=== PATIENT | male | born 1960 | race Caucasian/White ===

== ENCOUNTER 2016-05-24 10:55 | Emergency (ER) | payer OTHER ==
[2016-05-24 11:04] VITALS: BP 137/79; TEMP 98
[2016-05-24 12:05] VITALS: PULSE 77; RESP 16
[2016-05-24] MEDS ORDERED: HYDROcodone/APAP 5-325MG 1 EACH TAB PO STA (12:07)
[2016-05-24] MEDS ORDERED: KETOROLAC 60 MG/2 ML VIAL IM STA (12:07)
--- NOTE | 2016-05-24 12:13 | ED ---
General Adult HPI - General Chief complaint: Extremity Problem,Nontraumatic Stated complaint: Foot pain Time Seen by Provider: 05/24/16 12:01 Source: patient, RN notes reviewed Mode of arrival: wheelchair Limitations: no limitations - History of Present Illness Initial comments: Patient 55-year-old male with prescription of past mental history of gout, who presents emergency room today with chief complaint of flareup of gout to the first MTP joint of the left toe. Patient admits to symptoms started last night. Increased this morning. States that gout past and this feels the same. He denies any other complaints or associated symptoms. Patient denies any recent fever, chills, shortness of breath, chest pain, back pain, abdominal pain , nausea or vomiting, numbness or tingling, dysuria or hematuria, constipation or diarrhea, headaches or visual changes, or any other complaints. - Related Data Previous Rx's Medication Instructions Recorded Indomethacin [Indocin] 50 mg PO TID #30 capsule 01/10/16 Hydrocodone/Acetaminophen [[place] 1 each PO Q6HR PRN #20 tab 05/24/16 5-325] Ibuprofen [Motrin] 600 mg PO Q6HR PRN #40 day 05/24/16 Allergies Allergy/AdvReac Type Severity Reaction Status Date / Time Sulfa (Sulfonamide Allergy Rash/Hives Verified 01/10/16 11:24 Antibiotics) Review of Systems ROS Statement: Those systems with pertinent positive or pertinent negative responses have been documented in the HPI. ROS Other: All systems not noted in ROS Statement are negative. Past Medical History Past Medical History: No Reported History Additional Past Medical History / Comment(s): gout hep c History of Any Multi-Drug Resistant Organisms: None Reported Past Surgical History: No Surgical Hx Reported Past Psychological History: No Psychological Hx Reported Smoking Status: Never smoker Past Alcohol Use History: None Reported Past Drug Use History: None Reported General Exam - General Exam Comments Initial Comments: General: The patient is awake and alert, in no distress, and does not appear acutely ill. Neck: The neck is supple, there is no tenderness or JVD. Cardiovascular: There is a regular rate and rhythm. No murmur, rub or gallop is appreciated. Respiratory: Lungs are clear to auscultation, respirations are non-labored, breath sounds are equal. No wheezes, stridor, rales, or rhonchi. Musculoskeletal: Patient does have redness swelling to the left MTP joint. Locally tender in this area. Sensations are intact pulses equal bilaterally 2+ . Shows full range of motion of all other areas. Tender and range of motion to first digit of the left foot. Neurological: A&O x 3. CN II-XII intact, There are no obvious motor or sensory deficits. Coordination appears grossly intact. Speech is normal. Skin: Skin is warm and dry and no rashes or lesions are noted. Psychiatric: Normal mood and affect. Limitations: no limitations Course Vital Signs 05/24/16 11:02 Temperature 98.0 F Pulse Rate 77 Respiratory 16 Rate Blood Pressure 137/79 O2 Sat by Pulse 98 Oximetry Medical Decision Making - Medical Decision Making Patient admits to history States Feels Safe. Patient Treated for Gout flare up. In the emergency room. Given dose of Toradol and [place] here. Will be discharged home with pain medications advised follow-up family doctor. Disposition Clinical Impression: Gout flare Disposition: HOME SELF-CARE Condition: Good Instructions: Gout (ED) Additional Instructions: Family doctor in the next 2-5 days if symptoms are improved. Please use medications as prescribed. Please return here to emergency room for any symptoms increase or worsen or for any other concerns. Prescriptions: Hydrocodone/Acetaminophen [[place] 5-325] 1 each PO Q6HR PRN #20 tab PRN Reason: Pain Ibuprofen [Motrin] 600 mg PO Q6HR PRN #40 day PRN Reason: Pain Referrals: None,Stated [Primary Care Provider] - 1-2 days Pushpa Perez MD [REFERRING] - 1-2 days Time of Disposition: 12:12
== END 2016-05-24 12:30 | disposition home or self-care (01) ==
LOC: EC 10:55
DX: M10.9 Gout, unspecified (principal); Z88.2 Allergy status to sulfonamides
CPT/HCPCS: 96372; 99283; J1885

== ENCOUNTER 2019-01-22 00:48 | Emergency (ER) | payer OTHER ==
[2019-01-22 00:55] VITALS: BP 144/92; PULSE 94; RESP 18; TEMP 98
== END 2019-01-22 01:21 ==
LOC: EC 00:48
DX: Z02.89 Encounter for other administrative examinations (principal)

== ENCOUNTER 2019-04-03 17:02 | Emergency (ER) | payer OTHER ==
[2019-04-03 17:18] VITALS: BP 149/96; RESP 18
--- NOTE | 2019-04-03 17:32 | ED ---
Overdose HPI - General Chief Complaint: Overdose Stated Complaint: Overdose Time Seen by Provider: 04/03/19 17:12 Source: patient, EMS, RN notes reviewed, old records reviewed Mode of arrival: EMS Limitations: no limitations - History of Present Illness Initial Comments: 58-year-old male presents emergency department today for evaluation for chief complaint of axonal overdose. Patient was found on the side of the road while biking to work. Patient reportedly took a friend's pain medication for his gout in his left foot. He reports he is not used to taking pain medication normally does not take this. He was found unresponsive on the high side of the road and a bystander started CPR. EMS was called and gave him Narcan and Patient revived shortly afterwards. Patient reports that he is regretful and this was not a suicide attempt. He states that he wishes that he would not take the pain medicine and had no intentions on overdosing. He reports that he is on a thether for alcohol use monitoring. - Related Data Previous Rx's Medication Instructions Recorded Hydrocodone/Acetaminophen [[place] 1 each PO Q6HR PRN #20 tab 05/24/16 5-325] Ibuprofen [Motrin] 600 mg PO Q6HR PRN #40 day 05/24/16 Allergies Allergy/AdvReac Type Severity Reaction Status Date / Time Sulfa (Sulfonamide Allergy Rash/Hives Verified 01/22/19 00:54 Antibiotics) Review of Systems ROS Statement: Those systems with pertinent positive or pertinent negative responses have been documented in the HPI. ROS Other: All systems not noted in ROS Statement are negative. Past Medical History Past Medical History: No Reported History Additional Past Medical History / Comment(s): gout, hep c, ex ETOH History of Any Multi-Drug Resistant Organisms: None Reported Past Surgical History: No Surgical Hx Reported Past Psychological History: No Psychological Hx Reported Smoking Status: Never smoker Past Drug Use History: None Reported General Exam - General Exam Comments Initial Comments: 58-year-old male. Alert and oriented. No distress. Limitations: no limitations General appearance: alert, in no apparent distress Head exam: Present: atraumatic, normocephalic, normal inspection Eye exam: Present: normal appearance ENT exam: Present: normal exam, mucous membranes moist Neck exam: Present: normal inspection. Absent: tenderness, meningismus, lymphadenopathy Respiratory exam: Present: normal lung sounds bilaterally. Absent: respiratory distress, wheezes, rales, rhonchi, stridor Cardiovascular Exam: Present: regular rate, normal rhythm, normal heart sounds. Absent: systolic murmur, diastolic murmur, rubs, gallop, clicks GI/Abdominal exam: Present: soft, normal bowel sounds. Absent: distended, tenderness, guarding, rebound, rigid Extremities exam: Present: normal inspection, full ROM, normal capillary refill. Absent: tenderness, pedal edema, joint swelling, calf tenderness Back exam: Present: normal inspection Neurological exam: Present: alert, oriented X3, CN II-XII intact Psychiatric exam: Present: normal affect Skin exam: Present: warm, dry, intact, normal color. Absent: rash Course Vital Signs 04/03/19 04/03/19 17:05 18:15 Pulse Rate 102 H 82 Respiratory 18 Rate Blood Pressure 149/96 O2 Sat by Pulse 96 97 Oximetry Medical Decision Making - Medical Decision Making Patient is a 58-year-old male presents today for accidental overdose. He was revived by Narcan after being unresponsive, sidewalk while biking to work. Patient reports he he took a friend's pain pills for his left foot gout. Is having is alert and oriented. No distress. I discussed elective monitor the Patient for some time to make sure he doesn't have any rebound hypoxia an apneic episode. She denies any suicidal thoughts. Patient case was discussed with Dr. Bliss. Patient will be discharged to go back home. He is not cleared to go back to work at this time tonight. - Lab Data Lab Results 04/03/19 Range/Units 17:32 Urine Opiates Screen Detected H (NotDetected) Ur Oxycodone Screen Not Detected (NotDetected) Urine Methadone Screen Not Detected (NotDetected) Ur Propoxyphene Screen Not Detected (NotDetected) Ur Barbiturates Screen Not Detected (NotDetected) U Tricyclic Antidepress Not Detected (NotDetected) Ur Phencyclidine Scrn Not Detected (NotDetected) Ur Amphetamines Screen Not Detected (NotDetected) U Methamphetamines Scrn Not Detected (NotDetected) U Benzodiazepines Scrn Not Detected (NotDetected) Urine Cocaine Screen Not Detected (NotDetected) U Marijuana (THC) Screen Detected H (NotDetected) Disposition Clinical Impression: Accidental overdose Disposition: HOME SELF-CARE Condition: Good Instructions (If sedation given, give patient instructions): Adult Overdose (ED) Additional Instructions: Go directly home. Please follow up with family doctor if symptoms have not improved over the next two days. Please return to the emergency room if your symptoms increase or worsen or for any other concerns. Is patient prescribed a controlled substance at d/c from ED?: No Referrals: Pushpa Perez MD [Primary Care Provider] - 1-2 days Time of Disposition: 18:03
[2019-04-03 17:50] LABS: Amphetamine Screen,Urine Not Detected (NotDetected); Barbiturate Screen,Urine Not Detected (NotDetected); Benzodiazepines Screen,Urine Not Detected (NotDetected); Cocaine Screen,Urine Not Detected (NotDetected); Methadone Screen, Urine Not Detected (NotDetected); Opiate Screen,Urine Detected (NotDetected); Oxycodone Screen, Urine Not Detected (NotDetected); Phencyclidine Screen,Urine Not Detected (NotDetected); Tricyclic Antidepressant,Urine Not Detected (NotDetected); Urn Cannabinoid Scrn Detected (NotDetected)
[2019-04-03 18:16] VITALS: PULSE 82
== END 2019-04-03 18:16 | disposition home or self-care (01) ==
LOC: EC 17:02
DX: T50.991A Poisoning by other drugs, medicaments and biological substances, accidental (unintentional), initial encounter (principal); M10.9 Gout, unspecified; Y92.89 Other specified places as the place of occurrence of the external cause; Z88.2 Allergy status to sulfonamides
CPT/HCPCS: 80306; 99285

== ENCOUNTER 2019-05-14 10:28 | Emergency (ER) | payer OTHER ==
[2019-05-14 10:36] VITALS: BP 131/93; PULSE 94; RESP 18; TEMP 98.1
[2019-05-14] MEDS ORDERED: MORPHINE SULFATE 4 MG/ML SYRINGE IM STA (11:09)
--- NOTE | 2019-05-14 11:29 | XR ---
EXAMINATION TYPE: XR lumbosacral spine min 4V DATE OF EXAM: 05/14/2019 COMPARISON: None HISTORY: Paresthesia TECHNIQUE: Five-view lumbar spine FINDINGS: There 5 lumbar-type vertebral bodies. The pedicles are intact. Spondylosis is present. No s pondylolytic defects are evident. Mild facet degenerative changes present on the right in the lower l umbar spine. There is posterior disc space narrowing L4-5 L5-S1. Remaining disc heights are preserved . Vertebral body heights are preserved. No suspicious acute changes evident. IMPRESSION: 1. Mild degenerative disc change posterior L4-5 L5-S1 disc spaces. 2. Mild facet degenerative changes lower lumbar spine
--- NOTE | 2019-05-14 11:29 | ED ---
Extremity Problem HPI - General Chief complaint: Extremity Problem,Nontraumatic Stated complaint: bilat foot numbness/swelling Time Seen by Provider: 05/14/19 11:02 Source: patient, RN notes reviewed Mode of arrival: wheelchair Limitations: no limitations - History of Present Illness Initial comments: 58-year-old male presents emergency Department with chief complaint of bilateral leg pain. Patient states that he bent over yesterday and started feeling some discomfort from his mid calf down bilaterally. Patient states felt this feet were swollen but not swollen at this time no discoloration. He states that every now become burning feeling. Patient states he does go to the PCP yearly states he is diagnosed with prediabetes. Patient states that dietary controls. Patient denies any current significant back pain, bowel bladder incontinence or retention denies any trauma to his feet. - Related Data Previous Rx's Medication Instructions Recorded Hydrocodone/Acetaminophen [[place] 1 each PO Q6HR PRN #20 tab 05/24/16 5-325] Ibuprofen [Motrin] 600 mg PO Q6HR PRN #40 day 05/24/16 Ibuprofen [Motrin] 600 mg PO Q8HR PRN #30 tab 05/14/19 metFORMIN HCL [Glucophage] 500 mg PO BID #30 tab 05/14/19 Allergies Allergy/AdvReac Type Severity Reaction Status Date / Time Sulfa (Sulfonamide Allergy Rash/Hives Verified 05/14/19 10:33 Antibiotics) Review of Systems ROS Statement: Those systems with pertinent positive or pertinent negative responses have been documented in the HPI. ROS Other: All systems not noted in ROS Statement are negative. Past Medical History Past Medical History: No Reported History Additional Past Medical History / Comment(s): gout, hep c (cured), ex ETOH History of Any Multi-Drug Resistant Organisms: None Reported Past Surgical History: No Surgical Hx Reported Past Psychological History: No Psychological Hx Reported Smoking Status: Never smoker Past Alcohol Use History: None Reported, Abuse Past Drug Use History: None Reported General Exam Limitations: no limitations General appearance: alert, in no apparent distress Head exam: Present: atraumatic, normocephalic, normal inspection Eye exam: Present: normal appearance, PERRL, EOMI. Absent: scleral icterus, conjunctival injection, periorbital swelling ENT exam: Present: normal exam, normal oropharynx, mucous membranes moist Neck exam: Present: normal inspection, full ROM. Absent: tenderness, meningismus, lymphadenopathy Respiratory exam: Present: normal lung sounds bilaterally. Absent: respiratory distress, wheezes, rales, rhonchi, stridor Cardiovascular Exam: Present: regular rate, normal rhythm, normal heart sounds. Absent: systolic murmur, diastolic murmur, rubs, gallop, clicks Extremities exam: Present: other (Bilateral lower extremity pulses equal bilaterally, equal sensation no discoloration equal warmth) Back exam: Present: full ROM. Absent: tenderness, paraspinal tenderness, vertebral tenderness Neurological exam: Present: alert, oriented X3, CN II-XII intact, reflexes normal. Absent: motor sensory deficit Course Vital Signs 05/14/19 10:33 Temperature 98.1 F Pulse Rate 94 Respiratory 18 Rate Blood Pressure 131/93 O2 Sat by Pulse 96 Oximetry Medical Decision Making - Medical Decision Making Patient had complaints of bilateral foot pain. Patient does have hyperglycemia new onset diabetes and which this may be related to neuropathy. Patient be discharged with metformin, patient was hydrated, given NovoLog. Patient advised follow-up with PCP in 24 hours and return for any worsening symptoms. - Lab Data Result diagrams: 05/14/19 12:15 05/14/19 12:15 Lab Results 05/14/19 05/14/19 05/14/19 Range/Units 11:50 12:15 12:15 WBC 9.9 (3.8-10.6) k/uL RBC 5.17 (4.30-5.90) m/uL Hgb 15.7 (13.0-17.5) gm/dL Hct 48.5 (39.0-53.0) % MCV 93.8 (80.0-100.0) fL MCH 30.4 (25.0-35.0) pg MCHC 32.4 (31.0-37.0) g/dL RDW 13.1 (11.5-15.5) % Plt Count 234 (150-450) k/uL Neutrophils % 68 % Lymphocytes % 17 % Monocytes % 7 % Eosinophils % 2 % Basophils % 3 % Neutrophils # 6.7 (1.3-7.7) k/uL Lymphocytes # 1.7 (1.0-4.8) k/uL Monocytes # 0.7 (0-1.0) k/uL Eosinophils # 0.2 (0-0.7) k/uL Basophils # 0.3 H (0-0.2) k/uL Sodium 133 L (137-145) mmol/L Potassium 5.3 H (3.5-5.1) mmol/L Chloride 94 L (98-107) mmol/L Carbon Dioxide 25 (22-30) mmol/L Anion Gap 14 mmol/L BUN 28 H (9-20) mg/dL Creatinine 0.87 (0.66-1.25) mg/dL Est GFR (CKD-EPI)AfAm >90 (>60 ml/min/1.73 sqM) Est GFR (CKD-EPI)NonAf >90 (>60 ml/min/1.73 sqM) Glucose 363 H (74-99) mg/dL POC Glucose (mg/dL) 329 H (75-99) mg/dL POC Glu [employer]t [employer] ID Cynthia Ochoa Calcium 9.9 (8.4-10.2) mg/dL Total Bilirubin 1.3 (0.2-1.3) mg/dL AST 126 H (17-59) U/L ALT 421 H (4-49) U/L Alkaline Phosphatase 274 H (38-126) U/L Total Protein 8.8 H (6.3-8.2) g/dL Albumin 4.6 (3.5-5.0) g/dL Disposition Clinical Impression: Neuropathy of both feet, Diabetes mellitus, new onset Disposition: HOME SELF-CARE Condition: Stable Instructions (If sedation given, give patient instructions): Peripheral Neuropathy (ED), Type 2 Diabetes in Adults: New Diagnosis (ED) Additional Instructions: Please return to the Emergency Department if symptoms worsen or any other concerns. Prescriptions: metFORMIN HCL [Glucophage] 500 mg PO BID #30 tab Ibuprofen [Motrin] 600 mg PO Q8HR PRN #30 tab PRN Reason: Pain Is patient prescribed a controlled substance at d/c from ED?: No Referrals: Pushpa Perez MD [Primary Care Provider] - 1-2 days Time of Disposition: 13:10
[2019-05-14 11:54] LABS: Glucose,Whole Blood 329 mg/dL (75-99)
[2019-05-14] MEDS ORDERED: INSULIN ASPART (NovoLOG) 100 UNIT/ML VIAL SQ ONE (12:33)
[2019-05-14] MEDS ORDERED: SODIUM CHLORIDE 0.9% 1,000 ML IV ONE (12:35)
[2019-05-14 12:43] LABS: Basophils # (A) 0.3 k/uL (0-0.2); Basophils % (A) 3 %; Eosinophils # (A) 0.2 k/uL (0-0.7); Eosinophils % (A) 2 %; HCT 48.5 % (39.0-53.0); HGB 15.7 gm/dL (13.0-17.5); Lymphocytes # (A) 1.7 k/uL (1.0-4.8); Lymphocytes % (A) 17 %; MCH 30.4 pg (25.0-35.0); MCHC 32.4 g/dL (31.0-37.0); MCV 93.8 fL (80.0-100.0); Mean Platelet Volume 7.5; Monocytes # (A) 0.7 k/uL (0-1.0); Monocytes % (A) 7 %; Neutrophils # (A) 6.7 k/uL (1.3-7.7); Neutrophils % (A) 68 %; Platelet Count 234 k/uL (150-450); RBC 5.17 m/uL (4.30-5.90); RDW 13.1 % (11.5-15.5); WBC 9.9 k/uL (3.8-10.6)
[2019-05-14 12:45] LABS: ALT 421 U/L (4-49); AST 126 U/L (17-59); African American GFR (CKD) >90 (>60 ml/min/1.73 sqM); Albumin 4.6 g/dL (3.5-5.0); Alkaline Phosphatase 274 U/L (38-126); Anion Gap 14 mmol/L; Blood Urea Nitrogen 28 mg/dL (9-20); Calcium 9.9 mg/dL (8.4-10.2); Carbon Dioxide 25 mmol/L (22-30); Chloride 94 mmol/L (98-107); Glucose 363 mg/dL (74-99); Non-African American GFR(CKD) >90 (>60 ml/min/1.73 sqM); Potassium 5.3 mmol/L (3.5-5.1); Sodium 133 mmol/L (137-145); Total Bilirubin 1.3 mg/dL (0.2-1.3); Total Protein 8.8 g/dL (6.3-8.2)
[2019-05-14] MEDS ORDERED: ACET/COD 300 MG/30 MG STARTER PACK 6 TAB BTL PO STA (13:11)
== END 2019-05-14 13:45 | disposition home or self-care (01) ==
LOC: EC 10:28
DX: E11.40 Type 2 diabetes mellitus with diabetic neuropathy, unspecified (principal); Z88.2 Allergy status to sulfonamides
CPT/HCPCS: 36415; 80053; 82009; 85025; 72110; 99284; 96360; 96372; J2270

== ENCOUNTER 2019-09-07 20:27 | Observation (INO) | payer OTHER ==
[2019-09-07 20:48] LABS: Basophils # (A) 0.1 k/uL (0-0.2); Basophils % (A) 1 %; Eosinophils # (A) 0.4 k/uL (0-0.7); Eosinophils % (A) 3 %; HCT 48.2 % (39.0-53.0); HGB 15.1 gm/dL (13.0-17.5); Hypochromasia Slight; Lymphocytes # (A) 4.2 k/uL (1.0-4.8); Lymphocytes % (A) 31 %; MCHC 31.3 g/dL (31.0-37.0); MCV 102.3 fL (80.0-100.0); Macrocytosis Slight; Mean Platelet Volume 7.3; Monocytes # (A) 0.8 k/uL (0-1.0); Monocytes % (A) 6 %; Neutrophils # (A) 7.4 k/uL (1.3-7.7); Neutrophils % (A) 55 %; Platelet Count 260 k/uL (150-450); RBC 4.71 m/uL (4.30-5.90); RDW 13.2 % (11.5-15.5); WBC 13.5 k/uL (3.8-10.6)
[2019-09-07 20:59] LABS: Albumin 5.2 g/dL (3.5-5.0); Calcium 9.3 mg/dL (8.4-10.2); Creatine Kinase 702 U/L (55-170); Potassium 3.7 mmol/L (3.5-5.1); Total Bilirubin 0.4 mg/dL (0.2-1.3); Total Protein 8.9 g/dL (6.3-8.2)
[2019-09-07 20:59] LABS: Appearance,Urine Clear (Clear); Bilirubin,Urine Negative (Negative); Blood,Urine Small (Negative); Color,Urine Yellow; Glucose,Urine (UA) 4+ (Negative); Hyaline Casts,Urine 10 /lpf (0-2); Ketones,Urine 1+ (Negative); Leukocyte Esterase,Urine Negative (Negative); Mucus,Urine Rare /hpf; Nitrite,Urine Negative (Negative); Protein,Urine 1+ (Negative); RBC,Urine <1 /hpf (0-5); Specific Gravity,Urine 1.026 (1.001-1.035); Urobilinogen,Urine <2.0 mg/dL (<2.0); WBC,Urine <1 /hpf (0-5)
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
[2019-09-07 21:05] LABS: Amphetamine Screen,Urine Not Detected (NotDetected); Barbiturate Screen,Urine Not Detected (NotDetected); Benzodiazepines Screen,Urine Not Detected (NotDetected); Cocaine Screen,Urine Not Detected (NotDetected); Methadone Screen, Urine Not Detected (NotDetected); Opiate Screen,Urine Not Detected (NotDetected); Oxycodone Screen, Urine Not Detected (NotDetected); Phencyclidine Screen,Urine Not Detected (NotDetected); Tricyclic Antidepressant,Urine Not Detected (NotDetected); Urn Cannabinoid Scrn Not Detected (NotDetected)
[2019-09-07 21:09] LABS: Prothrombin Time 10.2 sec (9.0-12.0)
[2019-09-07 21:13] LABS: Creatine Kinase MB 6.3 ng/mL (0.0-2.4); Partial Thromboplastin Time 20.7 sec (22.0-30.0); Troponin I <0.012 ng/mL (0.000-0.034)
--- NOTE | 2019-09-07 21:19 | XR ---
EXAMINATION TYPE: XR pelvis AP view DATE OF EXAM: 09/07/2019 COMPARISON: NONE HISTORY: Pain TECHNIQUE: Single view FINDINGS: Pelvic ring is intact. Proximal femurs and hip joints are intact. Sacroiliac joints are nor mal. There is no evidence of a fracture. There is no sign of hip dysplasia. IMPRESSION: Negative pelvis exam. No fracture.
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
[2019-09-07 22:06] LABS: Acetaminophen <10.0 ug/mL
[2019-09-07] MEDS ORDERED: hydrALAZINE HCL 20 MG/ML 1 ML VIAL IVP STA (22:52)
[2019-09-07] MEDS ORDERED: SODIUM CHLORIDE 0.9% 1,000 ML IV ONE (22:58)
[2019-09-07] MEDS ORDERED: SODIUM CHLORIDE 0.9% 1,000 ML IV SCH (23:00)
[2019-09-07] MEDS ORDERED: LORazepam 2 MG/ML INJ IV STA (23:01)
[2019-09-07 23:25] LABS: Glucose,Whole Blood 272 mg/dL (75-99)
[2019-09-08 00:07] VITALS: BP 162/100; PULSE 103; RESP 17; TEMP 98.1
[2019-09-08] MEDS ORDERED: INSULIN ASPART (NovoLOG) 100 UNIT/ML VIAL SQ SCH (07:30)
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
== END 2019-09-08 01:58 | disposition left against medical advice (07) ==
LOC: EC 20:27 → 4SSUR 23:02
PROVIDERS: ADMIT Surgery; ATTEND Surgery
DX: S06.9X9A Unspecified intracranial injury with loss of consciousness of unspecified duration, initial encounter (principal); S00.81XA Abrasion of other part of head, initial encounter; R41.82 Altered mental status, unspecified; I10 Essential (primary) hypertension; E87.2 Acidosis; R73.9 Hyperglycemia, unspecified; F10.129 Alcohol abuse with intoxication, unspecified; M10.9 Gout, unspecified; Z53.29 Procedure and treatment not carried out because of patient's decision for other reasons; Z79.84 Long term (current) use of oral hypoglycemic drugs; Z79.1 Long term (current) use of non-steroidal anti-inflammatories (NSAID); Z79.891 Long term (current) use of opiate analgesic; Z88.2 Allergy status to sulfonamides; Z86.19 Personal history of other infectious and parasitic diseases; V18.4XXA Pedal cycle driver injured in noncollision transport accident in traffic accident, initial encounter; Z03.818 Encounter for observation for suspected exposure to other biological agents ruled out
CPT/HCPCS: 96361 ×2; 96374; 96375; 99291; 36415; 93005; 86900; 86901; 80053; 82150; 82550; 82553; 82009; 83605 ×2; 83690; 84484; 85025; 85610; 85730; 86850; 81001; 80306; 87635; 72170; 71045; 72125; 70450; G0378; G0480 ×2; J2060; J0360; 80320; 80329

== ENCOUNTER 2019-11-19 23:26 | Emergency (ER) | payer OTHER ==
[2019-11-19 23:33] VITALS: RESP 18
--- NOTE | 2019-11-19 23:38 | ED ---
Neuro HPI - General Chief Complaint: Neuro Symptoms/Deficit Stated Complaint: Neuro Deficit Time Seen by Provider: 11/19/19 23:38 Source: patient Mode of arrival: ambulatory Limitations: no limitations - History of Present Illness Is the patient presenting with stroke symptoms?: No -: hour(s) Initial Comments: Ji is a 59-year-old male who presents to the ER today for evaluation of right arm weakness. Patient reports he noticed today that he cannot extend his wrist or move his fingers on his right hand. He denies any falls or injuries. He denies any known trauma. He states that initially he thought he had supplements arm funny however it hasn't improved over a course of the day which prompted him to come to the ER for evaluation. Patient denies any associated headache, vision change, difficulty with speech or swallowing, weakness in the legs or difficulty walking. Patient reports normal strength and range of motion with the shoulder and elbow and complains only of weakness in the wrist and hand. Patient also reports that the wrist and hand feel numb. - Related Data Home Medications: Home Medications Medication Instructions Recorded Confirmed HYDROcodone/APAP 10-325MG [[place] 0.5 - 1 tab PO DAILY PRN 09/07/19 09/07/19 10-325] Insulin Glargine,Hum.rec.anlog See Protocol SQ DAILY 09/07/19 09/07/19 [Basaglar Kwikpen U-100] Naproxen 500 mg PO BID PRN 09/07/19 09/07/19 metFORMIN HCL [Glucophage] 850 mg PO AC-BID 09/07/19 09/07/19 Allergies/Adverse Reactions: Allergies Allergy/AdvReac Type Severity Reaction Status Date / Time Sulfa (Sulfonamide Allergy Rash/Hives Verified 11/19/19 23:33 Antibiotics) Review of Systems ROS Statement: Those systems with pertinent positive or pertinent negative responses have been documented in the HPI. ROS Other: All systems not noted in ROS Statement are negative. General Exam - General Exam Comments Initial Comments: Physical Exam GENERAL: Appears older than stated age HENT: Normocephalic Well-healing abrasion on the crown of the head secondary to fall EYES: PERRL, EOMI PULMONARY: Unlabored respirations. CARDIOVASCULAR: RRR Warm and well perfused extremities ABDOMEN: Non-distended SKIN: Well-healing abrasion on the anterior chest secondary to previous fall : Deferred NEUROLOGIC: Alert and oriented Normal speech Normal gait Inability to extend the wrist OR abduct the fingers of the right hand. Normal flexion and extension of the elbow, normal strength of the shoulder. Decreased sensation in the radial nerve distribution MUSCULOSKELETAL: No signs of trauma, weakness as noted above PSYCHIATRIC: No SI/HI Limitations: no limitations Stroke MDM - Lab Data Result diagrams: 11/20/19 00:41 11/20/19 00:41 Lab Results 11/20/19 11/20/19 11/20/19 Range/Units 00:41 00:41 00:41 WBC 6.2 (3.8-10.6) k/uL RBC 4.38 (4.30-5.90) m/uL Hgb 13.6 (13.0-17.5) gm/dL Hct 42.8 (39.0-53.0) % MCV 97.9 (80.0-100.0) fL MCH 31.1 (25.0-35.0) pg MCHC 31.8 (31.0-37.0) g/dL RDW 12.3 (11.5-15.5) % Plt Count 225 (150-450) k/uL Neutrophils % 62 % Lymphocytes % 26 % Monocytes % 5 % Eosinophils % 3 % Basophils % 1 % Neutrophils # 3.8 (1.3-7.7) k/uL Lymphocytes # 1.6 (1.0-4.8) k/uL Monocytes # 0.3 (0-1.0) k/uL Eosinophils # 0.2 (0-0.7) k/uL Basophils # 0.1 (0-0.2) k/uL PT 9.6 (9.0-12.0) sec INR 0.9 (<1.2) APTT 22.2 (22.0-30.0) sec Sodium 139 (137-145) mmol/L Potassium 4.3 (3.5-5.1) mmol/L Chloride 102 (98-107) mmol/L Carbon Dioxide 27 (22-30) mmol/L Anion Gap 10 mmol/L BUN 11 (9-20) mg/dL Creatinine 0.60 L (0.66-1.25) mg/dL Est GFR (CKD-EPI)AfAm >90 (>60 ml/min/1.73 sqM) Est GFR (CKD-EPI)NonAf >90 (>60 ml/min/1.73 sqM) Glucose 240 H (74-99) mg/dL Calcium 9.1 (8.4-10.2) mg/dL Total Bilirubin 0.5 (0.2-1.3) mg/dL AST 88 H (17-59) U/L ALT 46 (4-49) U/L Alkaline Phosphatase 66 (38-126) U/L Creatine Kinase 1073 H* (55-170) U/L Total Protein 7.4 (6.3-8.2) g/dL Albumin 4.4 (3.5-5.0) g/dL - NIH Stroke Scale 1a. Level of Consciousness: (0) alert 1b. LOC Questions: (0) answers correctly 1c. LOC Commands: (0) performs tasks correctly 2. Best Gaze: (0) normal 3. Visual: (0) no visual loss 4. Facial Palsy: (0) normal symmetrical movement 5a. Motor Arm Left: (0) no drift 5b. Motor Arm Right: (0) no drift 6a. Motor Leg Left: (0) no drift 6b. Motor Leg Right: (0) no drift 7. Limb Ataxia: (0) absent 8. Sensory: (0) normal 9. Best Language: (0) no aphasia 10. Dysarthria: (0) normal 11. Extinction/Inattention: (0) no abnormality NIH Score total: 0 - Thrombolytic Inclusion/Exclusion Thrombolytic Exclusion Criteria: Symptom Onset > 4.5 Hours - Medical Decision Making Patient was seen and evaluated history is obtained from the patient History and physical exam are concerning with a radial nerve palsy discussed with the patient that this is also cul-de-sac urinary palsy and often caused by compression in the axilla or compression of the arm. Patient does admit to having concern for this. Of note the patient does have a history of polysubstance abuse and was [place] un[place] this [place]. I do a very high suspicion that this is isolated mononeuropathy, however given the patient's relatively recent head trauma we will obtain labs and CT imaging Labs resulted with elevated creatinine kinase Ayah this is likely related to patient sleeping on the arm and an atypical position Head CT had no acute findings Results were discussed with patient who expresses relief and is comfortable with plan for discharge home. I did offer to place the patient's wrist in a splint for support however he declined stating that he would just follow with Dr. Burnett tomorrow. Past Medical History Past Medical History: No Reported History Additional Past Medical History / Comment(s): gout, hep c (cured), ex ETOH History of Any Multi-Drug Resistant Organisms: None Reported Past Surgical History: No Surgical Hx Reported Past Psychological History: No Psychological Hx Reported Smoking Status: Never smoker Past Alcohol Use History: Abuse, Daily Past Drug Use History: None Reported Course Vital Signs 11/19/19 23:27 Temperature 98.4 F Pulse Rate 104 H Respiratory 18 Rate Blood Pressure 149/90 O2 Sat by Pulse 89 L Oximetry Disposition Clinical Impression: Right radial nerve palsy Disposition: HOME SELF-CARE Condition: Stable Instructions (If sedation given, give patient instructions): Radial Nerve Palsy (ED) Is patient prescribed a controlled substance at d/c from ED?: No Referrals: Pushpa Perez MD [Primary Care Provider] - 1-2 days
[2019-11-20] MEDS ORDERED: SODIUM CHLORIDE 0.9% 1,000 ML IV STA (00:15)
[2019-11-20 00:50] LABS: Basophils # (A) 0.1 k/uL (0-0.2); Basophils % (A) 1 %; Eosinophils # (A) 0.2 k/uL (0-0.7); Eosinophils % (A) 3 %; HCT 42.8 % (39.0-53.0); HGB 13.6 gm/dL (13.0-17.5); Lymphocytes # (A) 1.6 k/uL (1.0-4.8); Lymphocytes % (A) 26 %; MCH 31.1 pg (25.0-35.0); MCHC 31.8 g/dL (31.0-37.0); MCV 97.9 fL (80.0-100.0); Mean Platelet Volume 7.3; Monocytes # (A) 0.3 k/uL (0-1.0); Monocytes % (A) 5 %; Neutrophils # (A) 3.8 k/uL (1.3-7.7); Neutrophils % (A) 62 %; Platelet Count 225 k/uL (150-450); RBC 4.38 m/uL (4.30-5.90); RDW 12.3 % (11.5-15.5); WBC 6.2 k/uL (3.8-10.6)
[2019-11-20 01:00] LABS: ALT 46 U/L (4-49); AST 88 U/L (17-59); African American GFR (CKD) >90 (>60 ml/min/1.73 sqM); Albumin 4.4 g/dL (3.5-5.0); Alkaline Phosphatase 66 U/L (38-126); Anion Gap 10 mmol/L; Blood Urea Nitrogen 11 mg/dL (9-20); Calcium 9.1 mg/dL (8.4-10.2); Carbon Dioxide 27 mmol/L (22-30); Chloride 102 mmol/L (98-107); Glucose 240 mg/dL (74-99); Non-African American GFR(CKD) >90 (>60 ml/min/1.73 sqM); Potassium 4.3 mmol/L (3.5-5.1); Sodium 139 mmol/L (137-145); Total Bilirubin 0.5 mg/dL (0.2-1.3); Total Protein 7.4 g/dL (6.3-8.2)
[2019-11-20 01:02] LABS: INR 0.9 (<1.2); Partial Thromboplastin Time 22.2 sec (22.0-30.0); Prothrombin Time 9.6 sec (9.0-12.0)
--- NOTE | 2019-11-20 01:13 | CT ---
EXAMINATION TYPE: CT brain wo con DATE OF EXAM: 11/20/2019 COMPARISON: September 07, 2019 HISTORY: injury to top of head, numbess in right hand, neuro deficits, stroke suspected CT DLP: 1172.4 mGycm Automated exposure control for dose reduction was used. Ventricles and sulci appear normal. There is no mass effect nor midline shift. There is no sign of in tracranial hemorrhage. The calvarium is intact. There is no evidence of cerebral edema. IMPRESSION: Head CT scan appears normal for age. No change.
[2019-11-20 01:15] LABS: Creatine Kinase 1073 U/L (55-170)
[2019-11-20 02:51] VITALS: BP 151/72; PULSE 70; TEMP 98.1
== END 2019-11-20 02:51 | disposition home or self-care (01) ==
LOC: EC 23:26
DX: G56.31 Lesion of radial nerve, right upper limb (principal); S00.01XA Abrasion of scalp, initial encounter; S20.319A Abrasion of unspecified front wall of thorax, initial encounter; Z79.4 Long term (current) use of insulin; Z88.2 Allergy status to sulfonamides; Z53.29 Procedure and treatment not carried out because of patient's decision for other reasons; W19.XXXA Unspecified fall, initial encounter
CPT/HCPCS: 36415; 70450; 80053; 82550; 85025; 85610; 85730; 96360; 96361; 99285

== ENCOUNTER 2021-01-15 16:09 | Emergency (ER) | payer OTHER ==
[2021-01-15 16:19] VITALS: RESP 18
[2021-01-15 16:25] LABS: Glucose,Whole Blood 57 mg/dL (75-99)
[2021-01-15 16:46] LABS: Glucose,Whole Blood 106 mg/dL (75-99)
[2021-01-15] MEDS ORDERED: HYDROmorphone 1 MG/ML 1 ML SYRINGE IM STA (17:43)
--- NOTE | 2021-01-15 17:56 | ED ---
Back Pain HPI - General Chief Complaint: Back Pain/Injury Stated Complaint: Hypoglycemia, back pain Time Seen by Provider: 01/15/21 17:14 Source: patient, EMS, RN notes reviewed Limitations: no limitations - History of Present Illness Initial Comments: This a 60-year-old male presents emergency from chief complaint low back pain. Patient states his walking states that he had a sudden onset of pain in his low back he states he felt like he pulled a muscle. Patient states that his ankle EMS at that time. Patient states his walking it's of the knee and he had not eaten all day after taking his diabetic medications. Patient went of low glucose of 57. Patient denies any chest pain denies any bowel bladder incontinence or retention of saddle anesthesias. Patient states this pain only has low back injuries had pain like this in the past. - Related Data Home Medications Medication Instructions Recorded Confirmed metFORMIN HCL [Glucophage] 850 mg PO AC-BID 09/07/19 01/15/21 Previous Rx's Medication Instructions Recorded Cyclobenzaprine [Flexeril] 10 mg PO TID PRN #15 tab 01/15/21 Ibuprofen [Motrin] 600 mg PO Q8HR PRN #30 tab 01/15/21 Allergies Allergy/AdvReac Type Severity Reaction Status Date / Time Sulfa (Sulfonamide Allergy Rash/Hives Verified 01/15/21 17:39 Antibiotics) Review of Systems ROS Statement: Those systems with pertinent positive or pertinent negative responses have been documented in the HPI. ROS Other: All systems not noted in ROS Statement are negative. Past Medical History Past Medical History: Diabetes Mellitus Additional Past Medical History / Comment(s): gout, hep c (cured), ex ETOH History of Any Multi-Drug Resistant Organisms: None Reported Past Surgical History: No Surgical Hx Reported Past Psychological History: No Psychological Hx Reported Smoking Status: Never smoker Past Alcohol Use History: Daily Past Drug Use History: None Reported General Exam Limitations: no limitations General appearance: alert, in no apparent distress Head exam: Present: atraumatic, normocephalic, normal inspection Eye exam: Present: normal appearance, PERRL, EOMI. Absent: scleral icterus, conjunctival injection, periorbital swelling ENT exam: Present: normal exam, normal oropharynx, mucous membranes moist Neck exam: Present: normal inspection, full ROM. Absent: tenderness, meningismus, lymphadenopathy Respiratory exam: Present: normal lung sounds bilaterally. Absent: respiratory distress, wheezes, rales, rhonchi, stridor Cardiovascular Exam: Present: regular rate, normal rhythm, normal heart sounds. Absent: systolic murmur, diastolic murmur, rubs, gallop, clicks GI/Abdominal exam: Present: soft, normal bowel sounds. Absent: distended, tenderness, guarding, rebound, rigid Extremities exam: Present: normal inspection, full ROM, normal capillary refill. Absent: tenderness, pedal edema, joint swelling, calf tenderness Back exam: Present: full ROM, tenderness, muscle spasm, paraspinal tenderness. Absent: vertebral tenderness Neurological exam: Present: reflexes normal. Absent: motor sensory deficit Skin exam: Present: warm, dry, intact, normal color. Absent: rash Course Vital Signs 01/15/21 01/15/21 16:11 18:28 Pulse Rate 107 H 107 H Respiratory 18 18 Rate Blood Pressure 119/92 126/88 O2 Sat by Pulse 100 98 Oximetry Medical Decision Making - Medical Decision Making 60-year-old presented for low back pain. Patient is a lumbar strain. He is neurologically intact with no red flag symptoms. X-rays unremarkable. Patient did have some mild hyperglycemia. Was able to eat and drink here with no problems. Patient discharged. - Lab Data Lab Results 01/15/21 01/15/21 Range/Units 16:13 16:44 POC Glucose (mg/dL) 57 L 106 H (75-99) mg/dL POC Glu Core Worker ID Beto Segal Alana Disposition Clinical Impression: Hypoglycemia, Lumbar strain Disposition: HOME SELF-CARE Condition: Stable Instructions (If sedation given, give patient instructions): Acute Low Back Pain (ED) Additional Instructions: Please return to the Emergency Department if symptoms worsen or any other concerns. Prescriptions: Cyclobenzaprine [Flexeril] 10 mg PO TID PRN #15 tab PRN Reason: Muscle Spasm Ibuprofen [Motrin] 600 mg PO Q8HR PRN #30 tab PRN Reason: Pain Is patient prescribed a controlled substance at d/c from ED?: No Referrals: Pushpa Perez MD [Primary Care Provider] - 1-2 days Time of Disposition: 18:56
--- NOTE | 2021-01-15 18:40 | XR ---
EXAMINATION TYPE: XR lumbar spine 2 or 3V DATE OF EXAM: 01/15/2021 CLINICAL HISTORY: Pain TECHNIQUE: Frontal and lateral images of the lumbar spine are obtained. COMPARISON: 05/14/2019 FINDINGS: There are 5 lumbar type vertebral bodies identified. Levocurvature of the lumbar spine. No acute fracture or dislocation. Vertebral body heights are normal. There is moderate diffuse multilev el degenerative spurring of the endplates. Multilevel facet arthropathy. No spondylolisthesis. The o verlying soft tissue appears unremarkable. IMPRESSION: No acute fracture or dislocation is seen in the lumbar spine.
[2021-01-15] MEDS ORDERED: DIAZEPAM 5 MG/ML 2 ML INJ IM ONE (18:54)
[2021-01-15] MEDS ORDERED: ACET/COD 300 MG/30 MG STARTER PACK 6 TAB BTL PO STA (18:54)
[2021-01-15 19:30] VITALS: BP 123/90; PULSE 112
== END 2021-01-15 19:27 | disposition home or self-care (01) ==
LOC: EC 16:09
DX: S39.012A Strain of muscle, fascia and tendon of lower back, initial encounter (principal); E11.649 Type 2 diabetes mellitus with hypoglycemia without coma; Z79.84 Long term (current) use of oral hypoglycemic drugs; Z88.2 Allergy status to sulfonamides; X58.XXXA Exposure to other specified factors, initial encounter
CPT/HCPCS: 99284; 96372 ×2; 36415; 72100; J3360; J1170

== ENCOUNTER 2021-01-17 05:24 | Emergency (ER) | payer OTHER ==
[2021-01-17 05:32] VITALS: BP 116/83; PULSE 65; RESP 20; TEMP 99
--- NOTE | 2021-01-17 05:51 | XR ---
EXAMINATION TYPE: XR Hip Complete RT DATE OF EXAM: 01/17/2021 COMPARISON: NONE HISTORY: Hip pain TECHNIQUE: 2 views FINDINGS: The right hemipelvis is intact. Proximal femur is intact. There is no fracture nor dislocat ion. Sacroiliac joint is intact. IMPRESSION: Negative right hip exam. No fracture.
[2021-01-17 05:55] LABS: Glucose,Whole Blood 137 mg/dL (75-99)
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
[2021-01-17] MEDS ORDERED: ACETAMINOPHEN TAB 500 MG TAB PO STA (06:11)
[2021-01-17] MEDS ORDERED: IBUPROFEN 600 MG TAB PO STA (06:11)
[2021-01-17] MEDS ORDERED: IBUPROFEN 600 MG STARTER PACK 4 TAB BTL PO STA (06:11)
== END 2021-01-17 06:29 | disposition home or self-care (01) ==
LOC: EC 05:24
DX: S70.01XA Contusion of right hip, initial encounter (principal); E11.9 Type 2 diabetes mellitus without complications; Z79.1 Long term (current) use of non-steroidal anti-inflammatories (NSAID); Z79.84 Long term (current) use of oral hypoglycemic drugs; Z79.899 Other long term (current) drug therapy; Z88.2 Allergy status to sulfonamides; W01.0XXA Fall on same level from slipping, tripping and stumbling without subsequent striking against object, initial encounter; Y92.009 Unspecified place in unspecified non-institutional (private) residence as the place of occurrence of the external cause
CPT/HCPCS: 36415; 73502; 99284

== ENCOUNTER 2021-01-18 22:42 | Inpatient (IN) | payer OTHER ==
[2021-01-18] MEDS ORDERED: SODIUM CHLORIDE 0.9% 1,000 ML IV STA ×2 (22:58)
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
[2021-01-18 23:02] LABS: Glucose,Whole Blood 170 mg/dL (75-99)
--- NOTE | 2021-01-18 23:15 | XR ---
EXAMINATION TYPE: XR pelvis AP view DATE OF EXAM: 01/18/2021 COMPARISON: NONE HISTORY: Fall. Pain. TECHNIQUE: Single view FINDINGS: Pelvic ring is intact. Proximal femurs and hip joints are intact. Sacroiliac joints appear normal. There is 2 cm exostosis on the right iliac crest. IMPRESSION: Negative exam. No fracture seen. Right hip not changed compared to yesterday.
[2021-01-18 23:21] LABS: Basophils % (A) 0 %; Eosinophils # (A) 0.1 k/uL (0-0.7); Eosinophils % (A) 1 %; HCT 37.2 % (39.0-53.0); Lymphocytes % (A) 28 %; MCH 35.1 pg (25.0-35.0); MCHC 34.8 g/dL (31.0-37.0); MCV 100.8 fL (80.0-100.0); Mean Platelet Volume 10.8; Monocytes # (A) 0.3 k/uL (0-1.0); Monocytes % (A) 9 %; Neutrophils % (A) 58 %; RBC 3.69 m/uL (4.30-5.90); RDW 12.6 % (11.5-15.5); WBC 3.4 k/uL (3.8-10.6)
[2021-01-18] MEDS ORDERED: ONDANSETRON 4 MG/2 ML VIAL IVP STA (23:34)
[2021-01-18] MEDS ORDERED: LORazepam 2 MG/ML INJ IV STA (23:34)
[2021-01-18] MEDS ORDERED: THIAMINE 100 MG/ML 2 ML VIAL IM STA (23:34)
[2021-01-18] MEDS ORDERED: LORazepam 2 MG/ML INJ IV PRN ×3 (23:34)
[2021-01-18] MEDS ORDERED: DIAZEPAM 5 MG/ML 2 ML INJ IVP STA (23:34)
--- NOTE | 2021-01-18 23:35 | XR ---
EXAMINATION TYPE: XR chest 1V DATE OF EXAM: 01/18/2021 COMPARISON: September 07, 2019 HISTORY: Fall. Pain. TECHNIQUE: Single view FINDINGS: Heart and mediastinum are within normal limits. Lungs are clear of infiltrate. There is old left side healed rib fractures. Costophrenic angles are clear. There is no sign of pneumothorax. IMPRESSION: No active cardiopulmonary disease. No change.
[2021-01-18 23:36] LABS: Platelet Count 45 k/uL (150-450)
[2021-01-18 23:38] LABS: ALT 127 U/L (4-49); AST 312 U/L (17-59); African American GFR (CKD) >90 (>60 ml/min/1.73 sqM); Albumin 4.2 g/dL (3.5-5.0); Alcohol <10 mg/dL; Alkaline Phosphatase 115 U/L (38-126); Anion Gap 11 mmol/L; Blood Urea Nitrogen 25 mg/dL (9-20); Calcium 9.5 mg/dL (8.4-10.2); Carbon Dioxide 25 mmol/L (22-30); Chloride 96 mmol/L (98-107); Glucose 159 mg/dL (74-99); Lipase 1268 U/L (23-300); Magnesium 1.5 mg/dL (1.6-2.3); Non-African American GFR(CKD) >90 (>60 ml/min/1.73 sqM); Phosphorus 2.9 mg/dL (2.5-4.5); Potassium 4.1 mmol/L (3.5-5.1); Sodium 132 mmol/L (137-145); Total Bilirubin 1.6 mg/dL (0.2-1.3); Total Protein 7.5 g/dL (6.3-8.2)
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
[2021-01-19] MEDS ORDERED: SODIUM CHLORIDE 0.9% 1,000 ML IV STA (00:02)
[2021-01-19] MEDS ORDERED: MORPHINE SULFATE 4 MG/ML SYRINGE IVP STA (00:05)
[2021-01-19] MEDS ORDERED: PANTOPRAZOLE 40 MG/10 ML VIAL IVP STA (00:05)
[2021-01-19] MEDS ORDERED: ONDANSETRON 4 MG/2 ML VIAL IVP PRN (00:15)
[2021-01-19] MEDS ORDERED: NALOXONE 0.4 MG/ML 1 ML VIAL IV PRN (00:27)
[2021-01-19] MEDS: MAGNESIUM SULFATE-D5W PMX 1 GM in DEXTROSE/WATER 1 100ML.BAG IVPB SCH ×5 (01:19→15:18)
[2021-01-19 05:53] LABS: Appearance,Urine Clear (Clear); Bilirubin,Urine Negative (Negative); Blood,Urine Negative (Negative); Color,Urine Yellow; Glucose,Urine (UA) 2+ (Negative); Ketones,Urine Trace (Negative); Leukocyte Esterase,Urine Negative (Negative); Nitrite,Urine Negative (Negative); PH, Urine 5.5 (5.0-8.0); Protein,Urine Trace (Negative); Specific Gravity,Urine 1.026 (1.001-1.035)
[2021-01-19] MEDS: MORPHINE SULFATE 4 MG/ML SYRINGE IVP PRN ×2 (08:48→12:29)
[2021-01-19] MEDS: ENOXAPARIN 40 MG/0.4 ML SYRINGE SQ SCH (08:48)
[2021-01-19] MEDS: THIAMINE 100 MG TAB PO SCH ×2 (08:48→22:53)
[2021-01-19] MEDS: MULTIVITAMINS, THERA 1 EACH TAB PO SCH (08:49)
[2021-01-19] MEDS ORDERED: PANTOPRAZOLE 40 MG/10 ML VIAL IVP SCH (09:00)
--- NOTE | 2021-01-19 14:23 | P.HPIM ---
History of Present Illness H&P Date: 01/19/21 This is a 60-year-old male who presented to the emergency department with weakness and loss of appetite and acute alcohol withdrawal. Patient also states that his blood sugars have been low and has had decreased appetite. Patient admits to drinking approximately 2-3 24 ounce cans of beer every other day with his most recent intake of beer being last Monday. Patient also admits to having more frequent falls and most recently fell having right-sided hip pain. Patient denies any loss of consciousness or hitting his head during the fall. On exam patient is showing signs of acute alcohol withdrawal and will place CIWA protocol and continue to monitor closely. Patient is requesting to go home and is alert and oriented although having moments of confusion and altered mental status. We'll add Accu-Cheks and continue to monitor blood sugars as well. He was also found to have acute pancreatitis most likely related to alcohol with a lipase of 1268 and will continue with IV hydration. Urinalysis was negative showing 2+ glucose and a trace of ketones. Serum alcohol was less than 10 and COVID-19 was negative. Magnesium was found to be low at 1.5 and will replace and repeat labs. Liver functions are elevated most likely secondary to chronic alcohol use. White blood count is 3.4 with a hemoglobin of 13, sodium is 132 with a potassium of 4.1 and current creatinine is 0.77. Patient had x-ray of the pelvis for recent fall which was negative with no fractures noted with a continued 2 cm exostosis of the right hip. Chest x-ray shows no active cardiopulmonary disease with no infiltrates noted. Given patient's altered mental status patient also had a CT of the brain and cervical spine which showed no fractures with continued degenerative disc narrow spacing from C3 to T1 with no subluxation and no evidence of traumatic c injury to the brain with mild enlargement of the ventricles with no mass effect or midline shift noted and no intracranial hemorrhage noted as well. Patient denies any chest pain, shortness of breath, or palpitations. Patient reports having decreased oral intake and decreased appetite and has blood sugars have been uncontrolled. Review of Systems Constitutional: Denies chills, Denies fever Ears, nose, mouth and throat: Denies headache, Denies sore throat Cardiovascular: Denies chest pain, Denies shortness of breath Respiratory: Denies cough Gastrointestinal: Reports loss of appetite Musculoskeletal: Reports frequent falls, Reports gait dysfunction, Reports myalgias Musculoskeletal: right: hip pain, left: knee pain Integumentary: Reports wounds (Multiple abrasions and scabbing noted of left knee due to previous falls with no surrounding redness or cellulitis noted) Neurological: Reports change in mentation, Reports head injury, Reports lack of coordination, Reports weakness Psychiatric: Reports change in appetite Endocrine: Reports low blood sugars Past Medical History Past Medical History: Diabetes Mellitus Additional Past Medical History / Comment(s): gout, hep c (cured), ex ETOH, CHI History of Any Multi-Drug Resistant Organisms: None Reported Past Surgical History: Orthopedic Surgery Additional Past Surgical History / Comment(s): celsa knee Past Psychological History: No Psychological Hx Reported Smoking Status: Never smoker Past Alcohol Use History: Daily Past Drug Use History: None Reported Medications and Allergies Home Medications Medication Instructions Recorded Confirmed Type metFORMIN HCL [Glucophage] 850 mg PO AC-BID 09/07/19 01/18/21 History Cyclobenzaprine [Flexeril] 10 mg PO TID PRN #15 tab 01/15/21 01/18/21 Rx Ibuprofen [Motrin] 600 mg PO Q8HR PRN #30 tab 01/15/21 01/18/21 Rx HYDROcodone/APAP 5-325MG [Wall 1 tab PO DAILY PRN 01/18/21 01/18/21 History 5-325] Allergies Allergy/AdvReac Type Severity Reaction Status Date / Time Sulfa (Sulfonamide Allergy Rash/Hives Verified 01/17/21 05:32 Antibiotics) Physical Exam Vitals: Vital Signs Temp Pulse Resp BP Pulse Ox 01/19/21 08:55 98.6 F 81 18 114/81 97 01/19/21 05:15 74 16 95/72 98 01/19/21 00:35 89 18 93/73 98 01/18/21 22:44 98.6 F 100 18 136/99 98 Intake and Output 01/18/21 01/19/21 01/19/21 22:59 06:59 14:59 Other: Weight 61.689 kg Gen: This is a 60-year-old male awake, alert and oriented 2-3 with periods of confusion, thin built, tremulous HEENT: Head is atraumatic, normocephalic. Pupils equal, round. Sclerae is anicteric. NECK: Supple. No JVD. No lymphadenopathy. No thyromegaly. LUNGS: Clear to auscultation. No wheezes or rhonchi. No intercostal retractions. HEART: Regular rate and rhythm. No murmur. ABDOMEN: Soft. Bowel sounds are present. No masses. No tenderness. EXTREMITIES: No pedal edema. No calf tenderness. Left knee scabbing noted with no surrounding redness or swelling from previous falls NEUROLOGICAL: Patient is awake, alert and oriented x2-3 periods of confusion. Tremulous and unsteady gait. Results CBC & Chem 7: 01/18/21 23:02 01/18/21 23:02 Labs: Abnormal Lab Results - Last 24 Hours (Table) 01/18/21 01/18/21 01/18/21 Range/Units 22:59 23:02 23:02 WBC 3.4 L (3.8-10.6) k/uL RBC 3.69 L (4.30-5.90) m/uL Hct 37.2 L (39.0-53.0) % MCV 100.8 H (80.0-100.0) fL MCH 35.1 H (25.0-35.0) pg Plt Count 45 L (150-450) k/uL Sodium 132 L (137-145) mmol/L Chloride 96 L (98-107) mmol/L BUN 25 H (9-20) mg/dL Glucose 159 H (74-99) mg/dL POC Glucose (mg/dL) 170 H (75-99) mg/dL Magnesium 1.5 L (1.6-2.3) mg/dL Total Bilirubin 1.6 H (0.2-1.3) mg/dL AST 312 H (17-59) U/L ALT 127 H (4-49) U/L Lipase 1268 H (23-300) U/L Urine Protein (Negative) Urine Glucose (UA) (Negative) Urine Ketones (Negative) 01/19/21 Range/Units 05:32 WBC (3.8-10.6) k/uL RBC (4.30-5.90) m/uL Hct (39.0-53.0) % MCV (80.0-100.0) fL MCH (25.0-35.0) pg Plt Count (150-450) k/uL Sodium (137-145) mmol/L Chloride (98-107) mmol/L BUN (9-20) mg/dL Glucose (74-99) mg/dL POC Glucose (mg/dL) (75-99) mg/dL Magnesium (1.6-2.3) mg/dL Total Bilirubin (0.2-1.3) mg/dL AST (17-59) U/L ALT (4-49) U/L Lipase (23-300) U/L Urine Protein Trace H (Negative) Urine Glucose (UA) 2+ H (Negative) Urine Ketones Trace H (Negative) Assessment and Plan Assessment: Acute alcohol withdrawal with acute delirium tremens Mild pancreatitis most likely alcoholic pancreatitis with mildly elevated amylase will continue with IV hydration and repeat a.m. labs Increased ALT/AST secondary to acute alcoholic hepatitis expected to improve with alcohol cessation Diabetes mellitus 2, uncontrolled with hypo-and hyperglycemia Hyponatremia possibly secondary to hypovolemic hyponatremia from poor oral intake and decreased appetite Hypomagnesemia secondary to alcohol abuse and poor oral intake Right hip pain with falls secondary to EtOH use Decreased oral intake History of gout History of hepatitis C which is cured History of closed head injury Alcohol abuse GI prophylaxis: Protonix DVT prophylaxis: Subcutaneous Lovenox Full code Plan: Recommend to continue with CIWA protocol and closely monitor for withdrawals. Patient's magnesium was 1.5 and will replace per protocol. Continue with IV hydration and diet as tolerated. Continue with DVT and GI prophylaxis. Patient is actively showing signs of alcohol withdrawal on exam and patient continues to request to leave although is unsafe at this time and will continue to monitor closely. Recommend Accu-Cheks before meals and at bedtime and will use sliding scale as needed. Will repeat a.m. labs. Will consult social work to arrange outpatient resources for alcohol rehab. Time with Patient: Greater than 30
[2021-01-19] MEDS ORDERED: HALOPERIDOL LACTATE 5 MG/ML 1 ML VIAL IVP STA (15:46)
[2021-01-19] MEDS: SODIUM CHLORIDE 0.9% 1,000 ML IV SCH (15:52)
[2021-01-20 06:26] LABS: ALT 82 U/L (4-49); AST 130 U/L (17-59); African American GFR (CKD) >90 (>60 ml/min/1.73 sqM); Alkaline Phosphatase 70 U/L (38-126); Anion Gap 6 mmol/L; Blood Urea Nitrogen 10 mg/dL (9-20); Calcium 8.4 mg/dL (8.4-10.2); Carbon Dioxide 28 mmol/L (22-30); Chloride 101 mmol/L (98-107); Globulin 2.9 g/dL; Glucose 124 mg/dL (74-99); Non-African American GFR(CKD) >90 (>60 ml/min/1.73 sqM); Phosphorus 3.3 mg/dL (2.5-4.5); Potassium 3.8 mmol/L (3.5-5.1); Sodium 135 mmol/L (137-145); Total Bilirubin 0.8 mg/dL (0.2-1.3); Total Protein 5.9 g/dL (6.3-8.2)
[2021-01-20] MEDS: THIAMINE 100 MG TAB PO SCH ×2 (08:03→17:00)
[2021-01-20] MEDS: PANTOPRAZOLE 40 MG TABLET PO SCH (08:03)
[2021-01-20] MEDS: SODIUM CHLORIDE 0.9% 1,000 ML IV SCH ×2 (08:05→16:24)
[2021-01-20] MEDS: ENOXAPARIN 40 MG/0.4 ML SYRINGE SQ SCH (10:12)
[2021-01-20] MEDS: MULTIVITAMINS, THERA 1 EACH TAB PO SCH (10:12)
[2021-01-20] MEDS: metFORMIN 850 MG TAB PO SCH ×2 (10:12→17:00)
[2021-01-20 11:51] LABS: Basophils # (A) 0.03 X 10*3/uL (0.00-0.10); Eosinophils # (A) 0.06 X 10*3/uL (0.04-0.35); HCT 34.8 % (39.6-50.0); HGB 11.6 g/dL (13.0-17.0); Lymphocytes # (A) 1.08 X 10*3/uL (0.90-5.00); Lymphocytes % (A) 35.6 %; MCH 33.2 pg (27.0-32.0); MCHC 33.3 g/dL (32.0-37.0); MCV 99.7 fL (80.0-97.0); Mean Platelet Volume 10.9 fL (9.5-12.2); Monocytes # (A) 0.38 X 10*3/uL (0.20-1.00); Monocytes % (A) 12.5 %; Neutrophils # (A) 1.47 X 10*3/uL (1.80-7.70); Neutrophils % (A) 48.6 %; Platelet Count 54 X 10*3/uL (140-440); RBC 3.49 X 10*6/uL (4.40-5.60); RDW 12.6 % (11.5-14.5); WBC 3.03 X 10*3/uL (4.50-10.00)
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
[2021-01-20 16:53] LABS: Glucose,Whole Blood 112 mg/dL (75-99)
[2021-01-20] MEDS: HYDROcodone/APAP 5-325MG 1 EACH TAB PO PRN (20:21)
[2021-01-20 20:41] LABS: Glucose,Whole Blood 164 mg/dL (75-99)
[2021-01-21] MEDS: SODIUM CHLORIDE 0.9% 1,000 ML IV SCH ×2 (05:17→08:41)
[2021-01-21 06:58] LABS: Glucose,Whole Blood 109 mg/dL (75-99)
[2021-01-21] MEDS: PANTOPRAZOLE 40 MG TABLET PO SCH (07:35)
[2021-01-21] MEDS: THIAMINE 100 MG TAB PO SCH ×2 (07:35→17:42)
[2021-01-21] MEDS: metFORMIN 850 MG TAB PO SCH ×2 (07:35→17:42)
[2021-01-21] MEDS: HYDROcodone/APAP 5-325MG 1 EACH TAB PO PRN (07:36)
[2021-01-21] MEDS: MULTIVITAMINS, THERA 1 EACH TAB PO SCH (08:30)
[2021-01-21 11:30] LABS: Glucose,Whole Blood 102 mg/dL (75-99)
[2021-01-21] MEDS ORDERED: ALPRAZolam 0.25 MG TAB PO PRN (13:36)
[2021-01-21] MEDS: IBUPROFEN 600 MG TAB PO PRN (14:41)
[2021-01-21] MEDS: LORATADINE 10 MG TAB PO SCH (15:07)
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
[2021-01-21 16:56] LABS: Glucose,Whole Blood 180 mg/dL (75-99)
[2021-01-21 20:08] LABS: Glucose,Whole Blood 193 mg/dL (75-99)
[2021-01-22 01:18] VITALS: TEMP 99
[2021-01-22 06:47] LABS: Glucose,Whole Blood 148 mg/dL (75-99)
[2021-01-22 07:32] VITALS: BP 125/89; PULSE 80; RESP 17
[2021-01-22] MEDS: HYDROcodone/APAP 5-325MG 1 EACH TAB PO PRN (08:46)
[2021-01-22] MEDS: PANTOPRAZOLE 40 MG TABLET PO SCH (08:46)
[2021-01-22] MEDS: metFORMIN 850 MG TAB PO SCH (08:47)
[2021-01-22] MEDS: LORATADINE 10 MG TAB PO SCH (08:47)
[2021-01-22] MEDS: MULTIVITAMINS, THERA 1 EACH TAB PO SCH (08:47)
[2021-01-22] MEDS: THIAMINE 100 MG TAB PO SCH (08:47)
[2021-01-22] MEDS: IBUPROFEN 600 MG TAB PO PRN (10:24)
[2021-01-22 11:27] LABS: Glucose,Whole Blood 150 mg/dL (75-99)
--- NOTE | 2021-01-22 12:44 | P.DS ---
Providers Date of admission: 01/19/21 00:27 Expected date of discharge: 01/22/21 Attending physician: Isac Pierre Primary care physician: Ana Barrow Hospital Course: Final diagnosis Acute alcohol withdrawal with acute delirium tremens Mild pancreatitis most likely alcoholic pancreatitis with mildly elevated amylase, improved Increased ALT/AST secondary to acute alcoholic hepatitis expected to improve with alcohol cessation Thrombocytopenia most likely secondary to alcohol use Diabetes mellitus 2, uncontrolled with hypo-and hyperglycemia Hyponatremia possibly secondary to hypovolemic hyponatremia, improved Hypomagnesemia secondary to alcohol abuse and poor oral intake, improved Weakness and falls Gait dysfunction Right hip pain with falls secondary to EtOH use Decreased oral intake History of gout History of hepatitis C which is cured History of closed head injury Alcohol abuse GI prophylaxis DVT prophylaxis Full code Discharge disposition Patient is being discharged in a stable condition with guarded prognosis to [facility] for continued PT/OT therapy. Patient will follow-up with Dr. Saunders upon discharge. Total time taken is greater than 35 minutes. Hospital course This is a 60-year-old male who presented to the emergency department with weakness and loss of appetite and acute alcohol withdrawal. Patient also states that his blood sugars have been low and has had decreased appetite. Patient adm its to drinking approximately 2-3 24 ounce cans of beer every other day with his most recent intake of beer being last Monday. Patient also admits to having more frequent falls and most recently fell having right-sided hip pain. Patient denies any loss of consciousness or hitting his head during the fall. On exam patient is showing signs of acute alcohol withdrawal and will place CIWA protocol and continue to monitor closely. Patient is requesting to go home and is alert and oriented although having moments of confusion and altered mental status. We'll add Accu-Cheks and continue to monitor blood sugars as well. He was also found to have acute pancreatitis most likely related to alcohol with a lipase of 1268 and will continue with IV hydration. Urinalysis was negative showing 2+ glucose and a trace of ketones. Serum alcohol was less than 10 and COVID-19 was negative. Magnesium was found to be low at 1.5 and will replace and repeat labs. Liver functions are elevated most likely secondary to chronic alcohol use. White blood count is 3.4 with a hemoglobin of 13, sodium is 132 with a potassium of 4.1 and current creatinine is 0.77. Patient had x-ray of the pelvis for recent fall which was negative with no fractures noted with a continued 2 cm exostosis of the right hip. Chest x-ray shows no active cardiopulmonary disease with no infiltrates noted. Given patient's altered mental status patient also had a CT of the brain and cervical spine which showed no fractures with continued degenerative disc narrow spacing from C3 to T1 with no subluxation and no evidence of traumatic c injury to the brain with mild enlargement of the ventricles with no mass effect or midline shift noted and no intracranial hemorrhage noted as well. Patient denies any chest pain, shortness of breath, or palpitations. Patient reports having decreased oral intake and decreased appetite and has blood sugars have been uncontrolled. 01/20/2021 Patient is seen and evaluated in follow-up currently being assisted to the bathroom with an extremely unsteady gait requiring assistance. Will have PT/OT evaluate the patient. Social work also consulted as patient and friend at the bedside state he is homeless. Patient stated yesterday that he lives with his cousin. Magnesium was replaced and repeat mag is 2.0. Sodium improved at 135 with a potassium of 3.8 and current creatinine is 0.66. Platelets decreased at 54 and will discontinue Lovenox and repeat labs and monitor closely. Continue with CIWA protocol and monitor closely for any signs of withdrawal. Patient has not required Ativan since yesterday. Patient takes metformin and will resume and continue with Accu-Cheks. 01/21/2021 Patient is seen in follow-up this morning continues to be weak and has been evaluated by physical therapy and working with them daily and continues to be weak recommending subacute rehab. Social work consulted and discussed with the patient along with social work about possible placement for some strength and mobility and referrals have been sent and awaiting for accepting facility. Patient continues to have some mild anxiety with no active withdrawals noted and will use CIWA as needed and have added low-dose Xanax as needed as well. Encouraged increased activity as tolerated and will await possible ECF placement. 01/22/2021 Patient is seen in follow-up currently sitting up in the chair and continues to require assistance with physical therapy. Patient is agreeable to ECF and has been accepted at [facility] on the [address] and will go there for continued PT/OT therapy for strengthening mobility. Recommend continue monitoring Accu-Cheks before meals and at bedtime and continue with consistent carb diet and patient is on metformin twice daily. Instructed the patient to refrain from alcohol and follow-up outpatient with [facility] along with primary care provider upon discharge. Currently no reports of chest pain, shortness of breath, or palpitations. Patient is afebrile. No reports of nausea or vomiting and patient is tolerating diet. Patient will be going to [facility] on the [place] today. On exam vital signs are stable. Cardio S1, S2 are muffled. Respiratory system shows diminished breath sounds at the bases with no wheezing or rhonchi noted. Abdomen is soft and nontender. Nervous system shows diffuse weakness. Please refer to medication reconciliation sheet for a list of medications. Patient Condition at Discharge: Fair Plan - Discharge Summary Discharge Rx Participant: Yes New Discharge Prescriptions: New Loratadine [Claritin] 10 mg PO DAILY tab Multivitamins, Thera [Multivitamin (formulary)] 1 each PO DAILY tab ALPRAZolam [Xanax] 0.25 mg PO BID PRN #4 tab PRN Reason: Anxiety Pantoprazole [Protonix] 40 mg PO AC-BRKFST tab Thiamine [Vitamin B-1] 100 mg PO BID-W/MEALS tab Continue metFORMIN HCL [Glucophage] 850 mg PO AC-BID Ibuprofen [Motrin] 600 mg PO Q8HR PRN #30 tab PRN Reason: Pain HYDROcodone/APAP 5-325MG [Trinity 5-325] 1 tab PO DAILY PRN #6 tab PRN Reason: Pain Cyclobenzaprine [Flexeril] 10 mg PO TID PRN #15 tab PRN Reason: Muscle Spasm Discharge Medication List metFORMIN HCL [Glucophage] 850 mg PO AC-BID 09/07/19 [History] Cyclobenzaprine [Flexeril] 10 mg PO TID PRN #15 tab 01/15/21 [Rx] Ibuprofen [Motrin] 600 mg PO Q8HR PRN #30 tab 01/15/21 [Rx] ALPRAZolam [Xanax] 0.25 mg PO BID PRN #4 tab 01/22/21 [Rx] HYDROcodone/APAP 5-325MG [Trinity 5-325] 1 tab PO DAILY PRN #6 tab 01/22/21 [Rx] Loratadine [Claritin] 10 mg PO DAILY tab 01/22/21 [Rx] Multivitamins, Thera [Multivitamin (formulary)] 1 each PO DAILY tab 01/22/21 [Rx] Pantoprazole [Protonix] 40 mg PO AC-BRKFST tab 01/22/21 [Rx] Thiamine [Vitamin B-1] 100 mg PO BID-W/MEALS tab 01/22/21 [Rx] Follow up Appointment(s)/Referral(s): Homer Saunders MD [STAFF PHYSICIAN] - 1-2 Days Pushpa Perez MD [Primary Care Provider] - 1 Week Activity/Diet/Wound Care/Special Instructions: Patient is going to [facility] for rehab Activity as tolerated Recommend continue with Accu-Cheks before meals and at bedtime Continue with consistent carb heart healthy diet Follow-up with primary care provider on discharge Continue to avoid alcohol use Discharge Disposition: TRANSFER TO SNF/ECF
== END 2021-01-22 17:02 | DRG 896 ==
LOC: EC 22:42 → 4SSUR 01-19 00:27
PROVIDERS: ADMIT Hospitalist; ATTEND Hospitalist
DX: F10.231 Alcohol dependence with withdrawal delirium (principal); K85.20 Alcohol induced acute pancreatitis without necrosis or infection; D69.59 Other secondary thrombocytopenia; E11.65 Type 2 diabetes mellitus with hyperglycemia; E83.42 Hypomagnesemia; E86.0 Dehydration; F41.9 Anxiety disorder, unspecified; S70.01XA Contusion of right hip, initial encounter; V18.4XXA Pedal cycle driver injured in noncollision transport accident in traffic accident, initial encounter; Y93.55 Activity, bike riding; Z20.822 Contact with and (suspected) exposure to COVID-19; Z59.0 Homelessness; Z79.84 Long term (current) use of oral hypoglycemic drugs; K70.10 Alcoholic hepatitis without ascites; R26.9 Unspecified abnormalities of gait and mobility
CPT/HCPCS: 36415; 70450; 71045; 72125; 72170; 80053; 80320; 81003; 83690; 83735; 84100; 85025; 87635; 93005; 96361; 96374; 96375; 99285

== ENCOUNTER 2021-03-02 18:10 | Inpatient (IN) | payer OTHER ==
[2021-03-02 18:44] LABS: Glucose,Whole Blood 284 mg/dL (75-99)
[2021-03-02] MEDS ORDERED: SODIUM CHLORIDE 0.9% 1,000 ML IV STA (18:52)
[2021-03-02] MEDS: ONDANSETRON 4 MG/2 ML VIAL IVP STA ×2 (19:02→19:31)
[2021-03-02 19:25] LABS: Basophils % (A) 0 %; Eosinophils % (A) 1 %; HCT 35.6 % (39.0-53.0); HGB 12.1 gm/dL (13.0-17.5); Lymphocytes # (A) 0.5 k/uL (1.0-4.8); Lymphocytes % (A) 8 %; MCH 33.9 pg (25.0-35.0); MCHC 33.9 g/dL (31.0-37.0); MCV 100.2 fL (80.0-100.0); Monocytes # (A) 0.2 k/uL (0-1.0); Monocytes % (A) 3 %; Neutrophils # (A) 5.6 k/uL (1.3-7.7); Neutrophils % (A) 88 %; RBC 3.56 m/uL (4.30-5.90); RDW 12.5 % (11.5-15.5); WBC 6.4 k/uL (3.8-10.6)
[2021-03-02 19:27] LABS: Platelet Count 11 k/uL (150-450)
[2021-03-02] MEDS ORDERED: ONDANSETRON 4 MG/2 ML VIAL IVP STA ×2 (19:27→20:31)
[2021-03-02 19:28] LABS: AST 174 U/L (17-59); African American GFR (CKD) >90 (>60 ml/min/1.73 sqM); Albumin 4.7 g/dL (3.5-5.0); Alcohol 41 mg/dL; Alkaline Phosphatase 107 U/L (38-126); Amylase 60 U/L (30-110); Anion Gap 21 mmol/L; Blood Urea Nitrogen 12 mg/dL (9-20); Calcium 9.8 mg/dL (8.4-10.2); Carbon Dioxide 17 mmol/L (22-30); Chloride 100 mmol/L (98-107); Glucose 266 mg/dL (74-99); Lipase 230 U/L (23-300); Non-African American GFR(CKD) >90 (>60 ml/min/1.73 sqM); Potassium 3.7 mmol/L (3.5-5.1); Sodium 138 mmol/L (137-145); Total Bilirubin 1.9 mg/dL (0.2-1.3); Total Protein 7.9 g/dL (6.3-8.2)
[2021-03-02 19:35] LABS: ALT 83 U/L (4-49)
--- NOTE | 2021-03-02 20:33 | ED ---
Nausea/Vomiting/Diarrhea HPI - General Chief complaint: Nausea/Vomiting/Diarrhea Stated complaint: near syncope Time Seen by Provider: 03/02/21 18:52 Source: patient Mode of arrival: wheelchair Limitations: no limitations - History of Present Illness Initial comments: Patient presents with weakness, nausea, vomiting. He has a history of alcohol abuse. He has crampiness all over. He has no chest pain. He has no back pain. He has no fevers or chills. He had a syncopal episode as well. Nothing makes his symptoms better or worse. He doesn't recall what he was doing when this happened. He is not sure if he sustained any injuries. He has no swelling in the arms or legs. He has no scrapes or lacerations. - Related Data Home Medications Medication Instructions Recorded Confirmed metFORMIN HCL [Glucophage] 850 mg PO AC-BID 09/07/19 01/18/21 Previous Rx's Medication Instructions Recorded Cyclobenzaprine [Flexeril] 10 mg PO TID PRN #15 tab 01/15/21 Ibuprofen [Motrin] 600 mg PO Q8HR PRN #30 tab 01/15/21 ALPRAZolam [Xanax] 0.25 mg PO BID PRN #4 tab 01/22/21 HYDROcodone/APAP 5-325MG [[place] 1 tab PO DAILY PRN #6 tab 01/22/21 5-325] Loratadine [Claritin] 10 mg PO DAILY tab 01/22/21 Magnesium Oxide 400 mg PO AC-BRKFST #30 tablet 01/22/21 Multivitamins, Thera [Multivitamin 1 each PO DAILY tab 01/22/21 (formulary)] Pantoprazole [Protonix] 40 mg PO AC-BRKFST tab 01/22/21 Thiamine [Vitamin B-1] 100 mg PO BID-W/MEALS tab 01/22/21 Allergies Allergy/AdvReac Type Severity Reaction Status Date / Time Sulfa (Sulfonamide Allergy Rash/Hives Verified 03/02/21 18:21 Antibiotics) Review of Systems ROS Statement: Those systems with pertinent positive or pertinent negative responses have been documented in the HPI. ROS Other: All systems not noted in ROS Statement are negative. Past Medical History Past Medical History: Diabetes Mellitus Additional Past Medical History / Comment(s): gout, hep c (cured), ex ETOH, CHI History of Any Multi-Drug Resistant Organisms: None Reported Past Surgical History: Orthopedic Surgery Additional Past Surgical History / Comment(s): celsa knee Past Psychological History: No Psychological Hx Reported Smoking Status: Never smoker Past Alcohol Use History: Daily Past Drug Use History: None Reported General Exam Limitations: no limitations General appearance: alert, in no apparent distress Head exam: Present: atraumatic, normocephalic, normal inspection Eye exam: Present: normal appearance, PERRL, EOMI. Absent: scleral icterus, conjunctival injection, periorbital swelling ENT exam: Present: normal exam, mucous membranes moist Neck exam: Present: normal inspection. Absent: tenderness, meningismus, lymphadenopathy Respiratory exam: Present: normal lung sounds bilaterally. Absent: respiratory distress, wheezes, rales, rhonchi, stridor Cardiovascular Exam: Present: regular rate, normal rhythm, normal heart sounds. Absent: systolic murmur, diastolic murmur, rubs, gallop, clicks GI/Abdominal exam: Present: soft, normal bowel sounds. Absent: distended, tenderness, guarding, rebound, rigid Extremities exam: Present: normal inspection, full ROM, normal capillary refill. Absent: tenderness, pedal edema, joint swelling, calf tenderness Back exam: Present: normal inspection Neurological exam: Present: alert, oriented X3, CN II-XII intact Psychiatric exam: Present: normal affect, normal mood Skin exam: Present: warm, dry, intact, normal color. Absent: rash Course Vital Signs 03/02/21 03/02/21 18:18 19:35 Temperature 97.9 F Pulse Rate 108 H 92 Respiratory 19 18 Rate Blood Pressure 118/73 94/62 O2 Sat by Pulse 98 100 Oximetry Medical Decision Making - Medical Decision Making Patient presents with syncope, intractable nausea and vomiting. He was given fluids and multiple doses of nausea medication. He is not feeling any better. He will be admitted to the hospital. - Lab Data Result diagrams: 03/02/21 18:57 03/02/21 18:57 Lab Results 03/02/21 03/02/21 03/02/21 Range/Units 18:41 18:57 18:57 WBC 6.4 (3.8-10.6) k/uL RBC 3.56 L (4.30-5.90) m/uL Hgb 12.1 L (13.0-17.5) gm/dL Hct 35.6 L (39.0-53.0) % MCV 100.2 H (80.0-100.0) fL MCH 33.9 (25.0-35.0) pg MCHC 33.9 (31.0-37.0) g/dL RDW 12.5 (11.5-15.5) % Plt Count 11 L* D (150-450) k/uL MPV 10.0 Neutrophils % 88 % Lymphocytes % 8 % Monocytes % 3 % Eosinophils % 1 % Basophils % 0 % Neutrophils # 5.6 (1.3-7.7) k/uL Lymphocytes # 0.5 L (1.0-4.8) k/uL Monocytes # 0.2 (0-1.0) k/uL Eosinophils # 0.0 (0-0.7) k/uL Basophils # 0.0 (0-0.2) k/uL Manual Slide Review Performed Sodium 138 (137-145) mmol/L Potassium 3.7 (3.5-5.1) mmol/L Chloride 100 (98-107) mmol/L Carbon Dioxide 17 L (22-30) mmol/L Anion Gap 21 mmol/L BUN 12 (9-20) mg/dL Creatinine 0.69 (0.66-1.25) mg/dL Est GFR (CKD-EPI)AfAm >90 (>60 ml/min/1.73 sqM) Est GFR (CKD-EPI)NonAf >90 (>60 ml/min/1.73 sqM) Glucose 266 H (74-99) mg/dL POC Glucose (mg/dL) 284 H (75-99) mg/dL POC Glu Scrum Coach ID Ruby Urena Calcium 9.8 (8.4-10.2) mg/dL Total Bilirubin 1.9 H (0.2-1.3) mg/dL AST 174 H (17-59) U/L ALT 83 H (4-49) U/L Alkaline Phosphatase 107 (38-126) U/L Total Protein 7.9 (6.3-8.2) g/dL Albumin 4.7 (3.5-5.0) g/dL Amylase 60 (30-110) U/L Lipase 230 (23-300) U/L Serum Alcohol 41 mg/dL 03/02/21 20:33 Twelve-lead EKG shows ventricular 103 bpm, normal IA interval and QRS complexes, no ST elevation or depression, interpreted by me as sinus tachycardia. Disposition Clinical Impression: Nausea and vomiting Disposition: ADMITTED IP TO THIS HOSP Condition: Fair Referrals: Pushpa Perez MD [Primary Care Provider] - 1-2 days
[2021-03-02] MEDS ORDERED: NALOXONE 0.4 MG/ML 1 ML VIAL IV PRN (20:35)
--- NOTE | 2021-03-02 21:20 | CT ---
EXAMINATION TYPE: CT brain narinderine wo con DATE OF EXAM: 03/02/2021 COMPARISON: 01/18/2021 HISTORY: syncope, nausea, vomiting CT DLP: 1290.1 mGycm Automated exposure control for dose reduction was used. Images obtained of the brain and cervical spine without contrast. Ventricles have normal size. There is no mass effect nor midline shift. There is no sign of intracran ial hemorrhage. Calvarium is intact. There is normal aeration of the mastoid sinuses. The cervical vertebra show mild straightening. There is degenerative disc space narrowing from C3 to T1. There is spurring of the endplates. There is no compression fracture. Facet joints are intact. Pr evertebral soft tissues are intact. IMPRESSION: Negative CT scan of the brain. Multilevel cervical spondylotic changes. No fracture.
[2021-03-02 21:27] LABS: Glucose,Whole Blood 168 mg/dL (75-99)
[2021-03-02 21:41] LABS: Appearance,Urine Clear (Clear); Bilirubin,Urine Negative (Negative); Blood,Urine Negative (Negative); Color,Urine Yellow; Glucose,Urine (UA) 4+ (Negative); Ketones,Urine Trace (Negative); Leukocyte Esterase,Urine Negative (Negative); Nitrite,Urine Negative (Negative); PH, Urine 5.5 (5.0-8.0); Protein,Urine Negative (Negative)
[2021-03-03 00:06] LABS: Basophils % (A) 0 %; Eosinophils % (A) 1 %; HCT 38.8 % (39.0-53.0); HGB 12.6 gm/dL (13.0-17.5); Lymphocytes # (A) 0.3 k/uL (1.0-4.8); Lymphocytes % (A) 5 %; MCH 33.3 pg (25.0-35.0); MCHC 32.4 g/dL (31.0-37.0); MCV 102.7 fL (80.0-100.0); Mean Platelet Volume 9.4; Monocytes # (A) 0.3 k/uL (0-1.0); Monocytes % (A) 6 %; Neutrophils # (A) 5.3 k/uL (1.3-7.7); Neutrophils % (A) 88 %; RBC 3.78 m/uL (4.30-5.90); RDW 12.1 % (11.5-15.5); WBC 6.1 k/uL (3.8-10.6)
[2021-03-03 00:10] LABS: Platelet Count 9 k/uL (150-450)
[2021-03-03] MEDS ORDERED: PANTOPRAZOLE 40 MG TABLET PO SCH (07:30)
[2021-03-03] MEDS: metFORMIN 850 MG TAB PO SCH ×2 (08:15→15:50)
[2021-03-03] MEDS: ALPRAZolam 0.25 MG TAB PO PRN (08:15)
[2021-03-03] MEDS: LORATADINE 10 MG TAB PO SCH (08:15)
[2021-03-03] MEDS: MULTIVITAMINS, THERA 1 EACH TAB PO SCH (08:16)
[2021-03-03] MEDS: THIAMINE 100 MG TAB PO SCH ×2 (08:16→15:51)
[2021-03-03] MEDS: MAGNESIUM OXIDE 400 MG TAB PO SCH (08:16)
[2021-03-03 09:50] LABS: Basophils % (A) 0 %; Eosinophils % (A) 0 %; HCT 38.1 % (39.0-53.0); HGB 12.5 gm/dL (13.0-17.5); Lymphocytes # (A) 0.8 k/uL (1.0-4.8); Lymphocytes % (A) 13 %; MCHC 32.9 g/dL (31.0-37.0); MCV 100.4 fL (80.0-100.0); Mean Platelet Volume 9.8; Monocytes # (A) 0.3 k/uL (0-1.0); Monocytes % (A) 5 %; Neutrophils # (A) 4.6 k/uL (1.3-7.7); Neutrophils % (A) 80 %; RDW 12.1 % (11.5-15.5); WBC 5.8 k/uL (3.8-10.6)
[2021-03-03 10:01] LABS: African American GFR (CKD) >90 (>60 ml/min/1.73 sqM); Albumin 3.5 g/dL (3.5-5.0); Alkaline Phosphatase 87 U/L (38-126); Anion Gap 7 mmol/L; Blood Urea Nitrogen 16 mg/dL (9-20); Calcium 9.4 mg/dL (8.4-10.2); Carbon Dioxide 25 mmol/L (22-30); Chloride 102 mmol/L (98-107); Glucose 252 mg/dL (74-99); Non-African American GFR(CKD) >90 (>60 ml/min/1.73 sqM); Platelet Count 12 k/uL (150-450); Potassium 4.7 mmol/L (3.5-5.1); Sodium 134 mmol/L (137-145); Total Bilirubin 2.8 mg/dL (0.2-1.3); Total Protein 6.3 g/dL (6.3-8.2)
[2021-03-03 10:23] LABS: ALT 874 U/L (4-49)
[2021-03-03 10:25] LABS: AST 1717 U/L (17-59)
[2021-03-03] MEDS ORDERED: HYDROmorphone 1 MG/ML 1 ML SYRINGE ONE (10:27)
[2021-03-03 11:30] LABS: Glucose,Whole Blood 282 mg/dL (75-99)
[2021-03-03 12:05] LABS: INR 1.8 (<1.2); Prothrombin Time 18.3 sec (9.0-12.0)
[2021-03-03] MEDS ORDERED: IOPAMIDOL CONTRAST (ORAL USE) VIAL PO PRN (12:05)
--- NOTE | 2021-03-03 14:20 | P.HPIM ---
History of Present Illness H&P Date: 03/03/21 This is a pleasant 60-year-old male who presents to the hospital for complaints of nausea and vomiting following an episode of eating at work he did experience some dizziness and had to sit down. Patient also said that he was diaphoretic. Denies any fever or chills at home. He denies any diarrhea. He denies any blood in the stool. Denies any chest pain cough or shortness of breath. Patient is also experiencing some left lower quadrant abdominal cramping pain and tenderness as well as some tenderness on palpation to the left upper quadrant. Patient is a history of diabetes type 2, acid reflux, gout, arthritis, hep C, and chronic alcohol abuse. He does state that he was a heavy drinker in the past however as of recently made only drinks a beer 1 or 2 times per week. He had a had cervical spine CT completed in the which showed a multilevel spondylitic changes. Patient states that he was never formally treated for his hepatitis C was told when he went to donate plasma there was some residuals in his blood. We will check a hep C viral load. Labs on admission included white blood cell count 6.1, hemoglobin 12.6 and platelet count of 9, repeat was 12. In addition patient's PT/INR was elevated. INR today is 1.8. Sodium level is 134, bilirubin 2.8, AST initially was 174 is now 1717. ALT was 83 and now is a 874. Troponin was negative, COVID PCR was nondetectable. Urinalysis showed glucose and trace ketones. There is no signs of any petechia, patient denies any blood in the urine and blood in the stool. Vital signs include a temp of 98, heart rate 70 sinus rhythm, blood pressure 120/70 and 99% room air. REVIEW OF SYSTEMS: CONSTITUTIONAL: No fever, no malaise, no fatigue. HEENT: No recent visual problems or hearing problems. Denied any sore throat. CARDIOVASCULAR: No chest pain, orthopnea, PND, no palpitations, no syncope. PULMONARY: No shortness of breath, no cough, no hemoptysis. GASTROINTESTINAL: No diarrhea, no nausea, reports 1 episode of nausea and vomiting, left lower quadrant abdominal pain NEUROLOGICAL: No headaches, no weakness, no numbness. HEMATOLOGICAL: Denies any bleeding or petechiae. GENITOURINARY: Denies any burning micturition, frequency, or urgency. MUSCULOSKELETAL/RHEUMATOLOGICAL: Denies any joint pain, swelling. Reports arthritic pain to his left foot ENDOCRINE: Denies any polyuria or polydipsia. The rest of the 14-point review of systems is negative. PHYSICAL EXAMINATION: GENERAL: The patient is alert and oriented x3, not in any acute distress. Well developed, well nourished. HEENT: Pupils are round and equally reacting to light. EOMI. No scleral icterus. No conjunctival pallor. Normocephalic, atraumatic. No pharyngeal erythema. No thyromegaly. CARDIOVASCULAR: S1 and S2 present. No murmurs, rubs, or gallops. PULMONARY: Chest is clear to auscultation, no wheezing or crackles. ABDOMEN: Soft, nondistended, normoactive bowel sounds. There is tenderness in the left lower quadrant as well as left upper quadrant patient did demonstrate some guarding to the left upper quadrant draining light manual palpation. MUSCULOSKELETAL: There is arthritic changes to his left great toe EXTREMITIES: No cyanosis, clubbing, or pedal edema. NEUROLOGICAL: Gross neurological examination did not reveal any focal deficits. SKIN: No rashes. Assessment and plan Thrombocytopenia of unknown etiology, follow-up of abdominal pelvis CT, workup in progress, consult hematology Elevated liver enzymes most likely related to alcoholic liver disease, monitor trend, ultrasound liver ordered Presyncope most likely related to episode of nausea vomiting with possible vasovagal response, check orthos Chronic alcohol abuse Pseudohyponatremia mostly related to hyperglycemia, monitor Diabetes mellitus type 2 with hyperglycemia, add novolog History of gout History of hepatitis C, check hepatitis panel and hep c viral load history of GERD, GI prophylaxis we will add IV Protonix DVT prophylaxis deferred due to low platelet count Past Medical History Past Medical History: Diabetes Mellitus Additional Past Medical History / Comment(s): gout, hep c (cured), ex ETOH, CHI History of Any Multi-Drug Resistant Organisms: None Reported Past Surgical History: Orthopedic Surgery Additional Past Surgical History / Comment(s): celsa knee Past Anesthesia/Blood Transfusion Reactions: No Reported Reaction Past Psychological History: No Psychological Hx Reported Smoking Status: Never smoker Past Alcohol Use History: Daily Additional Past Alcohol Use History / Comment(s): Pt states that he only drinks "a couple beers every day" Past Drug Use History: None Reported Medications and Allergies Home Medications Medication Instructions Recorded Confirmed Type metFORMIN HCL [Glucophage] 850 mg PO AC-BID 09/07/19 03/02/21 History Cyclobenzaprine [Flexeril] 10 mg PO TID PRN #15 tab 01/15/21 03/02/21 Rx Ibuprofen [Motrin] 600 mg PO Q8HR PRN #30 tab 01/15/21 03/02/21 Rx HYDROcodone/APAP 5-325MG [[place] 1 tab PO DAILY PRN #6 tab 01/22/21 03/02/21 Rx 5-325] Diclofenac Sodium Gel [Voltaren 1 applic TOPICAL BID PRN 03/02/21 03/02/21 History Gel] Methyl Salicylate/Menth/Camph 1 patch TOPICAL DAILY PRN 03/02/21 03/02/21 History [Salonpas 3.1%-6.0%-10.0% Patch] Omeprazole 20 mg PO DAILY 03/02/21 03/02/21 History Allergies Allergy/AdvReac Type Severity Reaction Status Date / Time Sulfa (Sulfonamide Allergy Rash/Hives Verified 03/02/21 18:21 Antibiotics) Physical Exam Vitals: Vital Signs Temp Pulse Pulse Resp BP BP Pulse Ox 03/03/21 07:00 98 F 78 18 123/78 99 03/03/21 06:08 98.5 F 89 16 119/68 100 03/03/21 05:00 72 16 99 03/03/21 04:00 82 14 111/91 99 03/03/21 03:00 84 13 110/72 98 03/03/21 02:00 80 28 H 122/87 99 03/03/21 01:00 76 21 109/84 100 03/03/21 00:00 94 14 136/59 100 03/02/21 23:00 100 13 110/80 99 03/02/21 22:00 101 H 14 117/76 99 03/02/21 21:39 116 H 18 117/65 100 03/02/21 21:01 136/91 03/02/21 20:00 76 10 L 94/62 100 03/02/21 19:35 92 18 94/62 100 03/02/21 19:00 98 21 118/83 100 03/02/21 18:55 98 19 99 03/02/21 18:18 97.9 F 108 H 19 118/73 98 Intake and Output 03/02/21 03/03/21 03/03/21 22:59 06:59 14:59 Other: Weight 65.771 kg 65.771 kg Results CBC & Chem 7: 03/03/21 09:36 03/03/21 09:36 Labs: Abnormal Lab Results - Last 24 Hours (Table) 03/02/21 03/02/21 03/02/21 Range/Units 18:41 18:57 18:57 RBC 3.56 L (4.30-5.90) m/uL Hgb 12.1 L (13.0-17.5) gm/dL Hct 35.6 L (39.0-53.0) % MCV 100.2 H (80.0-100.0) fL Plt Count 11 L* D (150-450) k/uL Lymphocytes # 0.5 L (1.0-4.8) k/uL Sodium (137-145) mmol/L Carbon Dioxide (22-30) mmol/L Creatinine (0.66-1.25) mg/dL Glucose (74-99) mg/dL POC Glucose (mg/dL) 284 H (75-99) mg/dL Total Bilirubin (0.2-1.3) mg/dL AST (17-59) U/L ALT (4-49) U/L Urine Glucose (UA) 4+ H (Negative) Urine Ketones Trace H (Negative) 03/02/21 03/02/21 03/02/21 Range/Units 18:57 21:26 23:44 RBC 3.78 L (4.30-5.90) m/uL Hgb 12.6 L (13.0-17.5) gm/dL Hct 38.8 L (39.0-53.0) % MCV 102.7 H (80.0-100.0) fL Plt Count 9 L* (150-450) k/uL Lymphocytes # 0.3 L (1.0-4.8) k/uL Sodium (137-145) mmol/L Carbon Dioxide 17 L (22-30) mmol/L Creatinine (0.66-1.25) mg/dL Glucose 266 H (74-99) mg/dL POC Glucose (mg/dL) 168 H (75-99) mg/dL Total Bilirubin 1.9 H (0.2-1.3) mg/dL AST 174 H (17-59) U/L ALT 83 H (4-49) U/L Urine Glucose (UA) (Negative) Urine Ketones (Negative) 03/03/21 03/03/21 Range/Units 09:36 09:36 RBC 3.80 L (4.30-5.90) m/uL Hgb 12.5 L (13.0-17.5) gm/dL Hct 38.1 L (39.0-53.0) % MCV 100.4 H (80.0-100.0) fL Plt Count 12 L* (150-450) k/uL Lymphocytes # 0.8 L (1.0-4.8) k/uL Sodium 134 L (137-145) mmol/L Carbon Dioxide (22-30) mmol/L Creatinine 0.60 L (0.66-1.25) mg/dL Glucose 252 H (74-99) mg/dL POC Glucose (mg/dL) (75-99) mg/dL Total Bilirubin 2.8 H (0.2-1.3) mg/dL AST 1717 H (17-59) U/L ALT 874 H (4-49) U/L Urine Glucose (UA) (Negative) Urine Ketones (Negative) Assessment and Plan Time with Patient: Greater than 30
[2021-03-03] MEDS ORDERED: PHYTONADIONE 5 MG in SODIUM CHLORIDE 0.9% 50 ML IVPB STA (14:39)
--- NOTE | 2021-03-03 14:41 | US ---
EXAMINATION TYPE: US liver DATE OF EXAM: 03/03/2021 COMPARISON: NONE CLINICAL HISTORY: elevated enzymes. elevated liver enzymes. nausea EXAM MEASUREMENTS: Liver Length: 17.8 cm Gallbladder Wall: 0.6 cm CBD: 0.6 cm Right Kidney: 12.0 x 4.8 x 4.7 cm Pancreas: heterogeneous Liver: enlarged, attenuating, small amount of free fluid adjacent to liver Gallbladder: thickened, edematous wall Evidence for sonographic Casas's sign: no CBD: upper limits of normal Right Kidney: no evidence of hydronephrosis IMPRESSION: 1. Hepatomegaly with underlying hepatic steatosis. 2. Gallbladder wall is thickened and edematous with pericholecystic fluid noted. Correlate for acalcu jyoti cholecystitis.
--- NOTE | 2021-03-03 15:34 | CT ---
EXAMINATION TYPE: CT abdomen w con DATE OF EXAM: 03/03/2021 COMPARISON: None HISTORY: LUQ pain CT DLP: 739.2 mGycm CONTRAST: CT scan of the abdomen is performed with Oral Contrast and with IV Contrast, patient injected with 10 0 mL of Isovue 300. FINDINGS: LUNG BASES-: No visible nodule. No infiltrate. Small right pleural effusion noted. LIVER/GB: No calcified gallstones. Hepatomegaly with underlying hepatic steatosis. No space occupy ing hepatic lesion. Biliary tree is of normal caliber. There is fluid along the liver edge as well as about the gallbladder fossa PANCREAS: Small amount of fluid noted adjacent to the pancreatic head. Pancreatic head is of mildly d ecreased attenuation. Changes of pancreatitis would be difficult to exclude. Correlate with amylase a nd lipase. SPLEEN: No splenic enlargement. No lesion seen. ADRENALS: No nodule. No thickening. KIDNEYS/BLADDER: No hydronephrosis. No nephrolithiasis. No distinct renal mass. Urinary bladder g rossly unremarkable. BOWEL: Normal appendix. Normal bowel caliber. No inflammation. GENITAL ORGANS: No gross abnormality. LYMPH NODES: No greater than 1cm abdominal or pelvic lymph nodes are appreciated. AORTA: No significant abnormality. OSSEOUS STRUCTURES: No significant abnormality is seen. OTHER: No significant additional abnormality is seen. IMPRESSION: 1. Small amount of fluid noted adjacent to the pancreatic head. Pancreatic head is of mildly decrease d attenuation. Changes of pancreatitis would be difficult to exclude. Correlate with amylase and lipa se. 2. Hepatomegaly with underlying hepatic steatosis. 3. Ascites mild in degree. Small right basilar pleural effusion.
[2021-03-03] MEDS: INSULIN ASPART (NovoLOG) 100 UNIT/ML VIAL SQ SCH ×2 (15:49→20:15)
[2021-03-03 15:50] LABS: Glucose,Whole Blood 105 mg/dL (75-99)
[2021-03-03] MEDS: traMADol 50 MG TAB PO PRN (15:51)
[2021-03-03] MEDS ORDERED: SODIUM CHLORIDE 0.9% 1,000 ML IV ONE (15:52)
[2021-03-03 17:03] LABS: Amylase 69 U/L (30-110); Lipase 316 U/L (23-300)
[2021-03-03] MEDS: SODIUM CHLORIDE 0.9% 1,000 ML IV SCH (18:23)
[2021-03-03 19:58] LABS: Glucose,Whole Blood 230 mg/dL (75-99)
--- NOTE | 2021-03-03 22:01 | P.CONS ---
History of Present Illness - Reason for Consult Consult date: 03/03/21 thrombocytopenia Requesting physician: Shirley Patiño - Chief Complaint N,V,D, near syncopy - History of Present Illness Mr. Carrera is a 60 yo male we have been asked to see for severe thrombocytopenia, pt follows with a PCP for his meds but denies recent lab draws or knowledge of low platelets. Pt states that prior to admission he was at home and had 2 episodes of severe sweats, shaking associated with N,V, and abd pain. He denies any precipitating factors, he did not check his temp. He feels better since admit. He has a histroy of Hep C, denies any other form of liver disease. No bleeding, unusual bruising, rash or petechiae. He has had some instances of b leeding hemorrhoids but nothing recent or ever severe, denies recent illness. He state a colonoscopy years ago. He sometimes drinks-had alcohol level of 41 in admit. Review of Systems 10 point ROS is neg except as stated in HPI Past Medical History Past Medical History: Diabetes Mellitus Additional Past Medical History / Comment(s): gout, hep c (cured), ex ETOH, CHI History of Any Multi-Drug Resistant Organisms: None Reported Past Surgical History: Orthopedic Surgery Additional Past Surgical History / Comment(s): celsa knee Past Anesthesia/Blood Transfusion Reactions: No Reported Reaction Past Psychological History: No Psychological Hx Reported Smoking Status: Never smoker Past Alcohol Use History: Daily Additional Past Alcohol Use History / Comment(s): Pt states that he only drinks "a couple beers every day" Past Drug Use History: None Reported Medications and Allergies Home Medications Medication Instructions Recorded Confirmed Type metFORMIN HCL [Glucophage] 850 mg PO AC-BID 09/07/19 03/02/21 History Cyclobenzaprine [Flexeril] 10 mg PO TID PRN #15 tab 01/15/21 03/02/21 Rx Ibuprofen [Motrin] 600 mg PO Q8HR PRN #30 tab 01/15/21 03/02/21 Rx HYDROcodone/APAP 5-325MG [Pacific 1 tab PO DAILY PRN #6 tab 01/22/21 03/02/21 Rx 5-325] Diclofenac Sodium Gel [Voltaren 1 applic TOPICAL BID PRN 03/02/21 03/02/21 History Gel] Methyl Salicylate/Menth/Camph 1 patch TOPICAL DAILY PRN 03/02/21 03/02/21 Hi story [Salonpas 3.1%-6.0%-10.0% Patch] Omeprazole 20 mg PO DAILY 03/02/21 03/02/21 History Allergies Allergy/AdvReac Type Severity Reaction Status Date / Time Sulfa (Sulfonamide Allergy Rash/Hives Verified 03/02/21 18:21 Antibiotics) Physical Exam Vitals: Vital Signs Temp Pulse Pulse Resp BP BP Pulse Ox 03/03/21 15:11 98.1 F 81 20 128/79 98 03/03/21 07:00 98 F 78 18 123/78 99 03/03/21 06:08 98.5 F 89 16 119/68 100 03/03/21 05:00 72 16 99 03/03/21 04:00 82 14 111/91 99 03/03/21 03:00 84 13 110/72 98 03/03/21 02:00 80 28 H 122/87 99 03/03/21 01:00 76 21 109/84 100 03/03/21 00:00 94 14 136/59 100 03/02/21 23:00 100 13 110/80 99 03/02/21 22:00 101 H 14 117/76 99 03/02/21 21:39 116 H 18 117/65 100 03/02/21 21:01 136/91 03/02/21 20:00 76 10 L 94/62 100 03/02/21 19:35 92 18 94/62 100 03/02/21 19:00 98 21 118/83 100 03/02/21 18:55 98 19 99 03/02/21 18:18 97.9 F 108 H 19 118/73 98 Intake and Output 03/03/21 03/03/21 03/03/21 06:59 14:59 22:59 Other: # Voids 3 Weight 65.771 kg - Constitutional General appearance: average body habitus, cooperative, no acute distress - EENT Eyes: EOMI, poor dentition, scleral icterus ENT: hearing grossly normal - Neck left clavicle is elevated Neck: no lymphadenopathy - Respiratory Respiratory: bilateral: CTA - Cardiovascular Rhythm: regular Heart sounds: normal: S1, S2 Abnormal Heart Sounds: no systolic murmur, no diastolic murmur, no rub, no S3 Gallop, no S4 Gallop, no click, no other - Gastrointestinal General gastrointestinal: no absent bowel sounds, no decreased bowel sounds, no distended, hepatomegaly (2 FB below costal margin on inspiration), no hyperactive bowel sounds, normal bowel sounds, no organomegaly, no rigid, no scaphoid, soft, splenomegaly (felt on inspiration), tenderness, no umbilical hernia, no ventral hernia - Neurologic Neurologic: CNII-XII intact - Musculoskeletal Musculoskeletal: strength equal bilaterally - Psychiatric Psychiatric: A&O x's 3, appropriate affect, intact judgment & insight Results CBC & Chem 7: 03/03/21 09:36 03/03/21 09:36 Labs: Abnormal Lab Results - Last 24 Hours (Table) 03/02/21 03/02/21 03/02/21 Range/Units 18:41 18:57 18:57 RBC 3.56 L (4.30-5.90) m/uL Hgb 12.1 L (13.0-17.5) gm/dL Hct 35.6 L (39.0-53.0) % MCV 100.2 H (80.0-100.0) fL Plt Count 11 L* D (150-450) k/uL Lymphocytes # 0.5 L (1.0-4.8) k/uL PT (9.0-12.0) sec INR (<1.2) Sodium (137-145) mmol/L Carbon Dioxide (22-30) mmol/L Creatinine (0.66-1.25) mg/dL Glucose (74-99) mg/dL POC Glucose (mg/dL) 284 H (75-99) mg/dL Plasma Lactic Acid Bernabe (0.7-2.0) mmol/L Total Bilirubin (0.2-1.3) mg/dL AST (17-59) U/L ALT (4-49) U/L Lipase (23-300) U/L Urine Glucose (UA) 4+ H (Negative) Urine Ketones Trace H (Negative) 03/02/21 03/02/21 03/02/21 Range/Units 18:57 21:26 23:44 RBC 3.78 L (4.30-5.90) m/uL Hgb 12.6 L (13.0-17.5) gm/dL Hct 38.8 L (39.0-53.0) % MCV 102.7 H (80.0-100.0) fL Plt Count 9 L* (150-450) k/uL Lymphocytes # 0.3 L (1.0-4.8) k/uL PT (9.0-12.0) sec INR (<1.2) Sodium (137-145) mmol/L Carbon Dioxide 17 L (22-30) mmol/L Creatinine (0.66-1.25) mg/dL Glucose 266 H (74-99) mg/dL POC Glucose (mg/dL) 168 H (75-99) mg/dL Plasma Lactic Acid Bernabe (0.7-2.0) mmol/L Total Bilirubin 1.9 H (0.2-1.3) mg/dL AST 174 H (17-59) U/L ALT 83 H (4-49) U/L Lipase (23-300) U/L Urine Glucose (UA) (Negative) Urine Ketones (Negative) 03/03/21 03/03/21 03/03/21 Range/Units 09:36 09:36 11:29 RBC 3.80 L (4.30-5.90) m/uL Hgb 12.5 L (13.0-17.5) gm/dL Hct 38.1 L (39.0-53.0) % MCV 100.4 H (80.0-100.0) fL Plt Count 12 L* (150-450) k/uL Lymphocytes # 0.8 L (1.0-4.8) k/uL PT (9.0-12.0) sec INR (<1.2) Sodium 134 L (137-145) mmol/L Carbon Dioxide (22-30) mmol/L Creatinine 0.60 L (0.66-1.25) mg/dL Glucose 252 H (74-99) mg/dL POC Glucose (mg/dL) 282 H (75-99) mg/dL Plasma Lactic Acid Bernabe (0.7-2.0) mmol/L Total Bilirubin 2.8 H (0.2-1.3) mg/dL AST 1717 H (17-59) U/L ALT 874 H (4-49) U/L Lipase (23-300) U/L Urine Glucose (UA) (Negative) Urine Ketones (Negative) 03/03/21 03/03/21 03/03/21 Range/Units 11:36 14:42 15:49 RBC (4.30-5.90) m/uL Hgb (13.0-17.5) gm/dL Hct (39.0-53.0) % MCV (80.0-100.0) fL Plt Count (150-450) k/uL Lymphocytes # (1.0-4.8) k/uL PT 18.3 H (9.0-12.0) sec INR 1.8 H (<1.2) Sodium (137-145) mmol/L Carbon Dioxide (22-30) mmol/L Creatinine (0.66-1.25) mg/dL Glucose (74-99) mg/dL POC Glucose (mg/dL) 105 H (75-99) mg/dL Plasma Lactic Acid Bernabe 2.7 H* (0.7-2.0) mmol/L Total Bilirubin (0.2-1.3) mg/dL AST (17-59) U/L ALT (4-49) U/L Lipase (23-300) U/L Urine Glucose (UA) (Negative) Urine Ketones (Negative) 03/03/21 Range/Units 16:40 RBC (4.30-5.90) m/uL Hgb (13.0-17.5) gm/dL Hct (39.0-53.0) % MCV (80.0-100.0) fL Plt Count (150-450) k/uL Lymphocytes # (1.0-4.8) k/uL PT (9.0-12.0) sec INR (<1.2) Sodium (137-145) mmol/L Carbon Dioxide (22-30) mmol/L Creatinine (0.66-1.25) mg/dL Glucose (74-99) mg/dL POC Glucose (mg/dL) (75-99) mg/dL Plasma Lactic Acid Bernabe (0.7-2.0) mmol/L Total Bilirubin (0.2-1.3) mg/dL AST (17-59) U/L ALT (4-49) U/L Lipase 316 H (23-300) U/L Urine Glucose (UA) (Negative) Urine Ketones (Negative) Assessment and Plan (1) Thrombocytopenia Narrative/Plan: On chart review pt noted to have 2 labs in the last 2 months where plt were low but, not as low as they are currently. Lab work up ordered. No asa, NSAIDs, antiplatelet meds or anticoagulants. Transfuse for plt <10,000 or if symptomatic. Currently Hgb is stable, no overt signs of bleeding. Suspicions for splenic sequestration and possibly decreased thrombopoesis from liver damage. May be some marrow damage from ETOH but, you would suspect other counts to be affected as well. Pt remarks about sweats and rigors concerns for infection that could be presenting as an ITP. Pancultures pending. Will follow up. Current Visit: Yes Status: Acute Priority: High Code(s): D69.6 - THROMBOCYTOPENIA, UNSPECIFIED SNOMED Code(s): 743760742 (2) Coagulopathy Narrative/Plan: With low platelets, INR 1.8, 5mg of parenteral vit K ordered Current Visit: Yes Status: Acute Priority: High Code(s): D68.9 - COAGULATION DEFECT, UNSPECIFIED SNOMED Code(s): 68855660 (3) Liver dysfunction Narrative/Plan: Hep C, ETOH abuse. Current Visit: Yes Status: Acute Priority: High Code(s): K76.89 - OTHER SPECIFIED DISEASES OF LIVER SNOMED Code(s): 42799871
[2021-03-04 01:12] LABS: Hepatitis A Antibody IgM Nonreactive (Nonreactive); Hepatitis B Core IgM Nonreactive (Nonreactive); Hepatitis B Surface Antigen Nonreactive (Nonreactive); Hepatitis C IgG Antibody Reactive (Nonreactive)
[2021-03-04] MEDS: SODIUM CHLORIDE 0.9% 1,000 ML IV SCH ×3 (03:12→23:06)
[2021-03-04] MEDS: traMADol 50 MG TAB PO PRN ×2 (05:05→11:09)
[2021-03-04 07:26] LABS: % Iron Saturation 32.85 (15.00-50.00); Iron 109 ug/dL (65-175); Rheumatoid Factor, Qnt 15 IU/mL (0-15); Total Iron Binding Capacity 332 ug/dL (228-460)
[2021-03-04 07:31] LABS: Glucose,Whole Blood 137 mg/dL (75-99)
[2021-03-04 08:22] LABS: HCT 38.2 % (39.0-53.0); HGB 12.5 gm/dL (13.0-17.5); MCH 32.3 pg (25.0-35.0); MCHC 32.7 g/dL (31.0-37.0); MCV 98.9 fL (80.0-100.0); Mean Platelet Volume 10.6; RBC 3.87 m/uL (4.30-5.90); RDW 12.4 % (11.5-15.5); WBC 7.3 k/uL (3.8-10.6)
[2021-03-04 08:25] LABS: Vitamin B12 >2000.0 pg/mL (200.0-944.0)
[2021-03-04 08:31] LABS: Appearance,Urine Clear (Clear); Bilirubin,Urine 1+ (Negative); Blood,Urine Negative (Negative); Color,Urine Dark Yellow; Glucose,Urine (UA) Negative (Negative); Ketones,Urine Negative (Negative); Leukocyte Esterase,Urine Negative (Negative); Nitrite,Urine Negative (Negative); Protein,Urine Trace (Negative); Specific Gravity,Urine 1.021 (1.001-1.035)
[2021-03-04 08:31] LABS: INR 2.4 (<1.2); Partial Thromboplastin Time 27.3 sec (22.0-30.0); Prothrombin Time 22.8 sec (9.0-12.0)
[2021-03-04 08:33] LABS: Platelet Count 13 k/uL (150-450)
[2021-03-04 08:42] LABS: African American GFR (CKD) >90 (>60 ml/min/1.73 sqM); Albumin 3.3 g/dL (3.5-5.0); Alkaline Phosphatase 128 U/L (38-126); Anion Gap 7 mmol/L; Blood Urea Nitrogen 12 mg/dL (9-20); Calcium 8.8 mg/dL (8.4-10.2); Carbon Dioxide 23 mmol/L (22-30); Chloride 104 mmol/L (98-107); Glucose 147 mg/dL (74-99); Magnesium 1.4 mg/dL (1.6-2.3); Non-African American GFR(CKD) >90 (>60 ml/min/1.73 sqM); Potassium 4.2 mmol/L (3.5-5.1); Sodium 134 mmol/L (137-145); Total Bilirubin 4.9 mg/dL (0.2-1.3); Total Protein 6.2 g/dL (6.3-8.2)
[2021-03-04] MEDS ORDERED: PHYTONADIONE ORAL 5 MG/5 ML ORAL.SYRG PO STA (08:42)
[2021-03-04] MEDS ORDERED: PHYTONADIONE 10 MG in SODIUM CHLORIDE 0.9% 50 ML IVPB STA (09:00)
[2021-03-04] MEDS: THIAMINE 100 MG TAB PO SCH ×2 (09:11→17:21)
[2021-03-04] MEDS: LORATADINE 10 MG TAB PO SCH (09:11)
[2021-03-04] MEDS: PANTOPRAZOLE 40 MG/10 ML VIAL IVP SCH (09:11)
[2021-03-04] MEDS: MAGNESIUM OXIDE 400 MG TAB PO SCH (09:11)
[2021-03-04] MEDS: MULTIVITAMINS, THERA 1 EACH TAB PO SCH (09:11)
[2021-03-04] MEDS: INSULIN ASPART (NovoLOG) 100 UNIT/ML VIAL SQ SCH ×4 (09:12→20:49)
[2021-03-04 11:14] LABS: Protein, Total 6.9 g/dL (6.2-8.2)
[2021-03-04 11:51] LABS: Glucose,Whole Blood 224 mg/dL (75-99)
[2021-03-04] MEDS: MAGNESIUM SULFATE-D5W PMX 1 GM in DEXTROSE/WATER 1 100ML.BAG IVPB SCH ×2 (12:25→13:28)
[2021-03-04] MEDS: MORPHINE SULFATE 2 MG/ML SYRINGE IVP PRN ×2 (13:28→19:30)
[2021-03-04 13:49] LABS: ALT 2819 U/L (4-49)
[2021-03-04 13:51] LABS: AST 4622 U/L (17-59)
--- NOTE | 2021-03-04 14:05 | P.PN ---
Subjective Progress Note Date: 03/04/21 Principal diagnosis: thrombocytopenia In f/u today pt denies any bleeding, no acute changes in his condition over night. His N,V is improved, abd pain is controlled Objective - Vital Signs Vital signs: Vital Signs Temp 98.4 F 03/04/21 08:50 Pulse 98 03/04/21 08:50 Resp 16 03/04/21 08:50 BP 126/85 03/04/21 08:50 Pulse Ox 98 03/04/21 08:50 Intake & Output 03/03/21 03/04/21 03/04/21 18:59 06:59 18:59 Other: # Voids 3 1 # Bowel Movements 1 - Constitutional General appearance: Present: average body habitus, cooperative, no acute distress - EENT Eyes: Present: anicteric sclerae, EOMI, poor dentition ENT: Present: hearing grossly normal - Respiratory Respiratory: bilateral: CTA - Cardiovascular Rhythm: regular Heart sounds: normal: S1, S2 Abnormal Heart Sounds: Absent: systolic murmur, diastolic murmur, rub, S3 Gallop, S4 Gallop, click, other - Peripheral edema leg Peripheral Edema: bilateral: None - Gastrointestinal General gastrointestinal: Present: normal bowel sounds, soft - Neurologic Neurologic: Present: CNII-XII intact - Musculoskeletal Musculoskeletal: Present: strength equal bilaterally - Psychiatric Psychiatric: Present: A&O x's 3, appropriate affect, intact judgment & insight - Labs CBC & Chem 7: 03/04/21 07:38 03/04/21 07:38 Labs: Abnormal Lab Results - Last 24 Hours (Table) 03/03/21 03/03/21 03/03/21 Range/Units 11:36 14:42 15:49 RBC (4.30-5.90) m/uL Hgb (13.0-17.5) gm/dL Hct (39.0-53.0) % Plt Count (150-450) k/uL PT (9.0-12.0) sec INR (<1.2) Sodium (137-145) mmol/L Creatinine (0.66-1.25) mg/dL Glucose (74-99) mg/dL POC Glucose (mg/dL) 105 H (75-99) mg/dL Plasma Lactic Acid Bernabe 2.7 H* (0.7-2.0) mmol/L Magnesium (1.6-2.3) mg/dL Ferritin (22.0-322.0) ng/mL Total Bilirubin (0.2-1.3) mg/dL AST (17-59) U/L ALT (4-49) U/L Alkaline Phosphatase (38-126) U/L Total Protein (6.3-8.2) g/dL Albumin (3.5-5.0) g/dL Lipase (23-300) U/L Vitamin B12 (200.0-944.0) pg/mL Urine Protein (Negative) Urine Bilirubin (Negative) Hep C IgG Ab Reactive A (Nonreactive) 03/03/21 03/03/21 03/03/21 Range/Units 16:40 16:40 17:59 RBC (4.30-5.90) m/uL Hgb (13.0-17.5) gm/dL Hct (39.0-53.0) % Plt Count (150-450) k/uL PT (9.0-12.0) sec INR (<1.2) Sodium (137-145) mmol/L Creatinine (0.66-1.25) mg/dL Glucose (74-99) mg/dL POC Glucose (mg/dL) (75-99) mg/dL Plasma Lactic Acid Bernabe 2.4 H* (0.7-2.0) mmol/L Magnesium (1.6-2.3) mg/dL Ferritin 9155.0 H (22.0-322.0) ng/mL Total Bilirubin (0.2-1.3) mg/dL AST (17-59) U/L ALT (4-49) U/L Alkaline Phosphatase (38-126) U/L Total Protein (6.3-8.2) g/dL Albumin (3.5-5.0) g/dL Lipase 316 H (23-300) U/L Vitamin B12 >2000.0 H (200.0-944.0) pg/mL Urine Protein (Negative) Urine Bilirubin (Negative) Hep C IgG Ab (Nonreactive) 03/03/21 03/03/21 03/04/21 Range/Units 19:57 20:35 05:00 RBC (4.30-5.90) m/uL Hgb (13.0-17.5) gm/dL Hct (39.0-53.0) % Plt Count (150-450) k/uL PT (9.0-12.0) sec INR (<1.2) Sodium (137-145) mmol/L Creatinine (0.66-1.25) mg/dL Glucose (74-99) mg/dL POC Glucose (mg/dL) 230 H (75-99) mg/dL Plasma Lactic Acid Bernabe 2.4 H* (0.7-2.0) mmol/L Magnesium (1.6-2.3) mg/dL Ferritin (22.0-322.0) ng/mL Total Bilirubin (0.2-1.3) mg/dL AST (17-59) U/L ALT (4-49) U/L Alkaline Phosphatase (38-126) U/L Total Protein (6.3-8.2) g/dL Albumin (3.5-5.0) g/dL Lipase (23-300) U/L Vitamin B12 (200.0-944.0) pg/mL Urine Protein Trace H (Negative) Urine Bilirubin 1+ H (Negative) Hep C IgG Ab (Nonreactive) 03/04/21 03/04/21 03/04/21 Range/Units 07:30 07:38 07:38 RBC (4.30-5.90) m/uL Hgb (13.0-17.5) gm/dL Hct (39.0-53.0) % Plt Count (150-450) k/uL PT 22.8 H (9.0-12.0) sec INR 2.4 H (<1.2) Sodium 134 L (137-145) mmol/L Creatinine 0.63 L (0.66-1.25) mg/dL Glucose 147 H (74-99) mg/dL POC Glucose (mg/dL) 137 H (75-99) mg/dL Plasma Lactic Acid Bernabe (0.7-2.0) mmol/L Magnesium 1.4 L (1.6-2.3) mg/dL Ferritin (22.0-322.0) ng/mL Total Bilirubin 4.9 H (0.2-1.3) mg/dL AST 4622 H (17-59) U/L ALT 2819 H (4-49) U/L Alkaline Phosphatase 128 H (38-126) U/L Total Protein 6.2 L (6.3-8.2) g/dL Albumin 3.3 L (3.5-5.0) g/dL Lipase (23-300) U/L Vitamin B12 (200.0-944.0) pg/mL Urine Protein (Negative) Urine Bilirubin (Negative) Hep C IgG Ab (Nonreactive) 03/04/21 03/04/21 Range/Units 07:38 11:49 RBC 3.87 L (4.30-5.90) m/uL Hgb 12.5 L (13.0-17.5) gm/dL Hct 38.2 L (39.0-53.0) % Plt Count 13 L* (150-450) k/uL PT (9.0-12.0) sec INR (<1.2) Sodium (137-145) mmol/L Creatinine (0.66-1.25) mg/dL Glucose (74-99) mg/dL POC Glucose (mg/dL) 224 H (75-99) mg/dL Plasma Lactic Acid Bernabe (0.7-2.0) mmol/L Magnesium (1.6-2.3) mg/dL Ferritin (22.0-322.0) ng/mL Total Bilirubin (0.2-1.3) mg/dL AST (17-59) U/L ALT (4-49) U/L Alkaline Phosphatase (38-126) U/L Total Protein (6.3-8.2) g/dL Albumin (3.5-5.0) g/dL Lipase (23-300) U/L Vitamin B12 (200.0-944.0) pg/mL Urine Protein (Negative) Urine Bilirubin (Negative) Hep C IgG Ab (Nonreactive) - Imaging and Cardiology CT scan - abdomen: report reviewed CT Scan - head: report reviewed US - abdomen: report reviewed (liver) Assessment and Plan (1) Thrombocytopenia Narrative/Plan: On chart review pt noted to have 2 labs in the last 2 months where plt were low but, not as low as they are currently. No asa, NSAIDs, antiplatelet meds or anticoagulants. Transfuse for plt <10,000 or if symptomatic. Currently Hgb is stable, no overt signs of bleeding. Suspicions for splenic sequestration and possibly decreased thrombopoesis from liver damage. May be some marrow damage from ETOH but, you would suspect other counts to be affected as well. Pt remarks about sweats and rigors prior to admit, concerns for infection that could be presenting as an ITP. Pancultures pending. Work up pending, will follow up. Current Visit: Yes Status: Acute Priority: High Code(s): D69.6 - THROMBOCYTOPENIA, UNSPECIFIED SNOMED Code(s): 038427381 (2) Coagulopathy Narrative/Plan: Worse INR today, discussed with IM. Additional parenteral vit K ordered. Cont monitoring coags. Fibrinogen low normal at 201, ordered for AM to monitor Current Visit: Yes Status: Acute Priority: High Code(s): D68.9 - COAGULATION DEFECT, UNSPECIFIED SNOMED Code(s): 50625044 (3) Liver dysfunction Narrative/Plan: Hep C, ETOH abuse underlying causes of lliver dysfunction. Acute on chronic as evidenced by elevated LFTs and coagulopathy. Current Visit: Yes Status: Acute Priority: High Code(s): K76.89 - OTHER SPECIFIED DISEASES OF LIVER SNOMED Code(s): 52405177 Plan: Dr. Millard discussed with pt that the damage that has been done to his liver may be to a degree reversible but, that would require cessation of ETOH. There is no safe amount of alcohol. Pt verbalized understanding. Attests: I have performed H&P, seen and examined pt, developed impression and plan of care. Discussed with dictator. Agree with documentation, documented as a scribe.
--- NOTE | 2021-03-04 14:36 | P.PN ---
Subjective Progress Note Date: 03/04/21 This is a pleasant 60-year-old male who presents to the hospital for complaints of nausea and vomiting following an episode of eating at work he did experience some dizziness and had to sit down. Patient also said that he was diaphoretic. Denies any fever or chills at home. He denies any diarrhea. He denies any blood in the stool. Denies any chest pain cough or shortness of breath. Patient is also experiencing some left lower quadrant abdominal cramping pain and tenderness as well as some tenderness on palpation to the left upper quadrant. Patient is a history of diabetes type 2, acid reflux, gout, arthritis, hep C, and chronic alcohol abuse. He does state that he was a heavy drinker in the past however as of recently made only drinks a beer 1 or 2 times per week. He had a had cervical spine CT completed in the which showed a multilevel spondylitic changes. Patient states that he was never formally treated for his hepatitis C was told when he went to donate plasma there was some residuals in his blood. We will check a hep C viral load. Labs on admission included white blood cell count 6.1, hemoglobin 12.6 and platelet count of 9, repeat was 12. In addition patient's PT/INR was elevated. INR today is 1.8. Sodium level is 134, bilirubin 2.8, AST initially was 174 is now 1717. ALT was 83 and now is a 874. Troponin was negative, COVID PCR was nondetectable. Urinalysis showed glucose and trace ketones. There is no signs of any petechia, patient denies any blood in the urine and blood in the stool. Vital signs include a temp of 98, heart rate 70 sinus rhythm, blood pressure 120/70 and 99% room air. 03/04/2021 Patient is evaluated today resting in bed. He does complain of some increasing pain to his left lower quadrant as well as left upper quadrant. It is tender to Palpation. He has not responded to tramadol. Most recent platelet count is up to 13. Patient had a bowel movement throughout the evening that was negative for any blood. INR today is 2.4 despite being treated with 5 mg of IVPB vitamin K yesterday. We will order 10 mg of IV vitamin K today. Hemoglobin is stable today at 12.5. Fibrinogen is 201. Iron studies are unremarkable with the exception of ferritin at 9155. Additional labs include a sodium level of 134, creatinine 0.63, magnesium 1.4. His AST and ALT continue to increase today his AST is 4622 and ALT is 2819. Bilirubin is 4.9, albumin 3.3. Urinalysis repeat was essentially negative urine appears dark yellow in color with trace protein and 1+ bili. Influenza AB were not detected. Covid was not detected. Hepatitis C IgG antibody was reactive, we are still pending hep C virus RNA quantitative and qualitative. Liver ultrasound showed hepatomegaly with underlying hepatic steatosis, gallbladder wall thickening and edematous with pericholecystic fluid noted correlate for acalculous cholecystitis. Abdomen CT shows small amount of fluid noted adjacent to the pancreatic head. Pancreatic head has mildly decreased attenuation. Changes of pancreatitis would be difficult to exclude. Correlate with amylase and lipase. Hepatomegaly with underlying hepatic steatosis. Ascites mild in degree. Small right basilar pleural effusion. We consulted surgical. Vital signs are stable, afebrile ROS Constitutional: Denied any fatigue denied any fever. Cardio vascular: denied any chest pain, palpitations Gastrointestinal: Reports nausea, denies vomiting, denies diarrhea denies blood in the stool, reports abdominal pain left lower quadrant and left upper quadrant Pulmonary: Denied any shortness of breath cough Neurologic denied any new focal deficits All inpatient medications were reviewed and appropriate changes in these medications as dictated in the interval history and assessment and plan. PHYSICAL EXAMINATION: GENERAL: The patient is alert and oriented x3, not in any acute distress. Well developed, well nourished. HEENT: Pupils are round and equally reacting to light. EOMI. No scleral icterus. No conjunctival pallor. Normocephalic, atraumatic. No pharyngeal erythema. No thyromegaly. CARDIOVASCULAR: S1 and S2 present. No murmurs, rubs, or gallops. PULMONARY: Chest is clear to auscultation, no wheezing or crackles. ABDOMEN: Soft, nondistended, normoactive bowel sounds. There is tenderness in the left lower quadrant as well as left upper quadrant patient did demonstrate some guarding to the left upper quadrant draining light manual palpation. MUSCULOSKELETAL: There is arthritic changes to his left great toe EXTREMITIES: No cyanosis, clubbing, or pedal edema. NEUROLOGICAL: Gross neurological examination did not reveal any focal deficits. SKIN: No rashes. Assessment and plan Thrombocytopenia of unknown etiology, workup in progress, concern for infection presenting as an ITP, transfuse if symptomatic for platelet count less than 10,000. Less likely infection as there is no white count, no fever, lactic acid normal. Coagulopathy, INR 2.4 vitamin K given repeat tomorrow Elevated liver enzymes most likely related to alcoholic liver disease, monitor trend Presyncope most likely related to episode of nausea vomiting with possible vasovagal response, check orthos Chronic alcohol abuse Pseudohyponatremia mostly related to hyperglycemia, monitor Diabetes mellitus type 2 with hyperglycemia, add novolog History of gout History of hepatitis C, IgG positive, hep C viral load pending history of GERD, GI prophylaxis we will add IV Protonix DVT prophylaxis deferred due to low platelet count Labs are pending, pending surgical consultation Objective - Vital Signs Vital signs: Vital Signs Temp 98.4 F 03/04/21 08:50 Pulse 98 03/04/21 08:50 Resp 16 03/04/21 08:50 BP 126/85 03/04/21 08:50 Pulse Ox 98 03/04/21 08:50 Intake & Output 03/03/21 03/04/21 03/04/21 18:59 06:59 18:59 Other: # Voids 3 1 # Bowel Movements 1 - Labs CBC & Chem 7: 03/04/21 07:38 03/04/21 07:38 Labs: Abnormal Lab Results - Last 24 Hours (Table) 03/03/21 03/03/21 03/03/21 Range/Units 11:29 11:36 11:36 RBC (4.30-5.90) m/uL Hgb (13.0-17.5) gm/dL Hct (39.0-53.0) % Plt Count (150-450) k/uL PT 18.3 H (9.0-12.0) sec INR 1.8 H (<1.2) Sodium (137-145) mmol/L Creatinine (0.66-1.25) mg/dL Glucose (74-99) mg/dL POC Glucose (mg/dL) 282 H (75-99) mg/dL Plasma Lactic Acid Bernabe (0.7-2.0) mmol/L Magnesium (1.6-2.3) mg/dL Ferritin (22.0-322.0) ng/mL Total Bilirubin (0.2-1.3) mg/dL Alkaline Phosphatase (38-126) U/L Total Protein (6.3-8.2) g/dL Albumin (3.5-5.0) g/dL Lipase (23-300) U/L Vitamin B12 (200.0-944.0) pg/mL Urine Protein (Negative) Urine Bilirubin (Negative) Hep C IgG Ab Reactive A (Nonreactive) 03/03/21 03/03/21 03/03/21 Range/Units 14:42 15:49 16:40 RBC (4.30-5.90) m/uL Hgb (13.0-17.5) gm/dL Hct (39.0-53.0) % Plt Count (150-450) k/uL PT (9.0-12.0) sec INR (<1.2) Sodium (137-145) mmol/L Creatinine (0.66-1.25) mg/dL Glucose (74-99) mg/dL POC Glucose (mg/dL) 105 H (75-99) mg/dL Plasma Lactic Acid Bernabe 2.7 H* (0.7-2.0) mmol/L Magnesium (1.6-2.3) mg/dL Ferritin (22.0-322.0) ng/mL Total Bilirubin (0.2-1.3) mg/dL Alkaline Phosphatase (38-126) U/L Total Protein (6.3-8.2) g/dL Albumin (3.5-5.0) g/dL Lipase 316 H (23-300) U/L Vitamin B12 (200.0-944.0) pg/mL Urine Protein (Negative) Urine Bilirubin (Negative) Hep C IgG Ab (Nonreactive) 03/03/21 03/03/21 03/03/21 Range/Units 16:40 17:59 19:57 RBC (4.30-5.90) m/uL Hgb (13.0-17.5) gm/dL Hct (39.0-53.0) % Plt Count (150-450) k/uL PT (9.0-12.0) sec INR (<1.2) Sodium (137-145) mmol/L Creatinine (0.66-1.25) mg/dL Glucose (74-99) mg/dL POC Glucose (mg/dL) 230 H (75-99) mg/dL Plasma Lactic Acid Bernabe 2.4 H* (0.7-2.0) mmol/L Magnesium (1.6-2.3) mg/dL Ferritin 9155.0 H (22.0-322.0) ng/mL Total Bilirubin (0.2-1.3) mg/dL Alkaline Phosphatase (38-126) U/L Total Protein (6.3-8.2) g/dL Albumin (3.5-5.0) g/dL Lipase (23-300) U/L Vitamin B12 >2000.0 H (200.0-944.0) pg/mL Urine Protein (Negative) Urine Bilirubin (Negative) Hep C IgG Ab (Nonreactive) 03/03/21 03/04/21 03/04/21 Range/Units 20:35 05:00 07:30 RBC (4.30-5.90) m/uL Hgb (13.0-17.5) gm/dL Hct (39.0-53.0) % Plt Count (150-450) k/uL PT (9.0-12.0) sec INR (<1.2) Sodium (137-145) mmol/L Creatinine (0.66-1.25) mg/dL Glucose (74-99) mg/dL POC Glucose (mg/dL) 137 H (75-99) mg/dL Plasma Lactic Acid Bernabe 2.4 H* (0.7-2.0) mmol/L Magnesium (1.6-2.3) mg/dL Ferritin (22.0-322.0) ng/mL Total Bilirubin (0.2-1.3) mg/dL Alkaline Phosphatase (38-126) U/L Total Protein (6.3-8.2) g/dL Albumin (3.5-5.0) g/dL Lipase (23-300) U/L Vitamin B12 (200.0-944.0) pg/mL Urine Protein Trace H (Negative) Urine Bilirubin 1+ H (Negative) Hep C IgG Ab (Nonreactive) 03/04/21 03/04/21 03/04/21 Range/Units 07:38 07:38 07:38 RBC 3.87 L (4.30-5.90) m/uL Hgb 12.5 L (13.0-17.5) gm/dL Hct 38.2 L (39.0-53.0) % Plt Count 13 L* (150-450) k/uL PT 22.8 H (9.0-12.0) sec INR 2.4 H (<1.2) Sodium 134 L (137-145) mmol/L Creatinine 0.63 L (0.66-1.25) mg/dL Glucose 147 H (74-99) mg/dL POC Glucose (mg/dL) (75-99) mg/dL Plasma Lactic Acid Bernabe (0.7-2.0) mmol/L Magnesium 1.4 L (1.6-2.3) mg/dL Ferritin (22.0-322.0) ng/mL Total Bilirubin 4.9 H (0.2-1.3) mg/dL Alkaline Phosphatase 128 H (38-126) U/L Total Protein 6.2 L (6.3-8.2) g/dL Albumin 3.3 L (3.5-5.0) g/dL Lipase (23-300) U/L Vitamin B12 (200.0-944.0) pg/mL Urine Protein (Negative) Urine Bilirubin (Negative) Hep C IgG Ab (Nonreactive) Assessment and Plan Time with Patient: Greater than 30
[2021-03-04 16:24] LABS: Albumin 3.84 g/dL (3.80-4.90); Gamma Globulin 1.58 g/dL (0.70-1.50)
--- NOTE | 2021-03-04 16:25 | P.GSCN ---
History of Present Illness Consult date: 03/04/21 History of present illness: CHIEF COMPLAINT: Nausea and vomiting HISTORY OF PRESENT ILLNESS: This is a 60-year-old male who presented to the hospital with nausea and vomiting and presyncopal episode. Patient has been having nausea and vomiting with left sided abdominal pain 2 days. He has been having chills and no fever. He reports normal bowel movements. He has a known history of alcohol abuse and hepatitis C. He reports having treatment for his hepatitis C. Liver ultrasound had shown gallbladder wall is thickened and edematous with pericholecystic fluid noted. Correlate for acalculous cholecystitis. Surgical service consulted for acalculous cholecystitis. Patient seen and examined with Dr. koehler PAST MEDICAL HISTORY: Diabetes mellitus, hepatitis C with treatment PAST SURGICAL HISTORY: Orthopedic surgery MEDICATIONS: See list. ALLERGIES: See list. SOCIAL HISTORY: No illicit drug use. Daily alcohol use REVIEW OF SYSTEMS: CONSTITUTIONAL: Denies fever or chills. HEENT: Denies blurred vision, vision changes, or eye pain. Denies hemoptysis CARDIOVASCULAR: Denies chest pain or pressure. RESPIRATORY: No shortness of breath. GASTROINTESTINAL: See HPI for pertinent findings HEMATOLOGIC: Denies bleeding disorders. GENITOURINARY: Denies any blood in urine or increased urinary frequency. SKIN: Denies pruitis. Denies rash. PHYSICAL EXAM: VITAL SIGNS: Reviewed GENERAL: Well-developed in no acute distress. HEENT: No sclera icterus. Extraocular movements grossly intact. Moist buccal mucosa. Head is atraumatic, normocephalic. No nasal drainage. ABDOMEN: Soft. Nondistended. Tenderness to palpation of the left upper quad rant and left side of abdomen NEUROLOGIC: Alert and oriented. Cranial nerves II through XII grossly intact. LABORATORY DATA: WBC 7.3 hemoglobin 12.5 platelets 9 up to 13 INR 2.4 Sodium 134 potassium 4.2 BUN 12 creatinine 0.63 glucose 147 Lactic acid 2.7 down to 1.4 Total bilirubin 1.9 up to 4.9 AST 174 up to 4622 ALT 83-2819 Alk phos 128 Serum alcohol level 41 Rheumatoid factor 15 Hepatitis C IgG antibody reactive Lipase 316 IMAGING: Liver ultrasound hepatomegaly with underlying hepatic steatosis. Gallbladder wall is thickened and edematous with pericholecystic fluid noted. Correlate for acalculous cholecystitis Computed tomography scan abdomen and pelvis small amount of fluid noted adjacent to the pancreatic head. Pancreatic head is of mildly decreased attenuation. Changes of pancreatitis would be difficult to exclude. Hepatomegaly with underlying hepatic steatosis. Ascites mild in degree. Small right basilar pleural effusion ASSESSMENT: 1. Left-sided abdominal pain with nausea and vomiting 2. Gallbladder wall thickening, edematous and fluid likely due to portal hyper tension, liver disease and alcohol use. This is not an acalculous cholecystitis. 3. Elevated LFTs 4. Daily alcohol use 5. History of hepatitis C 6. Fatty liver 7. Thrombocytopenia PLAN: -No surgical intervention planned -Continue supportive care Physician Developer Architect note has been reviewed by physician. Signing provider agrees with the documented findings, assessment, and plan of care. Past Medical History Past Medical History: Diabetes Mellitus Additional Past Medical History / Comment(s): gout, hep c (cured), ex ETOH, CHI History of Any Multi-Drug Resistant Organisms: None Reported Past Surgical History: Orthopedic Surgery Additional Past Surgical History / Comment(s): celsa knee Past Anesthesia/Blood Transfusion Reactions: No Reported Reaction Past Psychological History: No Psychological Hx Reported Smoking Status: Never smoker Past Alcohol Use History: Daily Additional Past Alcohol Use History / Comment(s): Pt states that he only drinks "a couple beers every day" Past Drug Use History: None Reported Medications and Allergies Home Medications Medication Instructions Recorded Confirmed Type metFORMIN HCL [Glucophage] 850 mg PO AC-BID 09/07/19 03/02/21 History Cyclobenzaprine [Flexeril] 10 mg PO TID PRN #15 tab 01/15/21 03/02/21 Rx Ibuprofen [Motrin] 600 mg PO Q8HR PRN #30 tab 01/15/21 03/02/21 Rx HYDROcodone/APAP 5-325MG [Dysart 1 tab PO DAILY PRN #6 tab 01/22/21 03/02/21 Rx 5-325] Diclofenac Sodium Gel [Voltaren 1 applic TOPICAL BID PRN 03/02/21 03/02/21 History Gel] Methyl Salicylate/Menth/Camph 1 patch TOPICAL DAILY PRN 03/02/21 03/02/21 History [Salonpas 3.1%-6.0%-10.0% Patch] Omeprazole 20 mg PO DAILY 03/02/21 03/02/21 History Allergies Allergy/AdvReac Type Severity Reaction Status Date / Time Sulfa (Sulfonamide Allergy Rash/Hives Verified 03/02/21 18:21 Antibiotics) Surgical - Exam Vital Signs Temp Pulse Resp BP Pulse Ox 97.9 F 108 H 19 118/73 98 03/02/21 18:18 03/02/21 18:18 03/02/21 18:18 03/02/21 18:18 03/02/21 18:18 Results - Labs 03/04/21 07:38 03/04/21 07:38 Abnormal Lab Results - Last 24 Hours (Table) 03/03/21 03/03/21 03/03/21 Range/Units 11:36 16:40 16:40 RBC (4.30-5.90) m/uL Hgb (13.0-17.5) gm/dL Hct (39.0-53.0) % Plt Count (150-450) k/uL PT (9.0-12.0) sec INR (<1.2) Sodium (137-145) mmol/L Creatinine (0.66-1.25) mg/dL Glucose (74-99) mg/dL POC Glucose (mg/dL) (75-99) mg/dL Plasma Lactic Acid Bernabe (0.7-2.0) mmol/L Magnesium (1.6-2.3) mg/dL Ferritin 9155.0 H (22.0-322.0) ng/mL Total Bilirubin (0.2-1.3) mg/dL AST (17-59) U/L ALT (4-49) U/L Alkaline Phosphatase (38-126) U/L Total Protein (6.3-8.2) g/dL Albumin (3.5-5.0) g/dL Lipase 316 H (23-300) U/L Vitamin B12 >2000.0 H (200.0-944.0) pg/mL Urine Protein (Negative) Urine Bilirubin (Negative) Hep C IgG Ab Reactive A (Nonreactive) 03/03/21 03/03/21 03/03/21 Range/Units 17:59 19:57 20:35 RBC (4.30-5.90) m/uL Hgb (13.0-17.5) gm/dL Hct (39.0-53.0) % Plt Count (150-450) k/uL PT (9.0-12.0) sec INR (<1.2) Sodium (137-145) mmol/L Creatinine (0.66-1.25) mg/dL Glucose (74-99) mg/dL POC Glucose (mg/dL) 230 H (75-99) mg/dL Plasma Lactic Acid Bernabe 2.4 H* 2.4 H* (0.7-2.0) mmol/L Magnesium (1.6-2.3) mg/dL Ferritin (22.0-322.0) ng/mL Total Bilirubin (0.2-1.3) mg/dL AST (17-59) U/L ALT (4-49) U/L Alkaline Phosphatase (38-126) U/L Total Protein (6.3-8.2) g/dL Albumin (3.5-5.0) g/dL Lipase (23-300) U/L Vitamin B12 (200.0-944.0) pg/mL Urine Protein (Negative) Urine Bilirubin (Negative) Hep C IgG Ab (Nonreactive) 03/04/21 03/04/21 03/04/21 Range/Units 05:00 07:30 07:38 RBC (4.30-5.90) m/uL Hgb (13.0-17.5) gm/dL Hct (39.0-53.0) % Plt Count (150-450) k/uL PT (9.0-12.0) sec INR (<1.2) Sodium 134 L (137-145) mmol/L Creatinine 0.63 L (0.66-1.25) mg/dL Glucose 147 H (74-99) mg/dL POC Glucose (mg/dL) 137 H (75-99) mg/dL Plasma Lactic Acid Bernabe (0.7-2.0) mmol/L Magnesium 1.4 L (1.6-2.3) mg/dL Ferritin (22.0-322.0) ng/mL Total Bilirubin 4.9 H (0.2-1.3) mg/dL AST 4622 H (17-59) U/L ALT 2819 H (4-49) U/L Alkaline Phosphatase 128 H (38-126) U/L Total Protein 6.2 L (6.3-8.2) g/dL Albumin 3.3 L (3.5-5.0) g/dL Lipase (23-300) U/L Vitamin B12 (200.0-944.0) pg/mL Urine Protein Trace H (Negative) Urine Bilirubin 1+ H (Negative) Hep C IgG Ab (Nonreactive) 03/04/21 03/04/21 03/04/21 Range/Units 07:38 07:38 11:49 RBC 3.87 L (4.30-5.90) m/uL Hgb 12.5 L (13.0-17.5) gm/dL Hct 38.2 L (39.0-53.0) % Plt Count 13 L* (150-450) k/uL PT 22.8 H (9.0-12.0) sec INR 2.4 H (<1.2) Sodium (137-145) mmol/L Creatinine (0.66-1.25) mg/dL Glucose (74-99) mg/dL POC Glucose (mg/dL) 224 H (75-99) mg/dL Plasma Lactic Acid Bernabe (0.7-2.0) mmol/L Magnesium (1.6-2.3) mg/dL Ferritin (22.0-322.0) ng/mL Total Bilirubin (0.2-1.3) mg/dL AST (17-59) U/L ALT (4-49) U/L Alkaline Phosphatase (38-126) U/L Total Protein (6.3-8.2) g/dL Albumin (3.5-5.0) g/dL Lipase (23-300) U/L Vitamin B12 (200.0-944.0) pg/mL Urine Protein (Negative) Urine Bilirubin (Negative) Hep C IgG Ab (Nonreactive) Microbiology - Last 24 Hours (Table) 03/04/21 05:30 Stool Culture - Preliminary Stool Diabetes panel 03/04/21 Range/Units 07:38 Sodium 134 L (137-145) mmol/L Potassium 4.2 (3.5-5.1) mmol/L Chloride 104 (98-107) mmol/L Carbon Dioxide 23 (22-30) mmol/L BUN 12 (9-20) mg/dL Creatinine 0.63 L (0.66-1.25) mg/dL Glucose 147 H (74-99) mg/dL Calcium 8.8 (8.4-10.2) mg/dL AST 4622 H (17-59) U/L ALT 2819 H (4-49) U/L Alkaline Phosphatase 128 H (38-126) U/L Total Protein 6.2 L (6.3-8.2) g/dL Albumin 3.3 L (3.5-5.0) g/dL Calcium panel 03/04/21 Range/Units 07:38 Calcium 8.8 (8.4-10.2) mg/dL Albumin 3.3 L (3.5-5.0) g/dL Pituitary panel 03/04/21 Range/Units 07:38 Sodium 134 L (137-145) mmol/L Potassium 4.2 (3.5-5.1) mmol/L Chloride 104 (98-107) mmol/L Carbon Dioxide 23 (22-30) mmol/L BUN 12 (9-20) mg/dL Creatinine 0.63 L (0.66-1.25) mg/dL Glucose 147 H (74-99) mg/dL Calcium 8.8 (8.4-10.2) mg/dL Adrenal panel 03/04/21 Range/Units 07:38 Sodium 134 L (137-145) mmol/L Potassium 4.2 (3.5-5.1) mmol/L Chloride 104 (98-107) mmol/L Carbon Dioxide 23 (22-30) mmol/L BUN 12 (9-20) mg/dL Creatinine 0.63 L (0.66-1.25) mg/dL Glucose 147 H (74-99) mg/dL Calcium 8.8 (8.4-10.2) mg/dL Total Bilirubin 4.9 H (0.2-1.3) mg/dL AST 4622 H (17-59) U/L ALT 2819 H (4-49) U/L Alkaline Phosphatase 128 H (38-126) U/L Total Protein 6.2 L (6.3-8.2) g/dL Albumin 3.3 L (3.5-5.0) g/dL
[2021-03-04 17:04] LABS: Glucose,Whole Blood 209 mg/dL (75-99)
[2021-03-04 19:19] LABS: Glucose,Whole Blood 162 mg/dL (75-99)
[2021-03-04] MEDS: INSULIN DETEMIR (LEVEMIR) 100 UNIT/ML SYR SQ SCH (20:49)
[2021-03-05] MEDS: MORPHINE SULFATE 2 MG/ML SYRINGE IVP PRN ×5 (02:12→20:19)
[2021-03-05] MEDS: ALPRAZolam 0.25 MG TAB PO PRN ×2 (07:22→21:28)
[2021-03-05] MEDS: LORATADINE 10 MG TAB PO SCH (07:22)
[2021-03-05] MEDS: PANTOPRAZOLE 40 MG/10 ML VIAL IVP SCH (07:22)
[2021-03-05] MEDS: MULTIVITAMINS, THERA 1 EACH TAB PO SCH (07:22)
[2021-03-05] MEDS: MAGNESIUM OXIDE 400 MG TAB PO SCH (07:22)
[2021-03-05] MEDS: THIAMINE 100 MG TAB PO SCH ×2 (07:22→16:03)
[2021-03-05 07:25] LABS: Glucose,Whole Blood 163 mg/dL (75-99)
[2021-03-05] MEDS: SODIUM CHLORIDE 0.9% 1,000 ML IV SCH ×2 (07:30→16:04)
[2021-03-05] MEDS: INSULIN ASPART (NovoLOG) 100 UNIT/ML VIAL SQ SCH ×4 (07:30→20:45)
[2021-03-05 09:11] LABS: Methylmalonic Acid 0.24 umol/L (<0.40)
[2021-03-05 09:19] LABS: African American GFR (CKD) >90 (>60 ml/min/1.73 sqM); Albumin 3.1 g/dL (3.5-5.0); Alkaline Phosphatase 112 U/L (38-126); Amylase 61 U/L (30-110); Anion Gap 5 mmol/L; Blood Urea Nitrogen 7 mg/dL (9-20); Calcium 8.8 mg/dL (8.4-10.2); Carbon Dioxide 26 mmol/L (22-30); Chloride 103 mmol/L (98-107); Glucose 219 mg/dL (74-99); Lipase 332 U/L (23-300); Magnesium 1.6 mg/dL (1.6-2.3); Non-African American GFR(CKD) >90 (>60 ml/min/1.73 sqM); Potassium 3.9 mmol/L (3.5-5.1); Sodium 134 mmol/L (137-145); Total Bilirubin 5.2 mg/dL (0.2-1.3); Total Protein 6.1 g/dL (6.3-8.2)
[2021-03-05 09:26] LABS: Basophils % (A) 1 %; Eosinophils # (A) 0.1 k/uL (0-0.7); Eosinophils % (A) 2 %; HGB 12.9 gm/dL (13.0-17.5); Lymphocytes # (A) 0.8 k/uL (1.0-4.8); Lymphocytes % (A) 16 %; MCH 33.4 pg (25.0-35.0); MCHC 34.8 g/dL (31.0-37.0); Mean Platelet Volume 8.4; Monocytes # (A) 0.3 k/uL (0-1.0); Monocytes % (A) 6 %; Neutrophils # (A) 3.5 k/uL (1.3-7.7); Neutrophils % (A) 74 %; RBC 3.85 m/uL (4.30-5.90); WBC 4.7 k/uL (3.8-10.6)
[2021-03-05 09:30] LABS: INR 2.2 (<1.2); Partial Thromboplastin Time 27.4 sec (22.0-30.0); Prothrombin Time 21.1 sec (9.0-12.0)
[2021-03-05 09:36] LABS: Platelet Count 60 k/uL (150-450)
[2021-03-05 10:11] LABS: ALT 3298 U/L (4-49)
[2021-03-05 10:34] LABS: AST 3729 U/L (17-59)
[2021-03-05] MEDS ORDERED: Magnesium Replacement Protocol 1 EACH MISC MISCELLANE PRN (10:52)
[2021-03-05] MEDS: MAGNESIUM SULFATE-D5W PMX 1 GM in DEXTROSE/WATER 1 100ML.BAG IVPB SCH ×2 (11:28→12:37)
[2021-03-05 11:43] LABS: Glucose,Whole Blood 255 mg/dL (75-99)
--- NOTE | 2021-03-05 12:44 | P.PN ---
Subjective Progress Note Date: 03/05/21 CHIEF COMPLAINT: Nausea and vomiting HISTORY OF PRESENT ILLNESS: Patient still complaining of left-sided abdominal pain. Does have a known history of alcohol abuse and history of hep C with prior treatment. Liver ultrasound had shown gallbladder wall is thickened and edematous with pericholecystic fluid noted. Correlate for acalculous cholecystitis. Patient tolerated clear liquid diet. LFTs are elevated. Afebrile. WBC is 4.7 hemoglobin 12.9 platelets 60 INR will 2.2 patient has been receiving vitamin K sodium 134 potassium 3.9 creatinine 0.54 glucose 255 magnesium 1.6 total bilirubin elevated at 5.2 AST 3729 ALT 3298 alk phos 112 hep C IgG antibody reactive. Hep C RNA quantitative pending Patient seen and examined with Dr. koehler PHYSICAL EXAM: VITAL SIGNS: Reviewed. GENERAL: Well-developed in no acute distress. HEENT: No sclera icterus. Extraocular movements grossly intact. Moist buccal mucosa. Head is atraumatic, normocephalic. ABDOMEN: Soft. Nondistended. Tenderness with palpation of left-sided abdomen NEUROLOGIC: Alert and oriented. Cranial nerves II through XII grossly intact. ASSESSMENT: 1. Left-sided abdominal pain with nausea and vomiting 2. Gallbladder wall thickening, edematous and fluid likely due to liver disease and alcohol use. This is not an acalculous cholecystitis. Patient has no right upper quadrant abdominal pain. 3. Elevated LFTs secondary to patient's liver disease 4. Daily alcohol use 5. History of hepatitis C 6. Fatty liver 7. Thrombocytopenia PLAN: -No surgical intervention planned -Continue supportive care -Patient would be a high-risk surgical candidate -Continue to observe Physician Wheelman note has been reviewed by physician. Signing provider agrees with the documented findings, assessment, and plan of care. Objective - Vital Signs Vital signs: Vital Signs Temp 98.9 F 03/05/21 07:25 Pulse 81 03/05/21 07:25 Resp 16 03/05/21 08:00 BP 120/77 03/05/21 07:25 Pulse Ox 96 03/05/21 07:25 Intake & Output 03/04/21 03/05/21 03/05/21 18:59 06:59 18:59 Intake Total 1700 Balance 1700 Intake: Intake, IV Titration 1200 Amount Sodium Chloride 0.9% 1, 1200 000 ml @ 100 mls/hr IV . Q10H BRUNA Rx#:[id number] Oral 500 Other: # Voids 2 2 - Labs CBC & Chem 7: 03/05/21 08:41 03/05/21 08:41 Labs: Abnormal Lab Results - Last 24 Hours (Table) 03/03/21 03/04/21 03/04/21 Range/Units 16:40 07:38 07:38 RBC (4.30-5.90) m/uL Hgb (13.0-17.5) gm/dL Hct (39.0-53.0) % Plt Count (150-450) k/uL Lymphocytes # (1.0-4.8) k/uL PT (9.0-12.0) sec INR (<1.2) Sodium (137-145) mmol/L BUN (9-20) mg/dL Creatinine (0.66-1.25) mg/dL Glucose (74-99) mg/dL POC Glucose (mg/dL) (75-99) mg/dL Hemoglobin A1c 6.4 H (4.0-6.0) % Total Bilirubin (0.2-1.3) mg/dL AST 4622 H (17-59) U/L ALT 2819 H (4-49) U/L Total Protein (6.3-8.2) g/dL Albumin (3.5-5.0) g/dL [id number]-4-[id number] 0.50 L (0.60-1.00) g/dL Gamma Globulins 1.58 H (0.70-1.50) g/dL Lipase (23-300) U/L 03/04/21 03/04/21 03/05/21 Range/Units 17:02 19:17 07:23 RBC (4.30-5.90) m/uL Hgb (13.0-17.5) gm/dL Hct (39.0-53.0) % Plt Count (150-450) k/uL Lymphocytes # (1.0-4.8) k/uL PT (9.0-12.0) sec INR (<1.2) Sodium (137-145) mmol/L BUN (9-20) mg/dL Creatinine (0.66-1.25) mg/dL Glucose (74-99) mg/dL POC Glucose (mg/dL) 209 H 162 H 163 H (75-99) mg/dL Hemoglobin A1c (4.0-6.0) % Total Bilirubin (0.2-1.3) mg/dL AST (17-59) U/L ALT (4-49) U/L Total Protein (6.3-8.2) g/dL Albumin (3.5-5.0) g/dL Fptnq-8-Sdlepfiok (0.60-1.00) g/dL Gamma Globulins (0.70-1.50) g/dL Lipase (23-300) U/L 03/05/21 03/05/21 03/05/21 Range/Units 08:41 08:41 08:41 RBC 3.85 L (4.30-5.90) m/uL Hgb 12.9 L (13.0-17.5) gm/dL Hct 37.0 L (39.0-53.0) % Plt Count 60 L D (150-450) k/uL Lymphocytes # 0.8 L (1.0-4.8) k/uL PT 21.1 H (9.0-12.0) sec INR 2.2 H (<1.2) Sodium 134 L (137-145) mmol/L BUN 7 L (9-20) mg/dL Creatinine 0.54 L (0.66-1.25) mg/dL Glucose 219 H (74-99) mg/dL POC Glucose (mg/dL) (75-99) mg/dL Hemoglobin A1c (4.0-6.0) % Total Bilirubin 5.2 H (0.2-1.3) mg/dL AST 3729 H (17-59) U/L ALT 3298 H (4-49) U/L Total Protein 6.1 L (6.3-8.2) g/dL Albumin 3.1 L (3.5-5.0) g/dL Jpssk-[id number]-Swctgdssj (0.60-1.00) g/dL Gamma Globulins (0.70-1.50) g/dL Lipase 332 H (23-300) U/L 03/05/21 Range/Units 11:41 RBC (4.30-5.90) m/uL Hgb (13.0-17.5) gm/dL Hct (39.0-53.0) % Plt Count (150-450) k/uL Lymphocytes # (1.0-4.8) k/uL PT (9.0-12.0) sec INR (<1.2) Sodium (137-145) mmol/L BUN (9-20) mg/dL Creatinine (0.66-1.25) mg/dL Glucose (74-99) mg/dL POC Glucose (mg/dL) 255 H (75-99) mg/dL Hemoglobin A1c (4.0-6.0) % Total Bilirubin (0.2-1.3) mg/dL AST (17-59) U/L ALT (4-49) U/L Total Protein (6.3-8.2) g/dL Albumin (3.5-5.0) g/dL Kueiu-8-Moenyxntv (0.60-1.00) g/dL Gamma Globulins (0.70-1.50) g/dL Lipase (23-300) U/L Microbiology - Last 24 Hours (Table) 03/03/21 16:40 Blood Culture - Preliminary Blood No Growth after 24 hours 03/04/21 05:30 Stool Culture - Preliminary Stool
--- NOTE | 2021-03-05 13:23 | P.PN ---
Subjective Progress Note Date: 03/05/21 This is a pleasant 60-year-old male who presents to the hospital for complaints of nausea and vomiting following an episode of eating at work he did experience some dizziness and had to sit down. Patient also said that he was diaphoretic. Denies any fever or chills at home. He denies any diarrhea. He denies any blood in the stool. Denies any chest pain cough or shortness of breath. Patient is also experiencing some left lower quadrant abdominal cramping pain and tenderness as well as some tenderness on palpation to the left upper quadrant. Patient is a history of diabetes type 2, acid reflux, gout, arthritis, hep C, and chronic alcohol abuse. He does state that he was a heavy drinker in the past however as of recently made only drinks a beer 1 or 2 times per week. He had a had cervical spine CT completed in the which showed a multilevel spondylitic changes. Patient states that he was never formally treated for his hepatitis C was told when he went to donate plasma there was some residuals in his blood. We will check a hep C viral load. Labs on admission included white blood cell count 6.1, hemoglobin 12.6 and platelet count of 9, repeat was 12. In addition patient's PT/INR was elevated. INR today is 1.8. Sodium level is 134, bilirubin 2.8, AST initially was 174 is now 1717. ALT was 83 and now is a 874. Troponin was negative, COVID PCR was nondetectable. Urinalysis showed glucose and trace ketones. There is no signs of any petechia, patient denies any blood in the urine and blood in the stool. Vital signs include a temp of 98, heart rate 70 sinus rhythm, blood pressure 120/70 and 99% room air. 03/04/2021 Patient is evaluated today resting in bed. He does complain of some increasing pain to his left lower quadrant as well as left upper quadrant. It is tender to Palpation. He has not responded to tramadol. Most recent platelet count is up to 13. Patient had a bowel movement throughout the evening that was negative for any blood. INR today is 2.4 despite being treated with 5 mg of IVPB vitamin K yesterday. We will order 10 mg of IV vitamin K today. Hemoglobin is stable today at 12.5. Fibrinogen is 201. Iron studies are unremarkable with the exception of ferritin at 9155. Additional labs include a sodium level of 134, creatinine 0.63, magnesium 1.4. His AST and ALT continue to increase today his AST is 4622 and ALT is 2819. Bilirubin is 4.9, albumin 3.3. Urinalysis repeat was essentially negative urine appears dark yellow in color with trace protein and 1+ bili. Influenza AB were not detected. Covid was not detected. Hepatitis C IgG antibody was reactive, we are still pending hep C virus RNA quantitative and qualitative. Liver ultrasound showed hepatomegaly with underlying hepatic steatosis, gallbladder wall thickening and edematous with pericholecystic fluid noted correlate for acalculous cholecystitis. Abdomen CT shows small amount of fluid noted adjacent to the pancreatic head. Pancreatic head has mildly decreased attenuation. Changes of pancreatitis would be difficult to exclude. Correlate with amylase and lipase. Hepatomegaly with underlying hepatic steatosis. Ascites mild in degree. Small right basilar pleural effusion. We consulted surgical. Vital signs are stable, afebrile 03/05/2021 Surgery evaluated the patient and reviewed all imaging and felt this was not a cholecystitis. There is no plan for any surgical intervention. Upon assessment today patient does state that his pain in his left lower quadrant is worsening and is 9 out of 10 and sharp in nature and is now radiating across to the right lower quadrant. Abdomen is tender to palpation. He has not had with a clear liquid diet as he states the cold food is hard for him to eat due to his poor dintition. However as he is experiencing Abdominal pain we will continue with the clear liuquid diet. Platelet count is up to 60 today, hemoglobin stable at 12.9. His INR is 2.2 today. Sodium level is 134, mag 1.6. Lipase remains e levated is not 332. AST and ALT are elevated. Blood pressure today is 120/77, afebrile. His hep C RNA quantitative is still pending. ROS Constitutional: Denied any fatigue denied any fever. Cardio vascular: denied any chest pain, palpitations Gastrointestinal: Reports nausea, denies vomiting, denies diarrhea denies blood in the stool, reports abdominal pain left lower quadrant and left upper quadrant Pulmonary: Denied any shortness of breath cough Neurologic denied any new focal deficits All inpatient medications were reviewed and appropriate changes in these medications as dictated in the interval history and assessment and plan. PHYSICAL EXAMINATION: GENERAL: The patient is alert and oriented x3, not in any acute distress. Well developed, well nourished. HEENT: Pupils are round and equally reacting to light. EOMI. No scleral icterus. No conjunctival pallor. Normocephalic, atraumatic. No pharyngeal erythema. No thyromegaly. CARDIOVASCULAR: S1 and S2 present. No murmurs, rubs, or gallops. PULMONARY: Chest is clear to auscultation, no wheezing or crackles. ABDOMEN: Soft, nondistended, normoactive bowel sounds. There is tenderness in the left lower quadrant as well as left upper quadrant patient did demonstrate some guarding to the left upper quadrant draining light manual palpation. MUSCULOSKELETAL: There is arthritic changes to his left great toe EXTREMITIES: No cyanosis, clubbing, or pedal edema. NEUROLOGICAL: Gross neurological examination did not reveal any focal deficits. SKIN: No rashes. Assessment and plan Left side abdominal pain radiating, with associated n/v, clr liquid diet Thrombocytopenia of unknown etiology, workup in progress Coagulopathy, INR 2.2 vitamin K given repeat tomorrow Elevated liver enzymes most likely related to alcoholic liver disease, monitor trend Presyncope most likely related to episode of nausea vomiting with possible vasovagal response, check orthos Chronic alcohol abuse Pseudohyponatremia mostly related to hyperglycemia, monitor Diabetes mellitus type 2 with hyperglycemia, add novolog Fatty Liver History of gout History of hepatitis C, IgG positive, hep C viral load pending history of GERD GI prophylaxis: IV Protonix DVT prophylaxis deferred due to low platelet count No surgical intervention planned at this time are still pending at hep C viral load. Repeat labs in the morning. Objective - Vital Signs Vital signs: Vital Signs Temp 98.9 F 03/05/21 07:25 Pulse 81 03/05/21 07:25 Resp 16 03/05/21 08:00 BP 120/77 03/05/21 07:25 Pulse Ox 96 03/05/21 07:25 Intake & Output 03/04/21 03/05/21 03/05/21 18:59 06:59 18:59 Intake Total 1700 Balance 1700 Intake: Intake, IV Titration 1200 Amount Sodium Chloride 0.9% 1, 1200 000 ml @ 100 mls/hr IV . Q10H BRUNA Rx#:[id number] Oral 500 Other: # Voids 2 2 - Labs CBC & Chem 7: 03/05/21 08:41 03/05/21 08:41 Labs: Abnormal Lab Results - Last 24 Hours (Table) 03/03/21 03/04/21 03/04/21 Range/Units 16:40 07:38 07:38 RBC (4.30-5.90) m/uL Hgb (13.0-17.5) gm/dL Hct (39.0-53.0) % Plt Count (150-450) k/uL Lymphocytes # (1.0-4.8) k/uL PT (9.0-12.0) sec INR (<1.2) Sodium (137-145) mmol/L BUN (9-20) mg/dL Creatinine (0.66-1.25) mg/dL Glucose (74-99) mg/dL POC Glucose (mg/dL) (75-99) mg/dL Hemoglobin A1c 6.4 H (4.0-6.0) % Total Bilirubin (0.2-1.3) mg/dL AST 4622 H (17-59) U/L ALT 2819 H (4-49) U/L Total Protein (6.3-8.2) g/dL Albumin (3.5-5.0) g/dL Nrcyk-2-Qngqeargj 0.50 L (0.60-1.00) g/dL Gamma Globulins 1.58 H (0.70-1.50) g/dL Lipase (23-300) U/L 03/04/21 03/04/21 03/04/21 Range/Units 11:49 17:02 19:17 RBC (4.30-5.90) m/uL Hgb (13.0-17.5) gm/dL Hct (39.0-53.0) % Plt Count (150-450) k/uL Lymphocytes # (1.0-4.8) k/uL PT (9.0-12.0) sec INR (<1.2) Sodium (137-145) mmol/L BUN (9-20) mg/dL Creatinine (0.66-1.25) mg/dL Glucose (74-99) mg/dL POC Glucose (mg/dL) 224 H 209 H 162 H (75-99) mg/dL Hemoglobin A1c (4.0-6.0) % Total Bilirubin (0.2-1.3) mg/dL AST (17-59) U/L ALT (4-49) U/L Total Protein (6.3-8.2) g/dL Albumin (3.5-5.0) g/dL Rlmua-7-Cgngekhxi (0.60-1.00) g/dL Gamma Globulins (0.70-1.50) g/dL Lipase (23-300) U/L 03/05/21 03/05/21 03/05/21 Range/Units 07:23 08:41 08:41 RBC 3.85 L (4.30-5.90) m/uL Hgb 12.9 L (13.0-17.5) gm/dL Hct 37.0 L (39.0-53.0) % Plt Count 60 L D (150-450) k/uL Lymphocytes # 0.8 L (1.0-4.8) k/uL PT (9.0-12.0) sec INR (<1.2) Sodium 134 L (137-145) mmol/L BUN 7 L (9-20) mg/dL Creatinine 0.54 L (0.66-1.25) mg/dL Glucose 219 H (74-99) mg/dL POC Glucose (mg/dL) 163 H (75-99) mg/dL Hemoglobin A1c (4.0-6.0) % Total Bilirubin 5.2 H (0.2-1.3) mg/dL AST 3729 H (17-59) U/L ALT 3298 H (4-49) U/L Total Protein 6.1 L (6.3-8.2) g/dL Albumin 3.1 L (3.5-5.0) g/dL Qaich-2-Wlhvjailx (0.60-1.00) g/dL Gamma Globulins (0.70-1.50) g/dL Lipase 332 H (23-300) U/L 03/05/21 Range/Units 08:41 RBC (4.30-5.90) m/uL Hgb (13.0-17.5) gm/dL Hct (39.0-53.0) % Plt Count (150-450) k/uL Lymphocytes # (1.0-4.8) k/uL PT 21.1 H (9.0-12.0) sec INR 2.2 H (<1.2) Sodium (137-145) mmol/L BUN (9-20) mg/dL Creatinine (0.66-1.25) mg/dL Glucose (74-99) mg/dL POC Glucose (mg/dL) (75-99) mg/dL Hemoglobin A1c (4.0-6.0) % Total Bilirubin (0.2-1.3) mg/dL AST (17-59) U/L ALT (4-49) U/L Total Protein (6.3-8.2) g/dL Albumin (3.5-5.0) g/dL Zncwd-2-Mumnulscy (0.60-1.00) g/dL Gamma Globulins (0.70-1.50) g/dL Lipase (23-300) U/L Microbiology - Last 24 Hours (Table) 03/03/21 16:40 Blood Culture - Preliminary Blood No Growth after 24 hours 03/04/21 05:30 Stool Culture - Preliminary Stool Assessment and Plan Time with Patient: Greater than 30
[2021-03-05] MEDS ORDERED: PHYTONADIONE 10 MG in SODIUM CHLORIDE 0.9% 50 ML IVPB STA (13:25)
[2021-03-05] MEDS ORDERED: SODIUM CHLORIDE 0.65% NASAL SPRAY 44 ML BTL NASAL PRN (13:26)
[2021-03-05 14:43] LABS: Free Kappa Lt Chain Qnt, Serum 2.63 mg/dL (0.33-1.94)
[2021-03-05 17:46] LABS: Glucose,Whole Blood 179 mg/dL (75-99)
[2021-03-05 20:04] VITALS: RESP 18
[2021-03-05 20:35] LABS: Glucose,Whole Blood 303 mg/dL (75-99)
--- NOTE | 2021-03-05 20:42 | P.PN ---
Subjective Progress Note Date: 03/05/21 Principal diagnosis: Thrombocytopenia Platelets are improved today 60K Objective - Vital Signs Vital signs: Vital Signs Temp 98.9 F 03/05/21 07:25 Pulse 81 03/05/21 07:25 Resp 16 03/05/21 08:00 BP 120/77 03/05/21 07:25 Pulse Ox 96 03/05/21 07:25 Intake & Output 03/04/21 03/05/21 03/05/21 18:59 06:59 18:59 Intake Total 1700 Balance 1700 Intake: Intake, IV Titration 1200 Amount Sodium Chloride 0.9% 1, 1200 000 ml @ 100 mls/hr IV . Q10H BRUNA Rx#:[id number] Oral 500 Other: # Voids 2 2 - Exam - Constitutional General appearance: Present: average body habitus, cooperative, no acute distress - EENT Eyes: Present: anicteric sclerae, EOMI, poor dentition ENT: Present: hearing grossly normal - Respiratory Respiratory: bilateral: CTA - Cardiovascular Rhythm: regular Heart sounds: normal: S1, S2 Abnormal Heart Sounds: Absent: systolic murmur, diastolic murmur, rub, S3 Gallop, S4 Gallop, click, other - Peripheral edema leg Peripheral Edema: bilateral: None - Gastrointestinal General gastrointestinal: Present: normal bowel sounds, soft - Neurologic Neurologic: Present: CNII-XII intact - Musculoskeletal Musculoskeletal: Present: strength equal bilaterally - Psychiatric Psychiatric: Present: A&O x's 3, appropriate affect, intact judgment & insight - Labs CBC & Chem 7: 03/05/21 08:41 03/05/21 08:41 Labs: Abnormal Lab Results - Last 24 Hours (Table) 03/03/21 03/04/21 03/04/21 Range/Units 16:40 07:38 07:38 RBC (4.30-5.90) m/uL Hgb (13.0-17.5) gm/dL Hct (39.0-53.0) % Plt Count (150-450) k/uL Lymphocytes # (1.0-4.8) k/uL PT (9.0-12.0) sec INR (<1.2) Sodium (137-145) mmol/L BUN (9-20) mg/dL Creatinine (0.66-1.25) mg/dL Glucose (74-99) mg/dL POC Glucose (mg/dL) (75-99) mg/dL Hemoglobin A1c 6.4 H (4.0-6.0) % Total Bilirubin (0.2-1.3) mg/dL AST 4622 H (17-59) U/L ALT 2819 H (4-49) U/L Total Protein (6.3-8.2) g/dL Albumin (3.5-5.0) g/dL Kmscg-3-Rwzjtuzke 0.50 L (0.60-1.00) g/dL Gamma Globulins 1.58 H (0.70-1.50) g/dL Lipase (23-300) U/L 03/04/21 03/04/21 03/05/21 Range/Units 17:02 19:17 07:23 RBC (4.30-5.90) m/uL Hgb (13.0-17.5) gm/dL Hct (39.0-53.0) % Plt Count (150-450) k/uL Lymphocytes # (1.0-4.8) k/uL PT (9.0-12.0) sec INR (<1.2) Sodium (137-145) mmol/L BUN (9-20) mg/dL Creatinine (0.66-1.25) mg/dL Glucose (74-99) mg/dL POC Glucose (mg/dL) 209 H 162 H 163 H (75-99) mg/dL Hemoglobin A1c (4.0-6.0) % Total Bilirubin (0.2-1.3) mg/dL AST (17-59) U/L ALT (4-49) U/L Total Protein (6.3-8.2) g/dL Albumin (3.5-5.0) g/dL Hnyrr-3-Kwbsfdazg (0.60-1.00) g/dL Gamma Globulins (0.70-1.50) g/dL Lipase (23-300) U/L 03/05/21 03/05/21 03/05/21 Range/Units 08:41 08:41 08:41 RBC 3.85 L (4.30-5.90) m/uL Hgb 12.9 L (13.0-17.5) gm/dL Hct 37.0 L (39.0-53.0) % Plt Count 60 L D (150-450) k/uL Lymphocytes # 0.8 L (1.0-4.8) k/uL PT 21.1 H (9.0-12.0) sec INR 2.2 H (<1.2) Sodium 134 L (137-145) mmol/L BUN 7 L (9-20) mg/dL Creatinine 0.54 L (0.66-1.25) mg/dL Glucose 219 H (74-99) mg/dL POC Glucose (mg/dL) (75-99) mg/dL Hemoglobin A1c (4.0-6.0) % Total Bilirubin 5.2 H (0.2-1.3) mg/dL AST 3729 H (17-59) U/L ALT 3298 H (4-49) U/L Total Protein 6.1 L (6.3-8.2) g/dL Albumin 3.1 L (3.5-5.0) g/dL Fwnnx-0-Daugplpsy (0.60-1.00) g/dL Gamma Globulins (0.70-1.50) g/dL Lipase 332 H (23-300) U/L 03/05/ Range/Units 11:41 RBC (4.30-5.90) m/uL Hgb (13.0-17.5) gm/dL Hct (39.0-53.0) % Plt Count (150-450) k/uL Lymphocytes # (1.0-4.8) k/uL PT (9.0-12.0) sec INR (<1.2) Sodium (137-145) mmol/L BUN (9-20) mg/dL Creatinine (0.66-1.25) mg/dL Glucose (74-99) mg/dL POC Glucose (mg/dL) 255 H (75-99) mg/dL Hemoglobin A1c (4.0-6.0) % Total Bilirubin (0.2-1.3) mg/dL AST (17-59) U/L ALT (4-49) U/L Total Protein (6.3-8.2) g/dL Albumin (3.5-5.0) g/dL Cylki-9-Kvmxyoiwk (0.60-1.00) g/dL Gamma Globulins (0.70-1.50) g/dL Lipase (23-300) U/L Microbiology - Last 24 Hours (Table) 03/03/21 16:40 Blood Culture - Preliminary Blood No Growth after 24 hours 03/04/21 05:30 Stool Culture - Preliminary Stool Assessment and Plan Plan: - Imaging and Cardiology CT scan - abdomen: report reviewed CT Scan - head: report reviewed US - abdomen: report reviewed (liver) Assessment and Plan Thrombocytopenia - Improving 60K today No asa, NSAIDs, antiplatelet meds or anticoagulants. Transfuse for plt <10,000 or if symptomatic. Currently Hgb is stable, no overt signs of bleeding. - Significant liver enzyme elevation - ETOH history Suspicions for splenic sequestration and possibly decreased thrombopoesis from liver damage. Current Visit: Yes Status: Acute Priority: High Code(s): D69.6 - THROMBOCYTOPENIA, UNSPECIFIED SNOMED Code(s): 054617041 Coagulopathy - INR today is 2.2, Current Visit: Yes Status: Acute Priority: High Code(s): D68.9 - COAGULATION DEFECT, UNSPECIFIED SNOMED Code(s): 30617533 Liver dysfunction - Known Hep C, ETOH abuse underlying causes of lliver dysfunction. - Acute on chronic as evidenced by elevated LFTs and coagulopathy. Current Visit: Yes Status: Acute Priority: High Code(s): K76.89 - OTHER SPECIFIED DISEASES OF LIVER SNOMED Code(s): 84382000
[2021-03-05] MEDS: INSULIN DETEMIR (LEVEMIR) 100 UNIT/ML SYR SQ SCH (20:45)
[2021-03-06] MEDS: MORPHINE SULFATE 2 MG/ML SYRINGE IVP PRN ×2 (01:03→05:37)
[2021-03-06] MEDS: SODIUM CHLORIDE 0.9% 1,000 ML IV SCH (05:39)
[2021-03-06 07:31] LABS: Glucose,Whole Blood 93 mg/dL (75-99)
[2021-03-06] MEDS: INSULIN ASPART (NovoLOG) 100 UNIT/ML VIAL SQ SCH (07:33)
[2021-03-06 07:38] VITALS: BP 114/78; PULSE 72; TEMP 98.4
[2021-03-06 08:09] LABS: Basophils % (A) 1 %; Eosinophils # (A) 0.2 k/uL (0-0.7); Eosinophils % (A) 5 %; HGB 12.7 gm/dL (13.0-17.5); Lymphocytes # (A) 1.2 k/uL (1.0-4.8); Lymphocytes % (A) 28 %; MCH 33.3 pg (25.0-35.0); MCHC 34.5 g/dL (31.0-37.0); MCV 96.7 fL (80.0-100.0); Mean Platelet Volume 8.1; Monocytes # (A) 0.3 k/uL (0-1.0); Monocytes % (A) 8 %; Neutrophils # (A) 2.4 k/uL (1.3-7.7); Neutrophils % (A) 56 %; RBC 3.82 m/uL (4.30-5.90); RDW 13.2 % (11.5-15.5); WBC 4.2 k/uL (3.8-10.6)
[2021-03-06] MEDS: THIAMINE 100 MG TAB PO SCH (08:27)
[2021-03-06] MEDS: MAGNESIUM OXIDE 400 MG TAB PO SCH (08:27)
[2021-03-06] MEDS: MULTIVITAMINS, THERA 1 EACH TAB PO SCH (08:27)
[2021-03-06] MEDS: LORATADINE 10 MG TAB PO SCH (08:28)
[2021-03-06] MEDS: ALPRAZolam 0.25 MG TAB PO PRN (08:35)
[2021-03-06 08:36] LABS: INR 1.4 (<1.2); Partial Thromboplastin Time 26.6 sec (22.0-30.0); Prothrombin Time 14.3 sec (9.0-12.0)
[2021-03-06 08:39] LABS: Platelet Count 88 k/uL (150-450)
[2021-03-06] MEDS: PANTOPRAZOLE 40 MG/10 ML VIAL IVP SCH (09:51)
[2021-03-06] MEDS: traMADol 50 MG TAB PO PRN (11:15)
--- NOTE | 2021-03-06 11:32 | P.DS ---
Providers Date of admission: 03/02/21 20:35 Attending physician: Claudia Parada Consults: 03/03/21 14:13 Consult Physician Routine Consulting Provider: Kris Millard Consult Reason/Comments: thrombocytopenia Do you want consulting provider notified?: Yes 03/03/21 15:50 Consult Physician Routine Consulting Provider: Bayron Malik Consult Reason/Comments: f/u liver US - correlate for acalculous cholecystitis Do you want consulting provider notified?: Yes Primary care physician: Ana Barrow Hospital Course: Final diagnoses Left side abdominal pain, related to enlarged liver Thrombocytopenia most likely related to chronic alcohol abuse, improving Coagulopathy related to alcoholic liver disease Elevated liver enzymes most likely related to alcoholic liver disease Chronic alcohol abuse Elevated CA 199 antigen, follow-up with oncology Pseudohyponatremia mostly related to hyperglycemia Diabetes mellitus type 2 with hyperglycemia, A1c 6.4 Fatty Liver History of gout History of hepatitis C, IgG positive, hep C viral load pending history of GERD Discharge disposition Patient is discharged home to follow-up with GI, hematology, and his PCP. We are stopping metformin due to alcoholic liver disease and lactic acidosis on admission. Switched to Januvia. We discharged the patient on a few tramadol tablets for pain in place of voltaren and norco due to severe thrombocytopenia on admission with elevated liver enzymes. Hospital Course This is a pleasant 51-negative male presented to the for complaints of nausea and vomiting following episode of eating at work. He did experience of dizziness and had to sit down. Patient was also diaphoretic. He denies any fever or chills. He denies any blood in the stool. Patient denies any chest pain, cough or shortness of breath. He is experiencing some abdominal pain to the left lower quadrant cramping in nature with tenderness. Patient is a history of diabetes mellitus type 2, acid reflux, gout, arthritis, hep C and chronic alcohol abuse. He was a heavy drinker in the past whenever he has slowed down recently. Patient did have a cervical spine CT completed that showed multilevel spondylitic changes. Hepatitis IgG was positive however we are still pending hepatitis C viral load. Labs on admission included a white blood cell count 6.1, platelet count of 9, elevated PT/INR. Sodium level has been stable at 134-135. Elevated liver enzymes are trending down. We did treat the patient with a liquid diet and consult hematology and surgical. Abdominal CT shows small mild fluid noted adjacent to the pancreatic head, pancreatic head of mildly decreased attenuation. Changes pancreatitis would be difficult to exclude. Hepatomegaly with underlying hepatic steatosis. Ascites mild in degree. Small right basilar pleural effusion. Liver ultrasound showed hepatomegaly with underlying hepatic steatosis. Gallbladder wall thickening and hepatitis of pericholecystic fluid noted. Correlate for acalculus cholecystitis. Patient was evaluated by surgical services who states that this is not consistent with an acalculous cholecystitis. There is no surgical intervention planned. Presenting labs on admission included a hemoglobin stable at 12.5. Platelet count improved to 88. We did not transfuse any platelets this admission. Patient was treated with 3 different doses of IV piggyback vitamin K. Most recent INR today is 1.4. Additionally patient presented with some lactic acidosis was elevated at 2.4 we did gave a fluid bolus and treat patient with IV fluids and hold metformin. Lactic acid has normalized at 1.4. Magnesium was low at 1.4 we replace per protocol and we'll discharge the patient on oral magnesium. Patient's blood sugars were running in the 160s to 200s. His A1c was 6.4. We did discontinue the metformin and start Januvia. Liver enzymes peaked at AST of 4622 and ALT of 2819. They are starting to trend downwards. We'll repeat these outpatient. Troponins negative, Covid was not detectable, influenza A B not detectable. Urinalysis was negative 2. Hepatitis panel showed a reactive hepatitis C IgG antibody. We are pending a hepatitis C viral load. Patient's CA 199 antigen is elevated at 81.4 lipase is also been elevated in the 300s, amylase within normal limits. Patient will follow-up with oncology outpatient for this. B12 was greater than 2000. Serum alcohol was 41 on admission. 03/06/2021 Patient is evaluated today at the bedside with family. He states his abdominal pain is better and he has been able to eat a little more today. He denies any nausea, vomiting, or diarrhea. He denies any cough, shortness of breath, chest pain, chest pressure, or palpitations. He would like to discharge home today. His bili count is 88 today. There are no signs of acute bleeding. INR today is 1.4 status post vitamin K yesterday. We will change his metformin over to Januvia due to lactic acidosis on admission from severe alcohol liver disease. In addition we changed his pain management from voltaren and [place] to tramadol. Vital signs today clear blood pressure 114/78, heart rate 72 SR, afebrile. Focal neurological examination is negative. Lungs are clear to auscultation. S1-S2 auscultated. Normoactive bowel sounds. Abdomen is soft, mild tenderness left lower quadrant but is improving. Patient is to follow with oncology outpatient as well as GI. Patient Condition at Discharge: Fair Plan - Discharge Summary Discharge Rx Participant: No New Discharge Prescriptions: No Action metFORMIN HCL [Glucophage] 850 mg PO AC-BID Ibuprofen [Motrin] 600 mg PO Q8HR PRN #30 tab PRN Reason: Pain HYDROcodone/APAP 5-325MG [[place] 5-325] 1 tab PO DAILY PRN #6 tab PRN Reason: Pain Diclofenac Sodium Gel [Voltaren Gel] 1 applic TOPICAL BID PRN PRN Reason: Pain Cyclobenzaprine [Flexeril] 10 mg PO TID PRN #15 tab PRN Reason: Muscle Spasm Methyl Salicylate/Menth/Camph [Salonpas 3.1%-6.0%-10.0% Patch] 1 patch TOPICAL DAILY PRN PRN Reason: Pain Omeprazole 20 mg PO DAILY Discharge Medication List metFORMIN HCL [Glucophage] 850 mg PO AC-BID 09/07/19 [History] Cyclobenzaprine [Flexeril] 10 mg PO TID PRN #15 tab 01/15/21 [Rx] Ibuprofen [Motrin] 600 mg PO Q8HR PRN #30 tab 01/15/21 [Rx] HYDROcodone/APAP 5-325MG [[place] 5-325] 1 tab PO DAILY PRN #6 tab 01/22/21 [Rx] Diclofenac Sodium Gel [Voltaren Gel] 1 applic TOPICAL BID PRN 03/02/21 [History] Methyl Salicylate/Menth/Camph [Salonpas 3.1%-6.0%-10.0% Patch] 1 patch TOPICAL DAILY PRN 03/02/21 [History] Omeprazole 20 mg PO DAILY 03/02/21 [History] Follow up Appointment(s)/Referral(s): Pushpa Perez MD [Primary Care Provider] - 1-2 days Discharge/Stand Alone Forms: Who Do I Call?
[2021-03-06 12:56] LABS: Magnesium 1.8 mg/dL (1.5-2.4)
[2021-03-06 13:22] LABS: African American GFR (CKD) 119.7 (60.0-200.0); Albumin 3.3 g/dL (3.8-4.9); Albumin/Globulin Ratio 1.38 (1.60-3.17); BUN/Creat Ratio 6.86 Ratio (12.00-20.00); Blood Urea Nitrogen 4.8 mg/dL (9.0-27.0); Calcium 8.6 mg/dL (8.7-10.3); Globulin 2.4 g/dL (1.6-3.3); Non-African American GFR(CKD) 103.3 (60.0-200.0); Potassium 3.5 mmol/L (3.5-5.5); Total Bilirubin 5.1 mg/dL (0.30-1.20); Total Protein 5.7 g/dL (6.2-8.2)
== END 2021-03-06 12:42 | disposition home or self-care (01) | DRG 813 ==
LOC: EC 18:10 → 5NMEDONC 20:35 → 1SOBS 03-03 05:06 → 5NMEDONC 03-05 14:59
PROVIDERS: ADMIT Internal Medicine; ATTEND Internal Medicine
DX: D69.59 Other secondary thrombocytopenia (principal); R18.8 Other ascites; E87.2 Acidosis; J90 Pleural effusion, not elsewhere classified; K76.6 Portal hypertension; D68.9 Coagulation defect, unspecified; E11.9 Type 2 diabetes mellitus without complications; F10.10 Alcohol abuse, uncomplicated; R19.7 Diarrhea, unspecified; R55 Syncope and collapse; R79.89 Other specified abnormal findings of blood chemistry; Z20.822 Contact with and (suspected) exposure to COVID-19; R53.1 Weakness; B18.2 Chronic viral hepatitis C; Z79.84 Long term (current) use of oral hypoglycemic drugs; M10.9 Gout, unspecified; Z71.41 Alcohol abuse counseling and surveillance of alcoholic; E11.65 Type 2 diabetes mellitus with hyperglycemia; K76.0 Fatty (change of) liver, not elsewhere classified; K76.89 Other specified diseases of liver; K82.8 Other specified diseases of gallbladder; R00.0 Tachycardia, unspecified; M47.812 Spondylosis without myelopathy or radiculopathy, cervical region; R11.2 Nausea with vomiting, unspecified; R42 Dizziness and giddiness; K21.9 Gastro-esophageal reflux disease without esophagitis; M19.90 Unspecified osteoarthritis, unspecified site; K70.9 Alcoholic liver disease, unspecified; R60.9 Edema, unspecified; Y90.2 Blood alcohol level of 40-59 mg/100 ml; Z88.2 Allergy status to sulfonamides
CPT/HCPCS: 36415; 70450; 72125; 74160; 76705; 80053; 80074; 80320; 81003; 82150; 82607; 82728; 82747; 83036; 83540; 83550; 83605; 83690; 83735; 83883; 83921; 84165; 84484; 85025; 85027; 85384; 85610; 85730; 86038; 86301; 86334; 86431; 87040; 87045; 87046; 87502; 87522; 87635; 93005; 96361; 96374; 99285

== ENCOUNTER 2021-04-15 12:00 | Emergency (ER) | payer OTHER ==
[2021-04-15 12:12] VITALS: RESP 18
[2021-04-15 12:15] LABS: Glucose,Whole Blood 230 mg/dL (75-99)
[2021-04-15] MEDS ORDERED: SODIUM CHLORIDE 0.9% 1,000 ML IV ONE (12:22)
[2021-04-15] MEDS ORDERED: HYDROcodone/APAP 5-325MG 1 EACH TAB PO STA (12:22)
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
[2021-04-15 13:04] LABS: Basophils # (A) 0.1 k/uL (0-0.2); Basophils % (A) 1 %; Eosinophils % (A) 1 %; HCT 44.8 % (39.0-53.0); HGB 15.2 gm/dL (13.0-17.5); Lymphocytes # (A) 2.2 k/uL (1.0-4.8); Lymphocytes % (A) 49 %; MCH 33.3 pg (25.0-35.0); MCV 97.9 fL (80.0-100.0); Mean Platelet Volume 7.5; Monocytes # (A) 0.3 k/uL (0-1.0); Monocytes % (A) 6 %; Neutrophils # (A) 1.8 k/uL (1.3-7.7); Neutrophils % (A) 39 %; RBC 4.58 m/uL (4.30-5.90); RDW 12.4 % (11.5-15.5); WBC 4.5 k/uL (3.8-10.6)
[2021-04-15 13:06] LABS: ALT 19 U/L (4-49); AST 34 U/L (17-59); African American GFR (CKD) >90 (>60 ml/min/1.73 sqM); Albumin 4.3 g/dL (3.5-5.0); Alkaline Phosphatase 69 U/L (38-126); Anion Gap 16 mmol/L; Blood Urea Nitrogen 5 mg/dL (9-20); Calcium 9.1 mg/dL (8.4-10.2); Carbon Dioxide 25 mmol/L (22-30); Chloride 103 mmol/L (98-107); Glucose 273 mg/dL (74-99); Non-African American GFR(CKD) >90 (>60 ml/min/1.73 sqM); Potassium 3.7 mmol/L (3.5-5.1); Sodium 144 mmol/L (137-145); Total Bilirubin 0.7 mg/dL (0.2-1.3)
[2021-04-15 13:23] LABS: Platelet Count 204 k/uL (150-450)
--- NOTE | 2021-04-15 13:50 | CT ---
EXAMINATION TYPE: CT facial bones wo con DATE OF EXAM: 04/15/2021 COMPARISON: None HISTORY: Right sided orbital abrasion CT DLP: 449.8 mGycm Automated exposure control for dose reduction was used. TECHNIQUE: CT scan of the sinuses is performed without contrast, axial images are obtained, coronal r eformatted images are also reviewed. FINDINGS: The paranasal sinuses including the frontal, ethmoid, sphenoid, and maxillary sinuses bila terally are well-aerated without abnormal opacification, only minimal mucoperiosteal thickening prese nt in the maxillary antra. The ostiomeatal complex is patent bilaterally on the coronal images. Mild soft tissue swelling over the right frontal scalp. Visualized portion of mastoid air cells show no abnormal opacification. The globes are intact bilate rally. Degenerative disc changes with multilevel foraminal encroachment noted incidentally in the up per cervical spine IMPRESSION: No evident fracture
--- NOTE | 2021-04-15 14:02 | XR ---
Right hand and right wrist HISTORY: Trauma and pain 4 views of the right wrist, 3 views of the right hand Arthropathy is present, joint space loss and hypertrophic change at the carpometacarpal joint of the first digit right hand. Bone mineralization, joint spaces and alignment are maintained bilaterally. T here is soft tissue swelling present. IMPRESSION: No acute fracture or dislocation.
--- NOTE | 2021-04-15 14:04 | XR ---
Right hip HISTORY: Trauma and pain 2 views the right hip correlated to pelvis dated 01/18/2021 Bone mineralization, joint spaces and alignment are maintained. There are overlying artifacts. Calcif ication over the right ilium may represent injection granuloma. Frontal view appears foreshortened du e to technique. IMPRESSION: No acute fracture or dislocation.
[2021-04-15] MEDS ORDERED: DIPH,PERTUS(ACELL)TETVAC-LF 0.5 ML VIAL IM ONE (14:22)
[2021-04-15 14:57] VITALS: BP 126/90; PULSE 72; TEMP 98
== END 2021-04-15 14:55 | disposition home or self-care (01) ==
LOC: EC 12:00
DX: S00.81XA Abrasion of other part of head, initial encounter (principal); M79.641 Pain in right hand; M25.551 Pain in right hip; E11.65 Type 2 diabetes mellitus with hyperglycemia; W01.0XXA Fall on same level from slipping, tripping and stumbling without subsequent striking against object, initial encounter; Y92.410 Unspecified street and highway as the place of occurrence of the external cause; Z79.84 Long term (current) use of oral hypoglycemic drugs
CPT/HCPCS: 36415; 70486; 73502; 80053; 85025; 90715; 96360; 96372; 99284

== ENCOUNTER 2021-04-30 09:31 | Emergency (ER) | payer OTHER ==
[2021-04-30 09:45] VITALS: PULSE 118; RESP 18; TEMP 98.4
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
--- NOTE | 2021-04-30 10:31 | CT ---
EXAMINATION TYPE: CT brain wo con DATE OF EXAM: 04/30/2021 HISTORY: facial injury and headache from fall CT DLP: 1173.4 mGycm. Automated Exposure Control for Dose Reduction was Utilized. TECHNIQUE: CT scan of the head is performed without contrast. COMPARISON: CT brain March 02, 2021. FINDINGS: There is no acute intracranial hemorrhage or midline shift identified. There is mild diff use ventricular and sulcal prominence consistent with diffuse age-related cerebral atrophy. There is mild low-attenuation in the periventricular white matter consistent with chronic small vessel ischem ic change. The calvarium is intact. The globes are intact and the visualized sinuses are clear. IMPRESSION: No acute intracranial hemorrhage or midline shift. There is mild diffuse age-related ce rebral atrophy and chronic small vessel ischemic change redemonstrated. No significant change from p rior CT.
--- NOTE | 2021-04-30 10:37 | XR ---
EXAMINATION TYPE: XR Hip RT and AP Pelvis DATE OF EXAM: 04/30/2021 COMPARISON: Right hip x-ray 15 days ago. Pelvic x-ray January 18, 2021 HISTORY: Fall injury with pelvic and right hip pain TECHNIQUE: A single AP view of the pelvis is obtained. Two views of the right hip are obtained. FINDINGS: There is no acute fracture/dislocation evident in the pelvis. The sacroiliac joints appea r symmetric and unremarkable. Pubic symphysis is intact. Sclerotic area right iliac crest redemonstr ated in stable. Fdpe-[id number]-[id number] axial joint space loss in both hips redemonstrated. A few small scat tered right-sided pelvic phleboliths again seen. Two views of right hip show no acute fracture or dislocation. No focal lytic or sclerotic lesion see n in the proximal right femur. The overlying soft tissue is unremarkable. IMPRESSION: There is no acute fracture or dislocation in the pelvis or right hip.
[2021-04-30 11:37] VITALS: BP 125/86
== END 2021-04-30 11:37 | disposition home or self-care (01) ==
LOC: EC 09:31
DX: S01.81XA Laceration without foreign body of other part of head, initial encounter (principal); S70.01XA Contusion of right hip, initial encounter; E11.9 Type 2 diabetes mellitus without complications; Z79.84 Long term (current) use of oral hypoglycemic drugs; Z79.1 Long term (current) use of non-steroidal anti-inflammatories (NSAID); Z79.899 Other long term (current) drug therapy; V28.4XXA Motorcycle driver injured in noncollision transport accident in traffic accident, initial encounter; Y92.410 Unspecified street and highway as the place of occurrence of the external cause; Y93.55 Activity, bike riding
CPT/HCPCS: 70450; 73502; 99284

== ENCOUNTER 2021-07-20 12:04 | Inpatient (IN) | payer OTHER ==
[2021-07-20] MEDS ORDERED: LORazepam 1 MG TAB PO PRN (12:19)
[2021-07-20] MEDS ORDERED: MAG HYDROX/AL HYDROX/SIMETH 30 ML CUP PO PRN (12:19)
[2021-07-20] MEDS ORDERED: MAGNESIUM HYDROXIDE 2,400 MG/10 ML CUP PO PRN (12:19)
[2021-07-20] MEDS: NICOTINE 14MG/24HR PATCH TRANSDERM SCH (15:24)
[2021-07-20] MEDS: ACETAMINOPHEN TAB 325 MG TAB PO PRN (15:26)
[2021-07-20] MEDS: IBUPROFEN 400 MG TAB PO PRN ×2 (15:27→21:32)
[2021-07-20 17:48] LABS: Glucose,Whole Blood 168 mg/dL (75-99)
[2021-07-20] MEDS: INSULIN ASPART (NovoLOG) 100 UNIT/ML VIAL SQ SCH ×2 (17:48→20:36)
[2021-07-20 20:21] LABS: Glucose,Whole Blood 124 mg/dL (75-99)
[2021-07-20] MEDS: ATORVASTATIN 10 MG TAB PO SCH (20:35)
[2021-07-20] MEDS: QUEtiapine 50 MG TAB PO SCH (20:37)
[2021-07-20] MEDS: THIAMINE 100 MG TAB PO SCH (20:37)
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
[2021-07-21 07:40] LABS: Glucose,Whole Blood 169 mg/dL (75-99)
[2021-07-21] MEDS: NICOTINE 14MG/24HR PATCH TRANSDERM SCH (07:56)
[2021-07-21] MEDS: INSULIN ASPART (NovoLOG) 100 UNIT/ML VIAL SQ SCH ×5 (07:58→20:55)
[2021-07-21] MEDS: THIAMINE 100 MG TAB PO SCH ×2 (07:59→21:13)
[2021-07-21] MEDS: PANTOPRAZOLE 40 MG TABLET PO SCH (08:00)
[2021-07-21] MEDS: LINAGLIPTIN 5 MG TABLET PO SCH (08:48)
[2021-07-21] MEDS: OXYBUTYNIN XL 5 MG TAB.ER.24 PO SCH (08:48)
[2021-07-21] MEDS ORDERED: SERTRALINE 25 MG TAB PO SCH (09:00)
[2021-07-21 12:34] LABS: Glucose,Whole Blood 171 mg/dL (75-99)
[2021-07-21] MEDS: FLUTICASONE 50MCG/SPRAY NASAL 16GM EA NOSTRIL PRN (15:59)
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
[2021-07-21] MEDS: IBUPROFEN 400 MG TAB PO PRN (17:34)
[2021-07-21 17:44] LABS: Glucose,Whole Blood 141 mg/dL (75-99)
[2021-07-21] MEDS: QUEtiapine 50 MG TAB PO SCH (19:57)
[2021-07-21] MEDS: ATORVASTATIN 10 MG TAB PO SCH (19:57)
[2021-07-21] MEDS: DULoxetine HCL 20 MG CAPSULE.DR PO SCH (19:58)
[2021-07-21 20:48] LABS: Glucose,Whole Blood 198 mg/dL (75-99)
[2021-07-22 07:59] LABS: Glucose,Whole Blood 161 mg/dL (75-99)
[2021-07-22] MEDS: OXYBUTYNIN XL 5 MG TAB.ER.24 PO SCH (08:01)
[2021-07-22] MEDS: DULoxetine HCL 20 MG CAPSULE.DR PO SCH ×2 (08:01→21:46)
[2021-07-22] MEDS: PANTOPRAZOLE 40 MG TABLET PO SCH (08:01)
[2021-07-22] MEDS: THIAMINE 100 MG TAB PO SCH ×2 (08:01→20:42)
[2021-07-22] MEDS: LINAGLIPTIN 5 MG TABLET PO SCH (08:01)
[2021-07-22] MEDS: SERTRALINE 100 MG TAB PO SCH (08:01)
[2021-07-22] MEDS: INSULIN ASPART (NovoLOG) 100 UNIT/ML VIAL SQ SCH ×4 (08:06→20:09)
[2021-07-22] MEDS: NICOTINE 14MG/24HR PATCH TRANSDERM SCH (08:07)
[2021-07-22] MEDS: FLUTICASONE 50MCG/SPRAY NASAL 16GM EA NOSTRIL PRN (08:47)
[2021-07-22] MEDS: IBUPROFEN 400 MG TAB PO PRN ×2 (12:14→17:07)
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
[2021-07-22 13:12] LABS: Glucose,Whole Blood 118 mg/dL (75-99)
[2021-07-22 17:43] LABS: Glucose,Whole Blood 133 mg/dL (75-99)
[2021-07-22 20:08] LABS: Glucose,Whole Blood 183 mg/dL (75-99)
[2021-07-22] MEDS: ACETAMINOPHEN TAB 325 MG TAB PO PRN (20:41)
[2021-07-22] MEDS: ATORVASTATIN 10 MG TAB PO SCH (20:42)
[2021-07-22] MEDS: QUEtiapine 50 MG TAB PO SCH (20:42)
[2021-07-23 07:44] LABS: Glucose,Whole Blood 154 mg/dL (75-99)
[2021-07-23] MEDS: INSULIN ASPART (NovoLOG) 100 UNIT/ML VIAL SQ SCH ×4 (07:44→19:49)
[2021-07-23] MEDS: FLUTICASONE 50MCG/SPRAY NASAL 16GM EA NOSTRIL PRN (07:48)
[2021-07-23] MEDS: PANTOPRAZOLE 40 MG TABLET PO SCH (07:50)
[2021-07-23] MEDS: SERTRALINE 100 MG TAB PO SCH (07:50)
[2021-07-23] MEDS: IBUPROFEN 400 MG TAB PO PRN ×3 (07:50→21:05)
[2021-07-23] MEDS: THIAMINE 100 MG TAB PO SCH ×2 (07:51→19:56)
[2021-07-23] MEDS: DULoxetine HCL 20 MG CAPSULE.DR PO SCH ×2 (07:51→19:52)
[2021-07-23] MEDS: LINAGLIPTIN 5 MG TABLET PO SCH (07:51)
[2021-07-23] MEDS: OXYBUTYNIN XL 5 MG TAB.ER.24 PO SCH (07:51)
[2021-07-23 12:47] LABS: Glucose,Whole Blood 146 mg/dL (75-99)
--- NOTE | 2021-07-23 14:39 | P.PN ---
Progress Note - Text Progress Note Date: 07/23/21 Clinical Problems: Alcohol use disorder severe, depressive disorder, rule out alcohol induced mood disorder, rule out major depressive disorder, lack of housing, lack of income, lack of social supports Interim history: I reviewed the medical record, interviewed the patient and discussed the treatment and treatment plan with the treatment team. He complained of continued feelings depression, hopelessness and helplessness. He regrets his relapse and dismissal from residential treatment. He has contacted [facility] but is awaiting an admission date. We talked about suicidal thoughts he stated that he "does not know what he would do" if he were discharged from the hospital without safe housing. He digressed was experiences of being homeless and attempting suicide. He has not been attending therapeutic groups and activity. He spends his time alone seldom interacting with staff or peers. He is posed no management problem and has had no episodes of behavioral dyscontrol. Mental status exam: He presented as a short neatly groomed male who was pleasant on approach. He made eye contact and attended to the interview. He had a depressed facial expression. He was alert and oriented to person, place and time. He has psychomotor retardation. His speech was spontaneous wi th decreased rate and rhythm. His affect was depressed and not reactive. He denied suicidal ideation but expressed wishes. He denied homicidal ideation. He has feelings of hopelessness, helplessness and worthlessness. He ruminated over his alcoholism and his past experiences with homelessness. He did not express ideas reference, paranoid ideation or delusions. His thinking was abstract and his associations were coherent, logical goal directed. He denied hallucinations did not appear to be responding to internal stimuli. Assessment: He continues to have signs and symptoms of depression and intermittent thoughts of suicide. Patient continues to meet the criteria for inpatient psychiatric admission for symptom stabilization and safety Plan: Continue inpatient treatment. Safety precautions. Continue current medications. Encourage participation in therapeutic groups and activities. Evaluate clinical status and response to treatment daily basis.
[2021-07-23 17:33] LABS: Glucose,Whole Blood 186 mg/dL (75-99)
[2021-07-23] MEDS: QUEtiapine 50 MG TAB PO SCH (19:50)
[2021-07-23] MEDS: ATORVASTATIN 10 MG TAB PO SCH (19:50)
[2021-07-23] MEDS: ACETAMINOPHEN TAB 325 MG TAB PO PRN (19:52)
[2021-07-23 19:54] LABS: Glucose,Whole Blood 136 mg/dL (75-99)
[2021-07-24 07:43] LABS: Glucose,Whole Blood 147 mg/dL (75-99)
[2021-07-24] MEDS: PANTOPRAZOLE 40 MG TABLET PO SCH (07:44)
[2021-07-24] MEDS: INSULIN ASPART (NovoLOG) 100 UNIT/ML VIAL SQ SCH ×4 (07:45→20:52)
[2021-07-24] MEDS: OXYBUTYNIN XL 5 MG TAB.ER.24 PO SCH (08:49)
[2021-07-24] MEDS: LINAGLIPTIN 5 MG TABLET PO SCH (08:49)
[2021-07-24] MEDS: DULoxetine HCL 20 MG CAPSULE.DR PO SCH ×2 (08:49→20:52)
[2021-07-24] MEDS: THIAMINE 100 MG TAB PO SCH ×2 (08:51→20:52)
[2021-07-24] MEDS: SERTRALINE 100 MG TAB PO SCH (08:51)
[2021-07-24] MEDS: ACETAMINOPHEN TAB 325 MG TAB PO PRN ×2 (08:57→19:20)
[2021-07-24] MEDS: IBUPROFEN 400 MG TAB PO PRN ×2 (08:59→20:53)
[2021-07-24] MEDS: FLUTICASONE 50MCG/SPRAY NASAL 16GM EA NOSTRIL PRN (09:01)
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
[2021-07-24 12:27] LABS: Glucose,Whole Blood 173 mg/dL (75-99)
[2021-07-24 15:19] LABS: Glucose,Whole Blood 81 mg/dL (75-99)
[2021-07-24 15:50] LABS: Glucose,Whole Blood 148 mg/dL (75-99)
[2021-07-24 17:35] LABS: Glucose,Whole Blood 233 mg/dL (75-99)
[2021-07-24 19:49] LABS: Glucose,Whole Blood 117 mg/dL (75-99)
[2021-07-24] MEDS: ATORVASTATIN 10 MG TAB PO SCH (20:52)
[2021-07-24] MEDS: QUEtiapine 50 MG TAB PO SCH (20:52)
[2021-07-25 07:45] LABS: Glucose,Whole Blood 159 mg/dL (75-99)
[2021-07-25] MEDS: INSULIN ASPART (NovoLOG) 100 UNIT/ML VIAL SQ SCH ×4 (07:46→20:11)
[2021-07-25] MEDS: OXYBUTYNIN XL 5 MG TAB.ER.24 PO SCH (07:50)
[2021-07-25] MEDS: DULoxetine HCL 20 MG CAPSULE.DR PO SCH ×2 (07:50→20:37)
[2021-07-25] MEDS: PANTOPRAZOLE 40 MG TABLET PO SCH (07:50)
[2021-07-25] MEDS: LINAGLIPTIN 5 MG TABLET PO SCH (07:50)
[2021-07-25] MEDS: IBUPROFEN 400 MG TAB PO PRN ×3 (07:50→20:38)
[2021-07-25] MEDS: THIAMINE 100 MG TAB PO SCH ×2 (07:50→20:37)
[2021-07-25] MEDS: SERTRALINE 100 MG TAB PO SCH (07:50)
--- NOTE | 2021-07-25 10:55 | P.PN ---
Progress Note - Text Progress Note Date: 07/25/21 Interval History: Patient was seen in his room and was directable and agreeable to speak with designer/writer. Patient told me that he slept well last night but he still feels very depressed sad and down.. At this time patient denies any suicidal or homical ideations, intent or plan. Patient denies any auditory, visual hallucinations and denies any paranoia or delusions. Patient denies any side effects from the medications and has been compliant with meds. Mental Status Exam: General Appearance: Patient appears to be stated age is alert, directable, and cooperative. Behavior: Patient is calmly seated without any agitated behavior. Speech: Patient's speech is fluent and nonpressured. Mood/Affect: Mood is improving mildly, affect is congruent and constricted. Suicidality/Homicidality: Patient denies having any suicidal or homicidal ideation intent or plan. Perceptions: Patient denies any visual hallucinations and denies any auditory hallucinations Though content/process: There is no evidence of any delusional thought content and thought process is linear and goal-directed. Memory and concentration: AOX3, grossly intact for the purposes of this session Judgment and insight: Improving mildly Assessment Patient continues to show severe depressive symptomatology necessitating hospitalization. Plan: -Patient continues to meet criteria for inpatient psychiatric admission for symptom stabilization and safety. -Medications: Continue medication as before. -When necessary Ativan and Haldol for agitation/aggression. -SW on board for discharge planning. Encouraged the patient to participate in milieu.
[2021-07-25 12:40] LABS: Glucose,Whole Blood 82 mg/dL (75-99)
[2021-07-25] MEDS: FLUTICASONE 50MCG/SPRAY NASAL 16GM EA NOSTRIL PRN (12:47)
[2021-07-25] MEDS: ACETAMINOPHEN TAB 325 MG TAB PO PRN ×2 (12:48→20:37)
[2021-07-25 17:38] LABS: Glucose,Whole Blood 145 mg/dL (75-99)
[2021-07-25 19:52] LABS: Glucose,Whole Blood 162 mg/dL (75-99)
[2021-07-25] MEDS: ATORVASTATIN 10 MG TAB PO SCH (20:36)
[2021-07-25] MEDS: QUEtiapine 50 MG TAB PO SCH (20:37)
[2021-07-26] MEDS: IBUPROFEN 400 MG TAB PO PRN ×2 (03:41→19:55)
[2021-07-26 03:47] LABS: Glucose,Whole Blood 128 mg/dL (75-99)
[2021-07-26 07:36] LABS: Glucose,Whole Blood 168 mg/dL (75-99)
[2021-07-26] MEDS: INSULIN ASPART (NovoLOG) 100 UNIT/ML VIAL SQ SCH ×4 (07:53→19:54)
[2021-07-26] MEDS: PANTOPRAZOLE 40 MG TABLET PO SCH (07:54)
[2021-07-26] MEDS: DULoxetine HCL 20 MG CAPSULE.DR PO SCH (07:54)
[2021-07-26] MEDS: LINAGLIPTIN 5 MG TABLET PO SCH (07:54)
[2021-07-26] MEDS: OXYBUTYNIN XL 5 MG TAB.ER.24 PO SCH (07:54)
[2021-07-26] MEDS: THIAMINE 100 MG TAB PO SCH ×2 (07:55→19:55)
[2021-07-26] MEDS: ACETAMINOPHEN TAB 325 MG TAB PO PRN ×2 (07:55→19:56)
[2021-07-26] MEDS: SERTRALINE 100 MG TAB PO SCH (07:55)
[2021-07-26 12:42] LABS: Glucose,Whole Blood 108 mg/dL (75-99)
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
[2021-07-26 17:36] LABS: Glucose,Whole Blood 139 mg/dL (75-99)
[2021-07-26 19:48] LABS: Glucose,Whole Blood 206 mg/dL (75-99)
[2021-07-26] MEDS: ATORVASTATIN 10 MG TAB PO SCH (19:55)
[2021-07-26] MEDS: DULoxetine HCL 30 MG CAPSULE.DR PO SCH (19:55)
[2021-07-26] MEDS ORDERED: QUEtiapine 25 MG TAB PO SCH (21:00)
[2021-07-27 07:41] LABS: Glucose,Whole Blood 140 mg/dL (75-99)
[2021-07-27] MEDS: INSULIN ASPART (NovoLOG) 100 UNIT/ML VIAL SQ SCH ×4 (08:02→20:46)
[2021-07-27] MEDS: FOLIC ACID 1 MG TAB PO SCH (08:05)
[2021-07-27] MEDS: IBUPROFEN 400 MG TAB PO PRN ×3 (08:05→21:17)
[2021-07-27] MEDS: THIAMINE 100 MG TAB PO SCH ×2 (08:05→20:46)
[2021-07-27] MEDS: DULoxetine HCL 30 MG CAPSULE.DR PO SCH (08:05)
[2021-07-27] MEDS: PANTOPRAZOLE 40 MG TABLET PO SCH (08:05)
[2021-07-27] MEDS: LINAGLIPTIN 5 MG TABLET PO SCH (08:06)
[2021-07-27] MEDS: OXYBUTYNIN XL 5 MG TAB.ER.24 PO SCH (08:06)
--- NOTE | 2021-07-27 10:15 | P.PN ---
Progress Note - Text Progress Note Date: 07/27/21 Interval History: Patient was seen coming out of his room this morning and was directable and ag reeable to speak with account underwriter in the office. Patient appears to be more directable and cooperative with account underwriter today. He appears to have mild improvement in his affect however states that he feels "the same" and continues to speak about his depression. He states that it is hard to "shake it" and claims that he is trying to interact with other people however continues to feel depressed and anxious. He states that he does feel some improvement with the medication however. He was agreeable to have the Cymbalta increased once again. He states that he did have a bit better sleep last night and was also agreeable to have his Seroquel increased to 100 mg. He states that he is eating fairly well. He continues to be worried about where he will go after discharge and asked about different shelters and also about the rehab option. He states that he still has not had a decision given to him about rehab yet. At this time patient denies any suicidal or homical ideations, intent or plan. Patient denies any auditory, visual hallucinations and denies any paranoia or delusions. Patient denies any side effects from the medications and has been compliant with meds. Mental Status Exam: General Appearance: Patient appears to be short in stature, combed hair, stated age is alert, directable, and more cooperative. Behavior: Patient is calmly seated without any agitated behavior. Constricted, improving mildly Speech: Patient's speech is fluent and nonpressured. Soft tone Mood/Affect: Mood is depressed and anxious, improving mildly, affect is congruent and constricted. Suicidality/Homicidality: Patient denies having any homicidal ideation intent or plan. Denies suicidal thoughts, no intent or plan. Perceptions: Patient denies any visual hallucinations and denies any auditory hallucinations Though content/process: There is no evidence of any delusional thought content and thought process is linear and goal-directed. Focused on housing situation. Memory and concentration: AOX3, grossly intact for the purposes of this session Judgment and insight: Improving mildly Assessment Major depressive disorder, without psychotic features Generalized anxiety disorder Alcohol use disorder Plan: -Patient continues to meet criteria for inpatient psychiatric admission for symptom stabilization and safety. Patient has signed adult voluntary form and medication consent and was placed in patient's chart. -Medications: will increase Cymbalta to 30 mg daily +60 mg daily at bedtime for depression/anxiety/pain, increase Seroquel to 100 mg daily at bedtime as a mood adjunct/insomnia. Folic acid and thiamine for chronic alcohol use. -When necessary Ativan and Haldol for agitation/aggression. -NRT - needed as patient does not smoke -SW on board for discharge planning. Encouraged the patient to participate in milieu. Currently awaiting decision for intake day for rehab vs assisted.
[2021-07-27 12:35] LABS: Glucose,Whole Blood 177 mg/dL (75-99)
[2021-07-27] MEDS: FLUTICASONE 50MCG/SPRAY NASAL 16GM EA NOSTRIL PRN (12:40)
[2021-07-27] MEDS: ACETAMINOPHEN TAB 325 MG TAB PO PRN (12:40)
[2021-07-27 17:38] LABS: Glucose,Whole Blood 180 mg/dL (75-99)
[2021-07-27 19:51] LABS: Glucose,Whole Blood 125 mg/dL (75-99)
[2021-07-27] MEDS: DULoxetine HCL 60 MG CAPSULE.DR PO SCH (20:45)
[2021-07-27] MEDS: ATORVASTATIN 10 MG TAB PO SCH (20:45)
[2021-07-27] MEDS: QUEtiapine 100 MG TAB PO SCH (20:46)
[2021-07-28 07:09] VITALS: RESP 16
[2021-07-28 07:41] LABS: Glucose,Whole Blood 172 mg/dL (75-99)
[2021-07-28] MEDS: INSULIN ASPART (NovoLOG) 100 UNIT/ML VIAL SQ SCH ×4 (07:56→19:43)
[2021-07-28] MEDS: PANTOPRAZOLE 40 MG TABLET PO SCH (07:57)
[2021-07-28] MEDS: FOLIC ACID 1 MG TAB PO SCH (07:57)
[2021-07-28] MEDS: OXYBUTYNIN XL 5 MG TAB.ER.24 PO SCH (07:58)
[2021-07-28] MEDS: THIAMINE 100 MG TAB PO SCH ×2 (07:58→19:41)
[2021-07-28] MEDS: LINAGLIPTIN 5 MG TABLET PO SCH (07:58)
[2021-07-28] MEDS ORDERED: DULoxetine HCL 30 MG CAPSULE.DR PO SCH (09:00)
--- NOTE | 2021-07-28 09:50 | P.PN ---
Progress Note - Text Progress Note Date: 07/28/21 Interval History: Patient was seen coming out of his room this morning and was directable and ag reeable to speak with sign writer hand in the office. Patient appears to be more directable and cooperative with sign writer hand today and more talkative. He states that he is still feeling depressed however feels the medication is helping a bit and was agreeable to have it increased today. He states that he was worried about his dog yesterday as the dog apparently ran away but luckily states that they got him safely. He states that going to his girlfriends house at this house is not an option. He states that he is still waiting on a decision for to get an intake date. He appears to have mild improvement in his affect today. He was agreeable to have the Cymbalta increased once again. He states that he did have a bit better sleep last night. At this time patient denies any suicidal or homical ideations, intent or plan. Patient denies any auditory, visual hallucinations and denies any paranoia or delusions. Patient denies any side effects from the medications and has been compliant with meds. Mental Status Exam: General Appearance: Patient appears to be short in stature, combed hair, stated age is alert, directable, and more cooperative. Behavior: Patient is calmly seated without any agitated behavior. Constricted, improving mildly Speech: Patient's speech is fluent and nonpressured. Soft tone Mood/Affect: Mood is depressed and anxious, improving mildly, affect is congruent and constricted. Suicidality/Homicidality: Patient denies having any homicidal ideation intent or plan. Denies suicidal thoughts, no intent or plan. Perceptions: Patient denies any visual hallucinations and denies any auditory hallucinations Though content/process: There is no evidence of any delusional thought content and thought process is linear and goal-directed. Focused on housing situation and rehab. Memory and concentration: AOX3, grossly intact for the purposes of this session Judgment and insight: Improving mildly Assessment Major depressive disorder, without psychotic features Generalized anxiety disorder Alcohol use disorder Plan: -Patient continues to meet criteria for inpatient psychiatric admission for symptom stabilization and safety. Patient has signed adult voluntary form and medication consent and was placed in patient's chart. -Medications: will increase Cymbalta to 60 mg BID for depression/anxiety/pain, Seroquel 100 mg daily at bedtime as a mood adjunct/insomnia. Folic acid and thiamine for chronic alcohol use. -When necessary Ativan and Haldol for agitation/aggression. -NRT - needed as patient does not smoke -SW on board for discharge planning. Encouraged the patient to participate in milieu. Currently awaiting decision for intake day for rehab vs [facility]. likely discharge directly to rehab once intake date is established.
[2021-07-28] MEDS: IBUPROFEN 400 MG TAB PO PRN ×2 (10:22→19:40)
[2021-07-28] MEDS: TETRAHYDROZOLINE 0.05% OPHTH DROPS 15 ML BTL BOTH EYES PRN (10:23)
[2021-07-28] MEDS: FLUTICASONE 50MCG/SPRAY NASAL 16GM EA NOSTRIL PRN (10:23)
[2021-07-28 12:35] LABS: Glucose,Whole Blood 150 mg/dL (75-99)
[2021-07-28 17:34] LABS: Glucose,Whole Blood 147 mg/dL (75-99)
[2021-07-28 19:30] LABS: Glucose,Whole Blood 169 mg/dL (75-99)
[2021-07-28] MEDS: ATORVASTATIN 10 MG TAB PO SCH (19:40)
[2021-07-28] MEDS: QUEtiapine 100 MG TAB PO SCH (19:40)
[2021-07-28] MEDS: DULoxetine HCL 60 MG CAPSULE.DR PO SCH (19:41)
[2021-07-29 07:41] LABS: Glucose,Whole Blood 183 mg/dL (75-99)
[2021-07-29] MEDS: INSULIN ASPART (NovoLOG) 100 UNIT/ML VIAL SQ SCH ×4 (08:33→20:07)
[2021-07-29] MEDS: FLUTICASONE 50MCG/SPRAY NASAL 16GM EA NOSTRIL PRN (08:34)
[2021-07-29] MEDS: TETRAHYDROZOLINE 0.05% OPHTH DROPS 15 ML BTL BOTH EYES PRN ×2 (08:34→12:45)
[2021-07-29] MEDS: DULoxetine HCL 60 MG CAPSULE.DR PO SCH ×2 (08:35→20:09)
[2021-07-29] MEDS: THIAMINE 100 MG TAB PO SCH ×2 (08:35→20:09)
[2021-07-29] MEDS: PANTOPRAZOLE 40 MG TABLET PO SCH (08:35)
[2021-07-29] MEDS: OXYBUTYNIN XL 5 MG TAB.ER.24 PO SCH (08:35)
[2021-07-29] MEDS: LINAGLIPTIN 5 MG TABLET PO SCH (08:35)
[2021-07-29] MEDS: FOLIC ACID 1 MG TAB PO SCH (08:35)
[2021-07-29] MEDS: IBUPROFEN 400 MG TAB PO PRN (08:36)
[2021-07-29 10:38] VITALS: BMI 25.1
--- NOTE | 2021-07-29 12:04 | P.PN ---
Progress Note - Text Progress Note Date: 07/29/21 Interval History: Patient was seen lying in his bed this morning and was directable and agreeable to speak with life insurance underwriter in the office. Patient appears to be more directable and cooperative with life insurance underwriter today. He appears to have improvement in his affect today. He claims that his mood and anxiety even gradually improving. He states it does have racing thoughts at times mainly about what his next move her plan is to be when he leaves the hospital. He expressed thankfulness to life insurance underwriter for helping him. He states that he feels medications have been helping. He states that he is feeling more confident about rehab now being discharged straight to rehab over the weekend. He states that he has been going to some groups and participating in this as he can. He claims that his roommate snored very loudly last night and he did not get good sleep and wants to request a different room. At this time patient denies any suicidal or homical ideations, intent or plan. Patient denies any auditory, visual hallucinations and denies any paranoia or delusions. Patient denies any side effects from the medications and has been compliant with meds. Mental Status Exam: General Appearance: Patient appears to be short in stature, combed hair, stated age is alert, directable, and more cooperative. Behavior: Patient is calmly seated without any agitated behavior. Constricted, improving mildly Speech: Patient's speech is fluent and nonpressured. Mood/Affect: Mood is depressed and anxious, improving mildly, affect is congruent and constricted. Suicidality/Homicidality: Patient denies having any homicidal ideation intent or plan. Denies suicidal thoughts, no intent or plan. Perceptions: Patient denies any visual hallucinations and denies any auditory hallucinations Though content/process: There is no evidence of any delusional thought content and thought process is linear and goal-directed. Memory and concentration: AOX3, grossly intact for the purposes of this session Judgment and insight: Improving mildly Assessment Major depressive disorder, without psychotic features Generalized anxiety disorder Alcohol use disorder Plan: -Patient continues to meet criteria for inpatient psychiatric admission for symptom stabilization and safety. Patient has signed adult voluntary form and medication consent and was placed in patient's chart. -Medications: Cymbalta 60 mg BID for depression/anxiety/pain, Seroquel 100 mg daily at bedtime as a mood adjunct/insomnia. Folic acid and thiamine for chronic alcohol use. Added naltrexone by mouth 50 mg daily for cravings. -When necessary Ativan and Haldol for agitation/aggression. -NRT - needed as patient does not smoke -SW on board for discharge planning. Encouraged the patient to participate in milieu. Patient does have an intake date now set for Monday and will be discharged directly to [facility] Monday morning.
[2021-07-29 12:37] LABS: Glucose,Whole Blood 189 mg/dL (75-99)
[2021-07-29] MEDS: NALTREXONE HCL 50 MG TAB PO SCH (12:45)
[2021-07-29 17:36] LABS: Glucose,Whole Blood 109 mg/dL (75-99)
[2021-07-29 19:51] LABS: Glucose,Whole Blood 212 mg/dL (75-99)
[2021-07-29] MEDS: ATORVASTATIN 10 MG TAB PO SCH (20:09)
[2021-07-29] MEDS: QUEtiapine 100 MG TAB PO SCH (20:09)
[2021-07-30] MEDS: NALTREXONE HCL 50 MG TAB PO SCH (07:48)
[2021-07-30] MEDS: DULoxetine HCL 60 MG CAPSULE.DR PO SCH ×2 (07:48→20:27)
[2021-07-30] MEDS: OXYBUTYNIN XL 5 MG TAB.ER.24 PO SCH (07:48)
[2021-07-30] MEDS: THIAMINE 100 MG TAB PO SCH ×2 (07:49→20:27)
[2021-07-30] MEDS: FOLIC ACID 1 MG TAB PO SCH (07:49)
[2021-07-30 07:50] LABS: Glucose,Whole Blood 185 mg/dL (75-99)
[2021-07-30] MEDS: LINAGLIPTIN 5 MG TABLET PO SCH (07:51)
[2021-07-30] MEDS: PANTOPRAZOLE 40 MG TABLET PO SCH (07:51)
[2021-07-30] MEDS: INSULIN ASPART (NovoLOG) 100 UNIT/ML VIAL SQ SCH ×4 (07:52→20:27)
[2021-07-30] MEDS: ACETAMINOPHEN TAB 325 MG TAB PO PRN (07:58)
[2021-07-30] MEDS: IBUPROFEN 400 MG TAB PO PRN ×2 (07:59→20:28)
[2021-07-30] MEDS: TETRAHYDROZOLINE 0.05% OPHTH DROPS 15 ML BTL BOTH EYES PRN (08:02)
[2021-07-30] MEDS: FLUTICASONE 50MCG/SPRAY NASAL 16GM EA NOSTRIL PRN (11:35)
--- NOTE | 2021-07-30 12:58 | P.PN ---
Progress Note - Text Progress Note Date: 07/30/21 Interval History: Patient was seen wandering the hallways today and was directable and agreeable to seek technical report writer in the office. He states that he is doing a bit better today in terms of his mood and anxiety. He states that he is looking forward to going to [facility] over the weekend and states that he needs to be there early in the morning on Monday. He states that he feels at high risk if she was to go home or out on the streets he would relapse on alcohol and probably come back in the hospital. He states that he feels much safer being in the hospital. He claims that his appetite has improved. He claims that the Seroquel has been helping him significantly with sleep. At this time patient denies any suicidal or homical ideations, intent or plan. Patient denies any auditory, visual hallucinations and denies any paranoia or delusions. Patient denies any side effects from the medications and has been compliant with meds. Mental Status Exam: General Appearance: Patient appears to be short in stature, combed hair, stated age is alert, directable, and more cooperative. Behavior: Patient is calmly seated without any agitated behavior. Constricted, improving mildly Speech: Patient's speech is fluent and nonpressured. Mood/Affect: Mood is improving mildly, affect is congruent and constricted. Suicidality/Homicidality: Patient denies having any homicidal ideation intent or plan. Denies suicidal thoughts, no intent or plan. Perceptions: Patient denies any visual hallucinations and denies any auditory hallucinations Though content/process: There is no evidence of any delusional thought content and thought process is linear and goal-directed. Memory and concentration: AOX3, grossly intact for the purposes of this session Judgment and insight: Improving mildly Assessment Major depressive disorder, without psychotic features Generalized anxiety disorder Alcohol use disorder Plan: -Patient continues to meet criteria for inpatient psychiatric admission for symptom stabilization and safety. Patient has signed adult voluntary form and medication consent and was placed in patient's chart. -Medications: Cymbalta 60 mg BID for depression/anxiety/pain, Seroquel 100 mg daily at bedtime as a mood adjunct/insomnia. Folic acid and thiamine for chronic alcohol use. naltrexone by mouth 50 mg daily for cravings. -When necessary Ativan and Haldol for agitation/aggression. -NRT - needed as patient does not smoke -SW on board for discharge planning. Encouraged the patient to participate in milieu. Patient does have an intake date set for Monday and will be discharged directly to [facility] Monday morning. He will be picked up in the morning by his ride and taken to rehab. His scripts are printed/signed and will be sent to to pharmacy to have them ready for monday discharge
[2021-07-30 12:59] LABS: Glucose,Whole Blood 183 mg/dL (75-99)
[2021-07-30 17:35] LABS: Glucose,Whole Blood 161 mg/dL (75-99)
[2021-07-30 19:56] LABS: Glucose,Whole Blood 167 mg/dL (75-99)
[2021-07-30] MEDS: ATORVASTATIN 10 MG TAB PO SCH (20:27)
[2021-07-30] MEDS: QUEtiapine 100 MG TAB PO SCH (20:27)
[2021-07-31 07:42] LABS: Glucose,Whole Blood 189 mg/dL (75-99)
[2021-07-31] MEDS: PANTOPRAZOLE 40 MG TABLET PO SCH (07:51)
[2021-07-31] MEDS: THIAMINE 100 MG TAB PO SCH ×2 (07:51→20:13)
[2021-07-31] MEDS: FOLIC ACID 1 MG TAB PO SCH (07:51)
[2021-07-31] MEDS: LINAGLIPTIN 5 MG TABLET PO SCH (07:51)
[2021-07-31] MEDS: OXYBUTYNIN XL 5 MG TAB.ER.24 PO SCH (07:51)
[2021-07-31] MEDS: NALTREXONE HCL 50 MG TAB PO SCH (07:51)
[2021-07-31] MEDS: DULoxetine HCL 60 MG CAPSULE.DR PO SCH ×2 (07:51→20:12)
[2021-07-31] MEDS: INSULIN ASPART (NovoLOG) 100 UNIT/ML VIAL SQ SCH ×4 (07:52→20:12)
--- NOTE | 2021-07-31 08:10 | P.PN ---
Subjective Progress Note Date: 07/31/21 Principal diagnosis: Major Depression/ Alcohol dependance moderate Subjective: Still some trouble sleeping and the Seroquel helps with racing thoughts and still some restless sleep. Tolerating Cymbalta well, still depressed but hopefull for rehab. Objective: Co operative, alert, oriented, logical, serious affect, concerned to keep his diabetes under control, was able to remember the teaching he has had on his medications. Assessment: Stable and hopeful Plan:: will transfer to rehab tomorrow and increase Seroquel slightly to 150. Objective - Vital Signs Vital signs: Vital Signs Temp 97.6 F 07/30/21 06:52 Pulse 62 07/30/21 06:52 Resp 16 07/30/21 06:52 BP 105/55 07/30/21 06:52 Pulse Ox 99 07/28/21 06:42 - Labs Labs: Abnormal Lab Results - Last 24 Hours (Table) 07/30/21 07/30/21 07/30/21 Range/Units 12:54 17:33 19:54 POC Glucose (mg/dL) 183 H 161 H 167 H (75-99) mg/dL 07/31/21 Range/Units 07:40 POC Glucose (mg/dL) 189 H (75-99) mg/dL
[2021-07-31] MEDS: FLUTICASONE 50MCG/SPRAY NASAL 16GM EA NOSTRIL PRN (10:43)
[2021-07-31] MEDS: TETRAHYDROZOLINE 0.05% OPHTH DROPS 15 ML BTL BOTH EYES PRN (10:43)
[2021-07-31] MEDS: IBUPROFEN 400 MG TAB PO PRN (10:44)
[2021-07-31] MEDS: ACETAMINOPHEN TAB 325 MG TAB PO PRN (10:44)
[2021-07-31 12:58] LABS: Glucose,Whole Blood 209 mg/dL (75-99)
[2021-07-31 17:36] LABS: Glucose,Whole Blood 186 mg/dL (75-99)
[2021-07-31 19:48] LABS: Glucose,Whole Blood 198 mg/dL (75-99)
[2021-07-31] MEDS: ATORVASTATIN 10 MG TAB PO SCH (20:12)
[2021-07-31] MEDS: QUEtiapine 100 MG TAB PO SCH (20:13)
[2021-07-31] MEDS ORDERED: QUEtiapine 50 MG TAB PO SCH (21:00)
[2021-08-01 07:07] VITALS: TEMP 97.7
[2021-08-01 07:44] LABS: Glucose,Whole Blood 169 mg/dL (75-99)
[2021-08-01] MEDS: FLUTICASONE 50MCG/SPRAY NASAL 16GM EA NOSTRIL PRN (07:44)
[2021-08-01] MEDS: TETRAHYDROZOLINE 0.05% OPHTH DROPS 15 ML BTL BOTH EYES PRN (07:44)
[2021-08-01] MEDS: FOLIC ACID 1 MG TAB PO SCH (07:45)
[2021-08-01] MEDS: PANTOPRAZOLE 40 MG TABLET PO SCH (07:45)
[2021-08-01] MEDS: DULoxetine HCL 60 MG CAPSULE.DR PO SCH (07:45)
[2021-08-01] MEDS: NALTREXONE HCL 50 MG TAB PO SCH (07:45)
[2021-08-01] MEDS: THIAMINE 100 MG TAB PO SCH (07:45)
[2021-08-01] MEDS: OXYBUTYNIN XL 5 MG TAB.ER.24 PO SCH (07:46)
[2021-08-01] MEDS: LINAGLIPTIN 5 MG TABLET PO SCH (07:46)
--- NOTE | 2021-08-01 07:49 | P.PN ---
Subjective Progress Note Date: 08/01/21 Principal diagnosis: Major Depression/ Alcohol dependance moderate Subjective: He says that he slept really well last night on the slight increase in Seroquel 250. . Tolerating Cymbalta well, still depressed but hopeful for rehab. He denies any suicidal or homicidal ideas. He points out that he has been sober for as long as 7 years on one occasion in 4 years on another and then he got cocky and decided he could have just a little. We talked about the difference between com pliance and surrender and that he must surrender to 2 things one that he can never touch alcohol to that he is still personal worth and dignity even though he has this weakness. He must also give up the desire for feeling high. Instead he needs to focus on affirming himself for life well lived. Objective: Good eye contact, gait and station normal, response times a little slow but he is sleepy, co-operative, alert, oriented, logical, serious affect, concerned to keep his diabetes under control, was able to remember the teaching he has had on his medications. No psychotic symptoms no acknowledgment of no delusional statements. Assessment: Stable and hopeful Plan:: Okay to transfer to rehab . Objective - Vital Signs Vital signs: Vital Signs Temp 97.7 F 08/01/21 06:39 Pulse 57 L 08/01/21 06:39 Resp 16 08/01/21 06:39 BP 107/55 08/01/21 06:39 Pulse Ox 99 07/28/21 06:42 - Labs Labs: Abnormal Lab Results - Last 24 Hours (Table) 07/31/21 07/31/21 07/31/21 Range/Units 12:57 17:34 19:46 POC Glucose (mg/dL) 209 H 186 H 198 H (75-99) mg/dL 08/01/21 Range/Units 07:42 POC Glucose (mg/dL) 169 H (75-99) mg/dL
[2021-08-01] MEDS: INSULIN ASPART (NovoLOG) 100 UNIT/ML VIAL SQ SCH (07:50)
[2021-08-01 07:58] VITALS: BP 97/54; PULSE 62
== END 2021-08-01 09:05 | DRG 881 ==
LOC: 3MHU 14:25
PROVIDERS: ADMIT Psychiatry & Neurology Psychiatry; ATTEND Psychiatry & Neurology Psychiatry
DX: F32.9 Major depressive disorder, single episode, unspecified (principal); R45.851 Suicidal ideations; E11.9 Type 2 diabetes mellitus without complications; F10.20 Alcohol dependence, uncomplicated; F41.1 Generalized anxiety disorder; I10 Essential (primary) hypertension; F43.10 Post-traumatic stress disorder, unspecified; G89.4 Chronic pain syndrome; E78.5 Hyperlipidemia, unspecified; M10.9 Gout, unspecified; F34.1 Dysthymic disorder; Z59.00 Homelessness unspecified; Z79.4 Long term (current) use of insulin; Y08.89XS Assault by other specified means, sequela; Z81.8 Family history of other mental and behavioral disorders; Z98.890 Other specified postprocedural states; Z87.820 Personal history of traumatic brain injury; M19.90 Unspecified osteoarthritis, unspecified site; Z86.19 Personal history of other infectious and parasitic diseases; Z79.84 Long term (current) use of oral hypoglycemic drugs; Z79.899 Other long term (current) drug therapy; Z56.0 Unemployment, unspecified; Z88.0 Allergy status to penicillin; Z65.3 Problems related to other legal circumstances

== ENCOUNTER 2022-05-30 16:33 | Emergency (ER) | payer OTHER ==
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
[2022-05-30] MEDS ORDERED: CYCLOBENZAPRINE 10MG STARTER 3 TAB BTL PO STA (21:09)
[2022-05-30] MEDS ORDERED: ACET/COD 300 MG/30 MG STARTER PACK 6 TAB BTL PO STA (21:09)
[2022-05-30 21:21] VITALS: BP 158/83; PULSE 86; RESP 18; TEMP 98.2
== END 2022-05-30 21:31 | disposition home or self-care (01) ==
LOC: EC 16:33
DX: S50.02XA Contusion of left elbow, initial encounter (principal); M54.9 Dorsalgia, unspecified; E11.9 Type 2 diabetes mellitus without complications; F12.90 Cannabis use, unspecified, uncomplicated; Z88.2 Allergy status to sulfonamides; V49.50XA Passenger injured in collision with unspecified motor vehicles in traffic accident, initial encounter
CPT/HCPCS: 70450; 72100; 72125; 99284

== ENCOUNTER 2023-01-07 12:05 | Emergency (ER) | payer OTHER ==
[2023-01-07] MEDS ORDERED: dexAMETHasone 2 MG TAB PO STA (12:21)
[2023-01-07] MEDS ORDERED: IBUPROFEN 600 MG TAB PO STA (12:21)
[2023-01-07] MEDS ORDERED: HYDROcodone/APAP 5-325MG 1 EACH TAB PO STA (12:21)
--- NOTE | 2023-01-07 12:36 | ED ---
General Adult HPI - General Chief complaint: ENT Stated complaint: Ear pain Time Seen by Provider: 01/07/23 12:13 Source: patient, RN notes reviewed, old records reviewed Mode of arrival: ambulatory Limitations: no limitations - History of Present Illness Initial comments: Patient is a 62-year-old male who presents emergency Department complaining of sinus pain and tenderness. Patient is also having rhinorrhea, cough, as well as his ears being plugged. This is been ongoing for 1-2 weeks with symptoms occurring at different intervals. The sinus pressure is improved for 2 weeks, followed by the cough for the past 5-6 days and then the ear plugging for the last 4 days. He has occasionally hurt as well. Feels like they're plugged with fluid per patient. Denies sore throat. Denies chest pain. Denies nausea or vomiting. Denies diarrhea. Denies any other sick contacts. Has no abdominal pain or chest pain or shortness of breath. Presents for further evaluation at this time. States he does get this once a year typically believes he has a sinus infection. - Related Data Previous Rx's Medication Instructions Recorded Atorvastatin [Lipitor] 10 mg PO HS 30 Days tab 07/30/21 DULoxetine HCL [Cymbalta] 60 mg PO BID 30 Days 07/30/21 Fluticasone Nasal [place] [Flonase 2 spray EA NOSTRIL DAILY PRN 30 07/30/21 Nasal [place]] Days gm Folic Acid 1 mg PO DAILY 30 Days tab 07/30/21 Ibuprofen [Motrin] 800 mg PO Q6HR PRN tab 07/30/21 Linagliptin [Tradjenta] 5 mg PO DAILY 30 Days tablet 07/30/21 Naltrexone HCl [Revia] 50 mg PO DAILY 30 Days tab 07/30/21 Oxybutynin Xl [Ditropan XL] 5 mg PO DAILY 30 Days tablet 07/30/21 Pantoprazole [Protonix] 40 mg PO AC-BRKFST 30 Days tab 07/30/21 QUEtiapine [SEROquel] 100 mg PO HS 30 Days tab 07/30/21 Tetrahydrozoline 0.05% Ophth 1 drops BOTH EYES BID PRN 30 Days 07/30/21 [Visine Eye Drops] ml Thiamine [Vitamin B-1] 100 mg PO BID 30 Days tab 07/30/21 glipiZIDE [Glucotrol] 2.5 mg PO AC-BRKFST 30 Days tab 07/30/21 Amoxic-Pot Clav 875-125Mg 1 tab PO BID 7 Days #14 tab 01/07/23 [Augmentin 875-125] dexAMETHasone [Decadron] 4 mg PO ONCE #1 tablet 01/07/23 Allergies Allergy/AdvReac Type Severity Reaction Status Date / Time Sulfa (Sulfonamide Allergy Rash/Hives Verified 01/07/23 12:12 Antibiotics) Review of Systems ROS Statement: Those systems with pertinent positive or pertinent negative responses have been documented in the HPI. Review of Systems: CONST: Denies fever EYES: Denies blurry vision ENT: Endorses nasal congestion C/V: Denies Chest pain RESP: Denies shortness of breath GI: Denies abdominal pain : Denies dysuria SKIN: Denies rash. MSK: Denies joint pain. NEURO: Denies headache ROS Other: All systems not noted in ROS Statement are negative. Past Medical History Past Medical History: Diabetes Mellitus Additional Past Medical History / Comment(s): gout, hep c (cured), ETOH, CHI History of Any Multi-Drug Resistant Organisms: MRSA Date of last positivie culture/infection: 1985 MDRO Source:: pinky Past Surgical History: Orthopedic Surgery Additional Past Surgical History / Comment(s): celsa knee Past Anesthesia/Blood Transfusion Reactions: No Reported Reaction Past Psychological History: Anxiety, Depression Smoking Status: Never smoker Past Alcohol Use History: Daily Past Drug Use History: Marijuana General Exam - General Exam Comments Initial Comments: General: Appears in no acute distress. HEAD: Normal with no signs of head trauma. EYES: EOMI. ENT: Hearing grossly intact.bilateral maxillary sinus tenderness to palpation. Rhinorrhea. Posterior oropharynx within acceptable limits. No exudates on the tonsils. Uvula midline. No erythema of the posterior oropharynx. Bilateral tympanic membranes appear mildly bulging secondary to fluid behind them with no obvious erythema or other signs of infection at this time. RESPIRATORY: No respiratory distress. Bilateral clear breath sounds. No wheezing. No hypoxia. C/V: Regular rate and rhythm. S1 and S2 auscultated. ABD: Abdomen is nondistended. EXT: No obvious deformity. SKIN: No rashes or lesions observed on exposed skin. NEURO: Alert and oriented. Limitations: no limitations Course Vital Signs 01/07/23 01/07/23 12:10 12:12 Temperature 97.1 F L 98.7 F Pulse Rate 72 91 Respiratory 18 20 Rate Blood Pressure 137/88 130/98 O2 Sat by Pulse 98 98 Oximetry Medical Decision Making - Medical Decision Making Was pt. sent in by a medical professional or institution (MICHAEL Bergeron, PEDIATRIC NP, urgent care, hospital, or prison...) When possible be specific @ -No Did you speak to anyone other than the patient for history (EMS, parent, family, police, friend...)? What history was obtained from this source @ -No Did you review nursing and triage notes (agree or disagree)? Why? @ -I reviewed and agree with nursing and triage notes Were old charts reviewed (outside hosp., previous admission, EMS record, old EKG, old radiological studies, urgent care reports/EKG's, prison records)? Report findings @ -No old charts were reviewed Differential Diagnosis (chest pain, altered mental status, abdominal pain women, abdominal pain men, vaginal bleeding, weakness, fever, dyspnea, syncope, headache, dizziness, GI bleed, back pain, seizure, CVA, palpatations, mental health, musculoskeletal)? @ -Sinus infection, viral infection, viral syndrome, COVID-19 infection, influenza infection, pneumonia, ear infection. This list is not all inclusive. EKG interpreted by me (3pts min.). @ -None done X-rays interpreted by me (1pt min.). @ -Chest x-ray showed no evidence of obvious acute infiltrate or cardiopulmonary process. CT interpreted by me (1pt min.). @ -None done U/S interpreted by me (1pt. min.). @ -None done What testing was considered but not performed or refused? (CT, X-rays, U/S, labs)? Why? @ -None What meds were considered but not given or refused? Why? @ -None Did you discuss the management of the patient with other professionals (professionals i.e. MICHAEL Bergeron, PEDIATRIC NP, lab, RT, psych nurse, child welfare social worker, agricultural education instructor, teacher, planned giving officer, case management manager)? Give summary @ -No Was smoking cessation discussed for >3mins.? @ -No Was critical care preformed (if so, how long)? @ -No Were there social determinants of health that impacted care today? How? (Homelessness, low income, unemployed, alcoholism, drug addiction, transportation, low edu. Level, literacy, decrease access to med. care, correction, rehab)? @ -No Was there de-escalation of care discussed even if they declined (Discuss DNR or withdrawal of care, Hospice)? DNR status @ -No What co-morbidities impacted this encounter? (DM, HTN, Smoking, COPD, CAD, Cancer, CVA, ARF, Chemo, Hep., AIDS, mental health diagnosis, sleep apnea, morbid obesity)? @ -None Was patient admitted / discharged? Hospital course, mention meds given and route, prescriptions, significant lab abnormalities, going to OR and other pertinent info. @ -Based on the patient's presentation and physical exam, I'm concerned for suspected viral syndrome and sinusitis. Cannot rule out COVID-19 infection or other infectious cause. Discussed with the patient, and as he is coughing I would like to obtain a chest x-ray as well as viral swabs. Patient was in agreement with this plan. He'll be treated for pain with analgesia oral medications as well as a dose of oral Decadron. Patient was in agreement this plan. Vital signs are within acceptable limits. Symptoms have been ongoing for last 2 weeks where likely provide antibiotics for sinusitis. Imaging unremarkable. Viral swabs are negative. I discussed results of the patient. He expressed understanding. He will be discharged home with another dose of steroids to take on Monday as well as antibiotics. He is given a dose of Augmentin prior to discharge. I will provide the patient with a prescription for Augmentin, Decadron. I instructed the patient to follow up with their PCP in the next 1-3 days. I provided contact information for follow up with ENT. I explained that the patient should return to the emergency department if they experience any worsening symptoms. Strict return precautions were discussed with the patient. The patient expressed understanding of these instructions. I answered all questions that the patient had. The patient was discharged home in good condition with their prescriptions and follow up information. Undiagnosed new problem with uncertain prognosis? @ -No Drug Therapy requiring intensive monitoring for toxicity (Heparin, Nitro, Insulin, Cardizem)? @ -No Were any procedures done? @ -No Diagnosis/symptom? @ -Sinusitis Acute, or Chronic, or Acute on Chronic? @ -Acute Uncomplicated (without systemic symptoms) or Complicated (systemic symptoms)? @ -complicated Side effects of treatment? @ -none Exacerbation, Progression, or Severe Exacerbation] @ -no Poses a threat to life or bodily function? @ -no - Lab Data Lab Results 01/07/23 Range/Units 12:29 Influenza Type A (PCR) Not Detected (Not Detectd) Influenza Type B (PCR) Not Detected (Not Detectd) RSV (PCR) Not Detected (Not Detectd) SARS-CoV-2 (PCR) Not Detected (Not Detectd) Disposition Clinical Impression: Sinusitis Disposition: HOME SELF-CARE Condition: Good Instructions (If sedation given, give patient instructions): Sinusitis (ED) Prescriptions: Amoxic-Pot Clav 875-125Mg [Augmentin 875-125] 1 tab PO BID 7 Days #14 tab dexAMETHasone [Decadron] 4 mg PO ONCE #1 tablet Is patient prescribed a controlled substance at d/c from ED?: No Referrals: None,Stated [Primary Care Provider] - 1-2 days Nikolay Jones MD [STAFF PHYSICIAN] - 1-2 days Forms: Area PCPs Time of Disposition: 13:21
--- NOTE | 2023-01-07 12:43 | XR ---
EXAMINATION TYPE: XR chest 2V DATE OF EXAM: 01/07/2023 12:39 PM COMPARISON: Chest radiographs from 01/18/2021 TECHNIQUE: XR chest 2V Frontal and lateral views of the chest. CLINICAL INDICATION:Male, 62 years old with history of cough; FINDINGS: Lungs/Pleura: There is no evidence of pleural effusion, focal consolidation, or pneumothorax. Pulmonary vascularity: Unremarkable. Heart/mediastinum: Cardiomediastinal silhouette is unremarkable. Atherosclerotic calcifications are seen in the aorta. Musculoskeletal: No acute osseous pathology. Mild degenerative changes of the thoracic spine. IMPRESSION: No acute cardiopulmonary disease/process.
[2023-01-07] MEDS ORDERED: AMOXIC-POT CLAV 875-125MG 1 EACH TAB PO STA (13:26)
[2023-01-07 13:50] VITALS: BP 121/58; PULSE 65; RESP 18; TEMP 98
== END 2023-01-07 13:50 | disposition home or self-care (01) ==
LOC: EC 12:05
DX: J32.9 Chronic sinusitis, unspecified (principal); F12.90 Cannabis use, unspecified, uncomplicated; E11.9 Type 2 diabetes mellitus without complications; Z88.2 Allergy status to sulfonamides; Z86.59 Personal history of other mental and behavioral disorders; Z20.822 Contact with and (suspected) exposure to COVID-19
CPT/HCPCS: 87636; 71046; 99283; J8540

== ENCOUNTER 2024-01-21 15:49 | Emergency (ER) | payer OTHER ==
--- NOTE | 2024-01-21 16:28 | ED ---
ENT HPI - General Chief complaint: ENT Stated complaint: ETOH, head injury Time Seen by Provider: 01/21/24 16:27 Source: patient, RN notes reviewed Mode of arrival: ambulatory Limitations: no limitations - History of Present Illness Initial comments: 63-year-old male presented to the ER with a chief complaint of a fall. Patient states he has "plugged ears" and frequently loses his "equilibrium". States today while walking he started to lose his balance fell hitting his head. Denies loss consciousness or blood thinner use. Incident happened 1 hour prior to arrival. Patient states witnesses made him come to the ER for evaluation. No other injuries or complaints. - Related Data Previous Rx's Medication Instructions Recorded Folic Acid 1 mg PO DAILY 30 Days #30 tab 09/29/23 Multivitamins, Thera [Multivitamin 1 each PO DAILY 30 Days #30 tab 09/29/23 (formulary)] Pantoprazole [Protonix] 40 mg PO DAILY 30 Days #30 tab 09/29/23 Thiamine [Vitamin B-1] 100 mg PO DAILY 30 Days #30 tab 09/29/23 Allergies Allergy/AdvReac Type Severity Reaction Status Date / Time Sulfa (Sulfonamide Allergy Rash/Hives Verified 01/21/24 15:59 Antibiotics) Review of Systems ROS Statement: Those systems with pertinent positive or pertinent negative responses have been documented in the HPI. ROS Other: All systems not noted in ROS Statement are negative. Past Medical History Past Medical History: Diabetes Mellitus Additional Past Medical History / Comment(s): gout, hep c (cured), ETOH, CHI History of Any Multi-Drug Resistant Organisms: MRSA Date of last positivie culture/infection: 1985 MDRO Source:: pinky Past Surgical History: Orthopedic Surgery Additional Past Surgical History / Comment(s): celsa knee Past Anesthesia/Blood Transfusion Reactions: No Reported Reaction Past Psychological History: Anxiety, Depression Smoking Status: Never smoker Past Alcohol Use History: Daily Past Drug Use History: Marijuana General Exam - General Exam Comments Initial Comments: Visual Physical Exam Vital signs reviewed General: Well-appearing, nontoxic, no acute distress. Head: Normocephalic, atraumatic Eyes: PERRLA, EOMI ENT: Airway patent Chest: Nonlabored breathing Skin: No visual rash, normal skin tone Neuro: Alert and oriented 3 Musculoskeletal: No gross abnormalities Limitations: no limitations General appearance: alert, in no apparent distress Head exam: Present: atraumatic, normocephalic, normal inspection Eye exam: Present: normal appearance, PERRL, EOMI. Absent: scleral icterus, conjunctival injection, periorbital swelling Pupils: Present: normal accommodation ENT exam: Present: normal exam, normal oropharynx, mucous membranes moist, TM's normal bilaterally (cerumen impaction right ear) Neck exam: Present: normal inspection. Absent: tenderness, meningismus, lymphadenopathy Respiratory exam: Present: normal lung sounds bilaterally. Absent: respiratory distress, wheezes, rales, rhonchi, stridor Cardiovascular Exam: Present: regular rate, normal rhythm, normal heart sounds. Absent: systolic murmur, diastolic murmur, rubs, gallop, clicks Extremities exam: Present: normal inspection, full ROM, normal capillary refill. Absent: tenderness, pedal edema, joint swelling, calf tenderness Neurological exam: Present: alert, oriented X3, CN II-XII intact Skin exam: Present: warm, dry, intact, normal color. Absent: rash Course Vital Signs 01/21/24 01/21/24 15:56 18:05 Temperature 98.2 F 98.1 F Pulse Rate 88 76 Respiratory 16 18 Rate Blood Pressure 129/73 136/68 O2 Sat by Pulse 94 L 99 Oximetry Medical Decision Making - Medical Decision Making I performed the quick note portion of this chart. Electronically signed by Nella Espinoza PA-C Was pt. sent in by a medical professional or institution (MICHAEL Bergeron, EXTERMINATION SUPERVISOR, urgent care, hospital, or fpc...) When possible be specific @ -No Did you speak to anyone other than the patient for history (EMS, parent, family, police, friend...)? What history was obtained from this source @ -No Did you review nursing and triage notes (agree or disagree)? Why? @ -I reviewed and agree with nursing and triage notes Were old charts reviewed (outside hosp., previous admission, EMS record, old EKG, old radiological studies, urgent care reports/EKG's, fpc records)? Report findings @ -No old charts were reviewed Differential Diagnosis (chest pain, altered mental status, abdominal pain women, abdominal pain men, vaginal bleeding, weakness, fever, dyspnea, syncope, headache, dizziness, GI bleed, back pain, seizure, CVA, palpatations, mental health, musculoskeletal)? @ -Fracture, dislocation, contusion, hematoma, intracranial hemorrhage, concussion, abrasion, laceration this list does not like to be all-inclusive EKG interpreted by me (3pts min.). @ -None done X-rays interpreted by me (1pt min.). @ -None done CT interpreted by me (1pt min.). @ -CT brain negative for acute intracranial process. U/S interpreted by me (1pt. min.). @ -None done What testing was considered but not performed or refused? (CT, X-rays, U/S, labs)? Why? @ -None What meds were considered but not given or refused? Why? @ -None Did you discuss the management of the patient with other professionals (professionals i.e. , PA, EXTERMINATION SUPERVISOR, lab, RT, psych nurse, long term care social worker, egg buyer, teacher, corporate banking officer, manager of case management)? Give summary @ -No Was smoking cessation discussed for >3mins.? @ -No Was critical care preformed (if so, how long)? @ -No Were there social determinants of health that impacted care today? How? (Homelessness, low income, unemployed, alcoholism, drug addiction, transportation, low edu. Level, literacy, decrease access to med. care, half-way, rehab)? @ -No Was there de-escalation of care discussed even if they declined (Discuss DNR or withdrawal of care, Hospice)? DNR status @ -No What co-morbidities impacted this encounter? (DM, HTN, Smoking, COPD, CAD, Cancer, CVA, ARF, Chemo, Hep., AIDS, mental health diagnosis, sleep apnea, morbid obesity)? @ -None Was patient admitted / discharged? Hospital course, mention meds given and route, prescriptions, significant lab abnormalities, going to OR and other pertinent info. @ -Discharge. 63-year-old male presenting to the ER with a chief complaint of fall with head injury. Patient originally seen as a quick note. Patient denies loss of consciousness or blood thinner use. History and physical exam completed. Vitals within normal limits. No acute neurological findings on exam. GCS of 15. Upper and lower extremities neurovascular intact. Patient was dancing in exam room as he was extremely eager for discharge and attempting to show he was "ok" for discharge. CT brain negative for acute intracranial process. Upon reevaluation, patient remained eager for discharge. Strict return parameters discussed. Patient discharged in stable condition. Patient verbally expressed understanding agree with care plan. Case discussed with ED attending, Dr. Potts. Undiagnosed new problem with uncertain prognosis? @ -No Drug Therapy requiring intensive monitoring for toxicity (Heparin, Nitro, Insulin, Cardizem)? @ -No Were any procedures done? @ -No Diagnosis/symptom? @ -Fall Acute, or Chronic, or Acute on Chronic? @ -Acute Uncomplicated (without systemic symptoms) or Complicated (systemic symptoms)? @ -Uncomplicated Side effects of treatment? @ -No Exacerbation, Progression, or Severe Exacerbation? @ -No Poses a threat to life or bodily function? How? (Chest pain, [place], [place], pneumonia, PE, COPD, DKA, ARF, appy, cholecystitis, CVA, Diverticulitis, Homicidal, Suicidal, threat to staff... and all critical care pts) @ -No - Radiology Data Radiology results: report reviewed, image reviewed Disposition Clinical Impression: Fall Disposition: HOME SELF-CARE Condition: Stable Additional Instructions: PCP and ENT. Return to the ER for any new or worsening concerns. Is patient prescribed a controlled substance at d/c from ED?: No Referrals: None,Stated [Primary Care Provider] - 1-2 days Nikolay Jones MD [STAFF PHYSICIAN] - 1-2 days Forms: Area PCPs Time of Disposition: 17:57
--- NOTE | 2024-01-21 17:43 | CT ---
EXAMINATION TYPE: CT brain wo con CT DLP: 1180.4 mGycm, Automated exposure control for dose reduction was used. DATE OF EXAM: 01/21/2024 5:29 PM COMPARISON: 05/30/2022. CLINICAL INDICATION: Male, 63 years old with history of head injury, Head injury from fall TECHNIQUE: Brain: Axial CT images of the brain were obtained with coronal and sagittal reformats created and rev iewed. Contrast used: None. Oral contrast used: None. FINDINGS: Brain: Extra-axial spaces: No abnormal extra-axial fluid collections. Ventricular system: Within normal limits Cerebral parenchyma: No acute intraparenchymal hemorrhage or mass effect. The watt-white junction is well differentiated. Cerebellum: Unremarkable. Mass effect: No evidence of midline shift. Intracranial vasculature: Atherosclerotic calcifications of the intracranial vessels. Soft tissues: Normal. Calvarium/osseous structures: No depressed skull fracture. Paranasal sinuses and mastoid air cells: Mild scattered paranasal sinus disease. Visualized orbits: Orbital contents are intact. IMPRESSION: No acute intracranial process. [facility], , 01/21/2024 5:40 PM
[2024-01-21 18:14] VITALS: BP 136/68; PULSE 76; RESP 18; TEMP 98.1
== END 2024-01-21 18:09 | disposition home or self-care (01) ==
LOC: EC 15:49
CPT/HCPCS: 70450; 99284

== ENCOUNTER 2024-07-17 12:53 | Observation (INO) | payer OTHER ==
[2024-07-17 13:00] LABS: Glucose,Whole Blood 205 mg/dL (70-110)
--- NOTE | 2024-07-17 13:52 | ED ---
Psych HPI - General Chief Complaint: Psychiatric Symptoms Stated Complaint: Fall-suicidal ideations Time Seen by Provider: 07/17/24 12:56 Source: patient, RN notes reviewed Mode of arrival: ambulatory Limitations: no limitations - History of Present Illness Initial Comments: 64-year-old male presents emergency department for multiple complaints. Patient states he is currently depressed, suicidal. Patient states that he is having worsening depression and is currently homeless. Patient states he also had a fall this morning states he lost his balance striking his head. He is on no blood thinners does complain of moderate headache. Patient denies any visual disturbance no focal weakness. Patient states he also just felt generalized weak, labile blood sugars. Patient states his blood sugar has been as high as 300. Patient denies any dysuria patient did have some diarrhea this morning. Patient does occasionally use alcohol he has not had any drinks in 4 days. Denies illicit drug use. Denies being homicidal. - Related Data Previous Rx's Medication Instructions Recorded Folic Acid 1 mg PO DAILY 30 Days #30 tab 09/29/23 Multivitamins, Thera [Multivitamin 1 each PO DAILY 30 Days #30 tab 09/29/23 (formulary)] Pantoprazole [Protonix] 40 mg PO DAILY 30 Days #30 tab 09/29/23 Thiamine [Vitamin B-1] 100 mg PO DAILY 30 Days #30 tab 09/29/23 Allergies Allergy/AdvReac Type Severity Reaction Status Date / Time Sulfa (Sulfonamide Allergy Rash/Hives Verified 07/17/24 12:59 Antibiotics) Review of Systems ROS Statement: Those systems with pertinent positive or pertinent negative responses have been documented in the HPI. ROS Other: All systems not noted in ROS Statement are negative. Past Medical History Past Medical History: Diabetes Mellitus Additional Past Medical History / Comment(s): gout, hep c (cured), ETOH, CHI History of Any Multi-Drug Resistant Organisms: MRSA Date of last positivie culture/infection: 1985 MDRO Source:: pinky Past Surgical History: Orthopedic Surgery Additional Past Surgical History / Comment(s): celsa knee Past Anesthesia/Blood Transfusion Reactions: No Reported Reaction Past Psychological History: Anxiety, Depression Smoking Status: Never smoker Past Alcohol Use History: Daily Past Drug Use History: Marijuana General Exam Limitations: no limitations General appearance: alert, in no apparent distress Head exam: Present: atraumatic, normocephalic. Absent: normal inspection (Abrasion on frontal aspect) Eye exam: Present: normal appearance, PERRL, EOMI. Absent: scleral icterus, conjunctival injection, periorbital swelling ENT exam: Present: normal exam, normal oropharynx, mucous membranes moist Neck exam: Present: normal inspection, full ROM. Absent: tenderness, meningismus, lymphadenopathy Respiratory exam: Present: normal lung sounds bilaterally. Absent: respiratory distress, wheezes, rales, rhonchi, stridor Cardiovascular Exam: Present: regular rate, normal rhythm, normal heart sounds. Absent: systolic murmur, diastolic murmur, rubs, gallop, clicks GI/Abdominal exam: Present: soft, normal bowel sounds. Absent: distended, tenderness, guarding, rebound, rigid Neurological exam: Present: alert, oriented X3, CN II-XII intact Psychiatric exam: Present: depressed, flat affect Course Vital Signs 07/17/24 12:55 Temperature 98.3 F Pulse Rate 102 H Respiratory 20 Rate Blood Pressure 180/73 O2 Sat by Pulse 99 Oximetry Medical Decision Making - Medical Decision Making Was pt. sent in by a medical professional or institution (, PA, TOWNSHIP SUPERVISOR, urgent care, hospital, or long term...) When possible be specific @ -No Did you speak to anyone other than the patient for history (EMS, parent, family, police, friend...)? What history was obtained from this source @ -No Did you review nursing and triage notes (agree or disagree)? Why? @ -I reviewed and agree with nursing and triage notes Were old charts reviewed (outside hosp., previous admission, EMS record, old EKG, old radiological studies, urgent care reports/EKG's, long term records)? Report findings @ -No old charts were reviewed Differential Diagnosis (chest pain, altered mental status, abdominal pain women, abdominal pain men, vaginal bleeding, weakness, fever, dyspnea, syncope, headache, dizziness, GI bleed, back pain, seizure, CVA, palpatations, mental health, musculoskeletal)? @ -Differential Weakness: Hypoglycemia, shock, sepsis, hyponatremia, anemia, infection, [place], ETOH, adverse medicine reaction, overdose, stroke, this is not meant to be an all-inclusive list. Differential Mental Health Depression, anxiety, bipolar, psychosis, schizophrenia, borderline personality, situational depression, adjustment disorder, behavioral disorder, brain tumor, malingering, substance abuse, encephalopathy, medication reaction, dementia, hypothyroidism, degenerative neurologic disorder, lupus.... This is not meant to be all-inclusive list EKG interpreted by me (3pts min.). @ -None X-rays interpreted by me (1pt min.). @ -None done CT interpreted by me (1pt min.). @ -None done U/S interpreted by me (1pt. min.). @ -None done What testing was considered but not performed or refused? (CT, X-rays, U/S, labs)? Why? @ -None What meds were considered but not given or refused? Why? @ -None Did you discuss the management of the patient with other professionals (professionals i.e. , PA, TOWNSHIP SUPERVISOR, lab, RT, psych nurse, social services technician, watermelon inspector, teacher, senior major gifts officer, housing case manager)? Give summary @ -EMH for admission Was smoking cessation discussed for >3mins.? @ -No Was critical care preformed (if so, how long)? @ -No Were there social determinants of health that impacted care today? How? (Homelessness, low income, unemployed, alcoholism, drug addiction, transportation, low edu. Level, literacy, decrease access to med. care, usp, rehab)? @ -No Was there de-escalation of care discussed even if they declined (Discuss DNR or withdrawal of care, Hospice)? DNR status @ -No What co-morbidities impacted this encounter? (DM, HTN, Smoking, COPD, CAD, Cancer, CVA, ARF, Chemo, Hep., AIDS, mental health diagnosis, sleep apnea, mo rbid obesity)? @ -Alcohol abuse Was patient admitted / discharged? Hospital course, mention meds given and route, prescriptions, significant lab abnormalities, going to OR and other pertinent info. @ -The patient's found to have magnesium 1.1, patient does have thrombocytopenia this more likely from alcohol abuse. Patient does have a history of with placed on CIWA, Ativan withdrawal protocol, patient with psychiatric consult. Undiagnosed new problem with uncertain prognosis? @ -No Drug Therapy requiring intensive monitoring for toxicity (Heparin, Nitro, Insulin, Cardizem)? @ -No Were any procedures done? @ -No Diagnosis/symptom? @ -Alcohol abuse, thrombocytopenia, hypomagnesemia, depression, suicide lesion Acute, or Chronic, or Acute on Chronic? @ -Acute Uncomplicated (without systemic symptoms) or Complicated (systemic symptoms)? @ -Complicated Side effects of treatment? @ -No Exacerbation, Progression, or Severe Exacerbation? @ -No Poses a threat to life or bodily function? How? (Chest pain, [place], [place], pneumonia, PE, COPD, DKA, ARF, appy, cholecystitis, CVA, Diverticulitis, Homicidal, Suicidal, threat to staff... and all critical care pts) @ -Yes suicidal - Lab Data Result diagrams: 07/17/24 13:53 07/17/24 13:53 Lab Results 07/17/24 07/17/24 07/17/24 Range/Units 12:59 13:53 13:53 WBC 5.0 (3.8-10.6) k/uL RBC 3.76 L (4.30-5.90) m/uL Hgb 12.5 L (13.0-17.5) gm/dL Hct 38.0 L (39.0-53.0) % MCV 101.1 H (80.0-100.0) fL MCH 33.1 (25.0-35.0) pg MCHC 32.8 (31.0-37.0) g/dL RDW 13.1 (11.5-15.5) % Plt Count 70 L (150-450) k/uL MPV 8.9 Neutrophils % 77 % Lymphocytes % 10 % Monocytes % 11 % Eosinophils % 1 % Basophils % 0 % Neutrophils # 3.9 (1.3-7.7) k/uL Lymphocytes # 0.5 L (1.0-4.8) k/uL Monocytes # 0.5 (0-1.0) k/uL Eosinophils # 0.0 (0-0.7) k/uL Basophils # 0.0 (0-0.2) k/uL Sodium 137 (137-145) mmol/L Potassium 4.4 (3.5-5.1) mmol/L Chloride 96 L (98-107) mmol/L Carbon Dioxide 23 (22-30) mmol/L Anion Gap 18 mmol/L BUN 17 (9-20) mg/dL Creatinine 0.72 (0.66-1.25) mg/dL Est GFR (CKD-EPI)AfAm >90 (>60 ml/min/1.73 sqM) Est GFR (CKD-EPI)NonAf >90 (>60 ml/min/1.73 sqM) Glucose 177 H (74-99) mg/dL POC Glucose (mg/dL) 205 H (70-110) mg/dL POC Glu Land Development Project Manager ID Trang Mendes Calcium 9.8 (8.4-10.2) mg/dL Magnesium 1.1 L (1.6-2.3) mg/dL Total Bilirubin 1.4 H (0.2-1.3) mg/dL AST 160 H (17-59) U/L ALT 77 H (4-49) U/L Alkaline Phosphatase 93 (38-126) U/L Total Protein 8.6 H (6.3-8.2) g/dL Albumin 5.0 (3.5-5.0) g/dL Urine Color Urine Appearance (Clear) Urine pH (5.0-8.0) Ur Specific Lynd (1.001-1.035) Urine Protein (Negative) Urine Glucose (UA) (Negative) Urine Ketones (Negative) Urine Blood (Negative) Urine Nitrite (Negative) Urine Bilirubin (Negative) Urine Urobilinogen (<2.0) mg/dL Ur Leukocyte Esterase (Negative) Urine RBC (0-5) /hpf Urine WBC (0-5) /hpf Urine Bacteria (None) /hpf Urine Mucus (None) /hpf Urine Opiates Screen (NotDetected) Ur Oxycodone Screen (NotDetected) Urine Methadone Screen (NotDetected) Ur Barbiturates Screen (NotDetected) U Tricyclic Antidepress (NotDetected) Ur Phencyclidine Scrn (NotDetected) Ur Amphetamines Screen (NotDetected) U Methamphetamines Scrn (NotDetected) U Benzodiazepines Scrn (NotDetected) Urine Cocaine Screen (NotDetected) U Marijuana (THC) Screen (NotDetected) 07/17/24 Range/Units 15:24 WBC (3.8-10.6) k/uL RBC (4.30-5.90) m/uL Hgb (13.0-17.5) gm/dL Hct (39.0-53.0) % MCV (80.0-100.0) fL MCH (25.0-35.0) pg MCHC (31.0-37.0) g/dL RDW (11.5-15.5) % Plt Count (150-450) k/uL MPV Neutrophils % % Lymphocytes % % Monocytes % % Eosinophils % % Basophils % % Neutrophils # (1.3-7.7) k/uL Lymphocytes # (1.0-4.8) k/uL Monocytes # (0-1.0) k/uL Eosinophils # (0-0.7) k/uL Basophils # (0-0.2) k/uL Sodium (137-145) mmol/L Potassium (3.5-5.1) mmol/L Chloride (98-107) mmol/L Carbon Dioxide (22-30) mmol/L Anion Gap mmol/L BUN (9-20) mg/dL Creatinine (0.66-1.25) mg/dL Est GFR (CKD-EPI)AfAm (>60 ml/min/1.73 sqM) Est GFR (CKD-EPI)NonAf (>60 ml/min/1.73 sqM) Glucose (74-99) mg/dL POC Glucose (mg/dL) (70-110) mg/dL POC Glu Land Development Project Manager ID Calcium (8.4-10.2) mg/dL Magnesium (1.6-2.3) mg/dL Total Bilirubin (0.2-1.3) mg/dL AST (17-59) U/L ALT (4-49) U/L Alkaline Phosphatase (38-126) U/L Total Protein (6.3-8.2) g/dL Albumin (3.5-5.0) g/dL Urine Color Colorless Urine Appearance Clear (Clear) Urine pH 5.5 (5.0-8.0) Ur Specific Lynd 1.012 (1.001-1.035) Urine Protein Negative (Negative) Urine Glucose (UA) 2+ H (Negative) Urine Ketones 2+ H (Negative) Urine Blood Trace H (Negative) Urine Nitrite Negative (Negative) Urine Bilirubin Negative (Negative) Urine Urobilinogen <2.0 (<2.0) mg/dL Ur Leukocyte Esterase Negative (Negative) Urine RBC 1 (0-5) /hpf Urine WBC <1 (0-5) /hpf Urine Bacteria Rare H (None) /hpf Urine Mucus Rare H (None) /hpf Urine Opiates Screen Not Detected (NotDetected) Ur Oxycodone Screen Not Detected (NotDetected) Urine Methadone Screen Not Detected (NotDetected) Ur Barbiturates Screen Not Detected (NotDetected) U Tricyclic Antidepress Not Detected (NotDetected) Ur Phencyclidine Scrn Not Detected (NotDetected) Ur Amphetamines Screen Not Detected (NotDetected) U Methamphetamines Scrn Not Detected (NotDetected) U Benzodiazepines Scrn Not Detected (NotDetected) Urine Cocaine Screen Not Detected (NotDetected) U Marijuana (THC) Screen Detected H (NotDetected) Disposition Clinical Impression: Hypomagnesemia, Thrombocytopenia, Depression, Suicidal ideation, Alcohol use disorder Disposition: ADMITTED IP TO THIS HOSP Condition: Fair Referrals: None,Stated [Primary Care Provider] - 1-2 days Time of Disposition: 16:05
[2024-07-17] MEDS: SODIUM CHLORIDE 0.9% 1,000 ML IV ONE (14:03)
[2024-07-17 14:08] LABS: Basophils % (A) 0 %; Eosinophils % (A) 1 %; HGB 12.5 gm/dL (13.0-17.5); Lymphocytes # (A) 0.5 k/uL (1.0-4.8); Lymphocytes % (A) 10 %; MCH 33.1 pg (25.0-35.0); MCHC 32.8 g/dL (31.0-37.0); MCV 101.1 fL (80.0-100.0); Mean Platelet Volume 8.9; Monocytes # (A) 0.5 k/uL (0-1.0); Monocytes % (A) 11 %; Neutrophils # (A) 3.9 k/uL (1.3-7.7); Neutrophils % (A) 77 %; RBC 3.76 m/uL (4.30-5.90); RDW 13.1 % (11.5-15.5)
[2024-07-17 14:15] LABS: ALT 77 U/L (4-49); AST 160 U/L (17-59); African American GFR (CKD) >90 (>60 ml/min/1.73 sqM); Alkaline Phosphatase 93 U/L (38-126); Anion Gap 18 mmol/L; Blood Urea Nitrogen 17 mg/dL (9-20); Calcium 9.8 mg/dL (8.4-10.2); Carbon Dioxide 23 mmol/L (22-30); Chloride 96 mmol/L (98-107); Glucose 177 mg/dL (74-99); Magnesium 1.1 mg/dL (1.6-2.3); Non-African American GFR(CKD) >90 (>60 ml/min/1.73 sqM); Potassium 4.4 mmol/L (3.5-5.1); Sodium 137 mmol/L (137-145); Total Bilirubin 1.4 mg/dL (0.2-1.3); Total Protein 8.6 g/dL (6.3-8.2)
--- NOTE | 2024-07-17 15:27 | CT ---
EXAMINATION TYPE: CT brain rhys wo con DATE OF EXAM: 07/17/2024 COMPARISON: 05/30/2022 CLINICAL INDICATION: Male, 64 years old with history of fall; PHH, pain after fall TECHNIQUE: CT scan of the head and cervical spine are performed without contrast. CT DLP: 1347.[address] CTDI: mGy Automated exposure control for dose reduction was used. Findings: Head CT: Ventricles, basal cisterns and sulci over convexities are moderately enlarged consistent with moderat e generalized atrophy. There is mild decreased density in the periventricular white matter consistent with mild chronic isch emic white matter demyelination. There is no mass effect or shift in midline structures. There is no acute intra or extra-axial hemorrhage. Posterior fossa including the brainstem, fourth ventricle and cerebellar pontine angles are grossly n ormal. The intraorbital contents appear normal and symmetric. Visualized paranasal sinuses are well aerated. CT cervical spine: Craniovertebral junction relationships and prevertebral soft tissues are normal. The cervical vertebral segments are normal in height and alignment and there is no fracture subluxati on. There is moderate to marked disc space narrowing and spondylosis from C3 through T1 indicating modera te to marked degenerative disc disease. There is moderate to marked degeneration of the uncovertebral joints in the mid and lower cervical sp ine. There is minimal facet degeneration. There is no bony encroachment of the cervical canal. There is multilevel bony encroachment of the gerald ral foramina as follows, moderate to severe at C3-4 on the left, mild to moderate at C4-5 bilaterally , moderate to severe at C5-6 bilaterally and mild at C6-7 bilaterally. IMPRESSION: 1. Head CT: No acute bleed or mass effect. Mild senescent changes. 2. CT cervical spine: No acute trauma. Advanced degenerative disc disease and osteoarthritis of the c ervical spine as described above. [facility], , 07/17/2024 3:24 PM
[2024-07-17 15:31] LABS: Appearance,Urine Clear (Clear); Bacteria,Urine Rare /hpf; Bilirubin,Urine Negative (Negative); Blood,Urine Trace (Negative); Color,Urine Colorless; Glucose,Urine (UA) 2+ (Negative); Leukocyte Esterase,Urine Negative (Negative); Mucus,Urine Rare /hpf; Nitrite,Urine Negative (Negative); PH, Urine 5.5 (5.0-8.0); Protein,Urine Negative (Negative); RBC,Urine 1 /hpf (0-5); Specific Gravity,Urine 1.012 (1.001-1.035); Urobilinogen,Urine <2.0 mg/dL (<2.0); WBC,Urine <1 /hpf (0-5)
[2024-07-17 15:42] LABS: Platelet Count 70 k/uL (150-450)
[2024-07-17] MEDS ORDERED: LORazepam 0.5 MG TAB PO PRN (15:48)
[2024-07-17] MEDS ORDERED: LORazepam 1 MG TAB PO PRN (15:48)
[2024-07-17] MEDS ORDERED: LORazepam 2 MG/ML INJ IV PRN ×2 (15:48)
[2024-07-17 15:54] LABS: Ketones,Urine 2+ (Negative)
[2024-07-17] MEDS ORDERED: NALOXONE 0.4 MG/ML 1 ML VIAL IV PRN (16:06)
[2024-07-17] MEDS ORDERED: ONDANSETRON 4 MG/2 ML VIAL IVP PRN (16:06)
[2024-07-17 16:08] LABS: Amphetamine Screen,Urine Not Detected (NotDetected); Barbiturate Screen,Urine Not Detected (NotDetected); Benzodiazepines Screen,Urine Not Detected (NotDetected); Cocaine Screen,Urine Not Detected (NotDetected); Methadone Screen, Urine Not Detected (NotDetected); Opiate Screen,Urine Not Detected (NotDetected); Oxycodone Screen, Urine Not Detected (NotDetected); Phencyclidine Screen,Urine Not Detected (NotDetected); Tricyclic Antidepressant,Urine Not Detected (NotDetected); Urn Cannabinoid Scrn Detected (NotDetected)
[2024-07-17] MEDS: MAGNESIUM SULFATE-D5W PMX 1 GM in DEXTROSE/WATER 1 100ML.BAG IVPB SCH (17:36)
[2024-07-17] MEDS: LORazepam 2 MG/ML INJ IV PRN (18:06)
[2024-07-17 18:21] LABS: Glucose,Whole Blood 140 mg/dL (70-110)
[2024-07-17] MEDS: levETIRAcetam IV 500 MG/5 ML VIAL IVP SCH (23:36)
[2024-07-18] MEDS ORDERED: LORazepam 1 MG/0.5 ML VIAL IV PRN ×2 (08:11→08:12)
[2024-07-18] MEDS: THIAMINE 100 MG TAB PO SCH (10:20)
[2024-07-18] MEDS ORDERED: DEXTROSE 50% SYRINGE 50 ML IVP PRN ×2 (10:32)
[2024-07-18] MEDS: ACETAMINOPHEN TAB 325 MG TAB PO PRN (10:37)
[2024-07-18 11:27] LABS: ALT 60 U/L (4-49); AST 118 U/L (17-59); African American GFR (CKD) >90 (>60 ml/min/1.73 sqM); Albumin 4.4 g/dL (3.5-5.0); Albumin/Globulin Ratio 1.3; Alcohol <10 mg/dL; Alkaline Phosphatase 72 U/L (38-126); Blood Urea Nitrogen 14 mg/dL (9-20); Calcium 9.4 mg/dL (8.4-10.2); Carbon Dioxide 26 mmol/L (22-30); Chloride 96 mmol/L (98-107); Globulin 3.3 g/dL; Glucose 155 mg/dL (74-99); Magnesium 1.6 mg/dL (1.6-2.3); Non-African American GFR(CKD) >90 (>60 ml/min/1.73 sqM); Potassium 4.2 mmol/L (3.5-5.1); Total Bilirubin 1.6 mg/dL (0.2-1.3); Total Protein 7.7 g/dL (6.3-8.2)
[2024-07-18 12:19] LABS: Glucose,Whole Blood 139 mg/dL (70-110)
[2024-07-18 12:26] LABS: Anion Gap 12 mmol/L; Sodium 134 mmol/L (137-145)
[2024-07-18] MEDS: INSULIN LISPRO (HumaLOG) 100 UNIT/ML 10 mL VL SQ SCH (12:34)
[2024-07-18] MEDS ORDERED: Magnesium Replacement Protocol 1 EACH MISC MISCELLANE PRN (13:53)
--- NOTE | 2024-07-18 13:54 | P.HPIM ---
History of Present Illness H&P Date: 07/18/24 This is a 64-year-old male with medical history significant for chronic alcoholism, diabetes mellitus, gout, depression patient comes to the hospital with complaints of suicidal ideations and worsening depression since becoming homeless earlier this week. He had a fall yesterday morning causing him to lose balance and hit his head. He presents to the ER for further evaluation. Patient was complaining of a moderate headache, without any visual changes. He has not been having any hallucinations or focal weakness. Reports elevated blood sugars states he was supposed to be on injection but he has been unable to get his medication. He has not been in to see a family doctor in a long time. Patient states that he has 1 family member who is unable to take him in. He states that he was kicked out of his house and lost all of his belongings and clothing etc. He since has been homeless. Patient does report to drinking alcohol about every other day. He was noted to have a 2-minute long seizure while in the emergency center, per nursing reports patient had a 2-minute long episode of shaking and rigid muscles. He was given as needed Ativan with cessation of the seizure. Patient was then noted to have a second seizure. Neurology was consulted and patient was started prophylactically on Keppra and loading dose was given. Initial labs reveal white blood cell count hemoglobin 12.5, platelet count of 70, sodium 137, BUN of 18, creatinine 0.72 magnesium 1.1, total bili 1.4, AST of 160 ALT of 77. Blood glucose is elevated in the 140s urinalysis was negative for infection. His urine drug toxicology shows positive for marijuana with a serum alcohol level less than 10. ELAINAID was nega tive admitted to the hospital under internal medicine with a consult placed to neurology. Patient will need to see physical therapy. He continues to report suicidal thoughts and has a process safety manager at the bedside and is currently pending psychiatric evaluation. REVIEW OF SYSTEMS: CONSTITUTIONAL: No fever, no malaise, no fatigue. HEENT: No recent visual problems or hearing problems. Denied any sore throat. CARDIOVASCULAR: No chest pain, orthopnea, PND, no palpitations, no syncope. PULMONARY: No shortness of breath, no cough, no hemoptysis. GASTROINTESTINAL: No diarrhea, no nausea, no vomiting, no abdominal pain. NEUROLOGICAL: No headaches, no weakness, no numbness. HEMATOLOGICAL: Denies any bleeding or petechiae. GENITOURINARY: Denies any burning micturition, frequency, or urgency. MUSCULOSKELETAL/RHEUMATOLOGICAL: Denies any joint pain, swelling, or any muscle pain. ENDOCRINE: Denies any polyuria or polydipsia. The rest of the 14-point review of systems is negative. PHYSICAL EXAMINATION: GENERAL: The patient is alert and oriented x3, not in any acute distress. Well d eveloped, well nourished. HEENT: Pupils are round and equally reacting to light. EOMI. No scleral icterus. No conjunctival pallor. Normocephalic, atraumatic. No pharyngeal erythema. No thyromegaly. CARDIOVASCULAR: S1 and S2 present. No murmurs, rubs, or gallops. PULMONARY: Chest is clear to auscultation, no wheezing or crackles. ABDOMEN: Soft, nontender, nondistended, normoactive bowel sounds. No palpable organomegaly. MUSCULOSKELETAL: No joint swelling or deformity. EXTREMITIES: No cyanosis, clubbing, or pedal edema. NEUROLOGICAL: Gross neurological examination did not reveal any focal deficits. SKIN: No rashes. Assessment and Plan Generalized fall and weakness likely from chronic medical debility and alcoholism Seizure x 2 likely alcohol withdrawal seizure Thrombocytopenia from alcoholism Diabetes Mellitus type 2 Depression and suicidal ideations Hypomagnesemia Alcoholic hepatitis Chronic alcoholism Marijuana use GI prophylaxis Full Code Plan Neurology on consultation the patient was started prophylactically on Keppra twice daily with loading dose given Continue IV Ativan CIWA protocol Pending psychiatric evaluation and patient has a process safety manager in place and cont inue one-to-one suicidal precautions Humalog Accu-Cheks ACHS and sliding scale insulin Supplement magnesium PT/OT consultation The impression and plan of care has been dictated by Shirley Patiño Nurse Practitioner as directed. Dr. Samantha MD I have performed a history and physical examination and medical decision making of this patient, discussed the same with the dictator, and agree with the dictators assessment and plan as written, documented as a scribe. Based on total visit time, I have performed more than 50% of this visit. Past Medical History Past Medical History: Diabetes Mellitus Additional Past Medical History / Comment(s): gout, hep c (cured), ETOH, CHI History of Any Multi-Drug Resistant Organisms: MRSA Date of last positivie culture/infection: 1985 MDRO Source:: pinky Past Surgical History: Orthopedic Surgery Additional Past Surgical History / Comment(s): celsa knee Past Anesthesia/Blood Transfusion Reactions: No Reported Reaction Past Psychological History: Anxiety, Depression Smoking Status: Never smoker Past Alcohol Use History: Daily Additional Past Alcohol Use History / Comment(s): Pt states that he only drinks "a couple beers every day" Past Drug Use History: Marijuana Medications and Allergies Home Medications Medication Instructions Recorded Confirmed Type No Known Home Medications 07/17/24 07/17/24 History Allergies Allergy/AdvReac Type Severity Reaction Status Date / Time Sulfa (Sulfonamide Allergy Rash/Hives Verified 07/17/24 16:35 Antibiotics) Physical Exam Vitals: Vital Signs Temp Pulse Resp BP Pulse Ox 07/18/24 07:07 97.9 F 66 18 119/76 99 07/18/24 06:00 97.9 F 68 18 112/78 98 07/18/24 02:30 73 16 120/86 99 07/17/24 20:17 90 112/83 99 07/17/24 19:34 103 H 115/83 100 07/17/24 18:00 93 18 155/86 99 07/17/24 16:44 89 18 162/94 99 Intake and Output 07/17/24 07/18/24 07/18/24 22:59 06:59 14:59 Other: Voiding Method Toilet Weight 58.967 kg Results CBC & Chem 7: 07/17/24 13:53 07/18/24 10:57 Labs: Abnormal Lab Results - Last 24 Hours (Table) 07/17/24 07/17/24 07/17/24 Range/Units 13:53 13:53 15:24 RBC 3.76 L (4.30-5.90) m/uL Hgb 12.5 L (13.0-17.5) gm/dL Hct 38.0 L (39.0-53.0) % MCV 101.1 H (80.0-100.0) fL Plt Count 70 L (150-450) k/uL Lymphocytes # 0.5 L (1.0-4.8) k/uL Sodium (137-145) mmol/L Chloride 96 L (98-107) mmol/L Glucose 177 H (74-99) mg/dL POC Glucose (mg/dL) (70-110) mg/dL Magnesium 1.1 L (1.6-2.3) mg/dL Total Bilirubin 1.4 H (0.2-1.3) mg/dL AST 160 H (17-59) U/L ALT 77 H (4-49) U/L Total Protein 8.6 H (6.3-8.2) g/dL Urine Glucose (UA) 2+ H (Negative) Urine Ketones 2+ H (Negative) Urine Blood Trace H (Negative) Urine Bacteria Rare H (None) /hpf Urine Mucus Rare H (None) /hpf U Marijuana (THC) Screen Detected H (NotDetected) 07/17/24 07/18/24 07/18/24 Range/Units 18:19 10:57 12:17 RBC (4.30-5.90) m/uL Hgb (13.0-17.5) gm/dL Hct (39.0-53.0) % MCV (80.0-100.0) fL Plt Count (150-450) k/uL Lymphocytes # (1.0-4.8) k/uL Sodium 134 L (137-145) mmol/L Chloride 96 L (98-107) mmol/L Glucose 155 H (74-99) mg/dL POC Glucose (mg/dL) 140 H 139 H (70-110) mg/dL Magnesium (1.6-2.3) mg/dL Total Bilirubin 1.6 H (0.2-1.3) mg/dL AST 118 H (17-59) U/L ALT 60 H (4-49) U/L Total Protein (6.3-8.2) g/dL Urine Glucose (UA) (Negative) Urine Ketones (Negative) Urine Blood (Negative) Urine Bacteria (None) /hpf Urine Mucus (None) /hpf U Marijuana (THC) Screen (NotDetected) Thrombosis Risk Factor Assmnt - Choose All That Apply Any of the Below Risk Factors Present?: No Other Risk Factors: No Other congenital or acquired thrombophilia - If yes, enter type in comment: No Thrombosis Risk Factor Assessment Level: Very Low Risk Assessment and Plan Time with Patient: Less than 30
--- NOTE | 2024-07-18 14:31 | P.CN ---
Psychiatric Consult - . Consult date: 07/18/24 Consult:: 07/18/24 14:25 IDENTIFYING DATA: This patient is a 64-year-old male, recently homeless REASON FOR REFERRAL: Psychiatry was consulted for depression, SI HISTORY OF PRESENT ILLNESS: The patient presented to the hospital with suicidal ideations. Patient reportedly has a history of alcohol use with his last drink being 4 days ago. Patient reportedly was recently homeless and had to give up his dog. Attempted to see patient however he was off the unit for EEG. Will reattempt tomorrow. PAST PSYCHIATRIC HISTORY: Patient has a history of MDD, alcohol use disorder. Patient denies being on any psychiatric medications. Patient was last admitted to the [facility] back in 2021. PAST MEDICAL HISTORY: Diabetes. ALLERGIES: as per EMR. CHEMICAL DEPENDENCY HISTORY: as per HPI. IMPRESSIONS: Depression, unspecified PLAN: -Attempted to see patient however he was off the unit for EEG. Will reattempt tomorrow to determine disposition -Communicated plan to patient's nurse -Will continue to follow along -Please contact with any questions.
--- NOTE | 2024-07-18 14:38 | P.CNNES ---
History of Present Illness Consult date: 07/18/24 Requesting physician: Tyesha Judge Reason for Consult: seizure History of Present Illness: Patient is a 64-year-old gentleman who presented emergency department because of suicidal thoughts. Patient states that in the last 1 month he lost his house, lost his job and lost his dog. He thought about ending his life but upon further thought he decided to come to the hospital for further help. Patient stated while he is in the ED he noticed his right arm extended up and some shaking. Does not recall how long it lasted for. He denies any warning sign. He denies any history of seizure. He stated after the episode he had bowel incontinence. I was notified by the ED nurse, yesterday that the patient had 2 seizure-like activity lasting for 2 minutes each. As a result yesterday patient was started on Keppra. Patient denies any further seizure-like activity. He does acknowledge that he drinks alcohol but he states he drinks twice a week and drinks about two of 24 oz each time. Some of the workup during this hospital visit consisted of: AST is 160 ALT is 77 Magnesium is 1.1, initial serum glucose is 177. Urine drug screen is positive for marijuana. Otherwise rest is not detected. Serum alcohol is less than 10 CT of the head is reported as no acute bleed or mass effect. Mild senescent changes. I personally reviewed the CT and agree no acute or subacute stroke. Patient does have hydrocephalus of the posterior lateral ventricles CT cervical spine is reported as no acute trauma. Advanced degenerative disc disease and osteoarthritis of the cervical spine. Review of Systems As per HPI. Past Medical History Past Medical History: Diabetes Mellitus Additional Past Medical History / Comment(s): gout, hep c (cured), ETOH, CHI History of Any Multi-Drug Resistant Organisms: MRSA Date of last positivie culture/infection: 1985 MDRO Source:: fanny Past Surgical History: Orthopedic Surgery Additional Past Surgical History / Comment(s): celsa knee Past Anesthesia/Blood Transfusion Reactions: No Reported Reaction Past Psychological History: Anxiety, Depression Smoking Status: Never smoker Past Alcohol Use History: Daily Additional Past Alcohol Use History / Comment(s): Pt states that he only drinks "a couple beers every day" Past Drug Use History: Marijuana Medications and Allergies Home Medications Medication Instructions Recorded Confirmed Type No Known Home Medications 07/17/24 07/17/24 History Allergies Allergy/AdvReac Type Severity Reaction Status Date / Time Sulfa (Sulfonamide Allergy Rash/Hives Verified 07/17/24 16:35 Antibiotics) Physical Examination - Vital Signs Vital Signs: Vital Signs Temp Pulse Resp BP Pulse Ox 07/18/24 07:07 97.9 F 66 18 119/76 99 07/18/24 06:00 97.9 F 68 18 112/78 98 07/18/24 02:30 73 16 120/86 99 07/17/24 20:17 90 112/83 99 07/17/24 19:34 103 H 115/83 100 07/17/24 18:00 93 18 155/86 99 07/17/24 16:44 89 18 162/94 99 Intake and Output 07/17/24 07/18/24 07/18/24 22:59 06:59 14:59 Other: Voiding Method Toilet Weight 58.967 kg GENERAL: The patient is lying in bed and is not in acute distress. NEUROLOGICAL: Higher mental function: The patient is awake, alert, oriented to self, place and time. Is mildly slow and following commands. Is following commands but sometimes I had to repeat to command more than once. No aphasia and no neglect. Cranial nerves: The pupils are round, equal and reactive to light and accommodation. Visual espinosa are full to confrontation throughout. Extraocular movement is intact no nystagmus is noted. Facial sensation is normal to touch throughout. The facial strength is normal throughout. Hearing is normal bilaterally to hand rub. Tongue is midline and moved [id number] without any difficulty. No dysarthria is noted. Shoulder shrug is normal bilaterally. Motor: The strength is limited in assessing individual muscle strength but he is lifting all extremities above gravity and appears equally. Normal tone and bulk. Cerebellum: Normal finger to nose bilaterally. Sensation: Sensation is normal to touch throughout. Reflexes (right/left): 2+ throughout. Plantars are downgoing bilaterally. Results - Laboratory Findings CBC and BMP: 07/17/24 13:53 07/18/24 10:57 Abnormal Lab Findings: Abnormal Labs 07/17/24 07/17/24 07/17/24 12:59 13:53 13:53 RBC 3.76 L Hgb 12.5 L Hct 38.0 L MCV 101.1 H Plt Count 70 L Lymphocytes # 0.5 L Sodium Chloride 96 L Glucose 177 H POC Glucose (mg/dL) 205 H Magnesium 1.1 L Total Bilirubin 1.4 H AST 160 H ALT 77 H Total Protein 8.6 H Urine Glucose (UA) Urine Ketones Urine Blood Urine Bacteria Urine Mucus U Marijuana (THC) Screen 07/17/24 07/17/24 07/18/24 15:24 18:19 10:57 RBC Hgb Hct MCV Plt Count Lymphocytes # Sodium 134 L Chloride 96 L Glucose 155 H POC Glucose (mg/dL) 140 H Magnesium Total Bilirubin 1.6 H AST 118 H ALT 60 H Total Protein Urine Glucose (UA) 2+ H Urine Ketones 2+ H Urine Blood Trace H Urine Bacteria Rare H Urine Mucus Rare H U Marijuana (THC) Screen Detected H 07/18/24 12:17 RBC Hgb Hct MCV Plt Count Lymphocytes # Sodium Chloride Glucose POC Glucose (mg/dL) 139 H Magnesium Total Bilirubin AST ALT Total Protein Urine Glucose (UA) Urine Ketones Urine Blood Urine Bacteria Urine Mucus U Marijuana (THC) Screen Assessment and Plan Assessment: This is a 64-year-old gentleman who presented emergency department because of suicide ideation. Seems well he is a emergency department according to the nurse he had 2 seizure-like activity lasting for 2 minutes each. Patient states that he had bowel incontinence. He does drink alcohol but he states he drinks twice a week last drink was about 5 days ago. He denies any significant alcohol use. His AST is more than ALT as well as patient has hypomagnesemia. New onset seizure and likely provoked due to electrolyte imbalance in which the patient has hypomagnesemia of 1.1 as well as there is a concern for withdrawal seizure but he denies any severe alcohol use. AST is twice as much as ALT and unsure if that is due to alcohol use. His last drink was about 5 days ago. Suicidal ideation Hypomagnesemia Transaminitis Generalized weakness due to electrolyte imbalance. Plan: I started the patient on Keppra 500 mg every 12 hours yesterday I was not aware of his psychiatric issues therefore I stopped because and because worsening mood behavioral issue and I started the patient on Vimpat 50 mg twice daily. Will obtain routine EEG I ordered vitamin B12, folate, TSH, ammonia level Seizure precautions seizure pads Per the [facility] because of seizure, to avoid driving for 6 months until seizure-free, Psychiatry is consulted On thiamine. Will defer the rest of the medical management to primary other specialist Thank you for the consultation. Time with Patient: Greater than 30
[2024-07-18] MEDS: MAGNESIUM SULFATE-D5W PMX 1 GM in DEXTROSE/WATER 1 100ML.BAG IVPB SCH (15:02)
[2024-07-18] MEDS: LORATADINE 10 MG TAB PO SCH (16:11)
[2024-07-18 17:47] LABS: Glucose,Whole Blood 106 mg/dL (70-110)
[2024-07-18] MEDS: FLUTICASONE NASAL 50MCG/SPRAY 16GM BTL EA NOSTRIL SCH (17:49)
[2024-07-18] MEDS: CIPROFLOXACIN-DEXAMETH 0.3-0.1% DROPS 7.5 ML BTL BOTH EARS SCH (17:49)
[2024-07-18 20:36] LABS: Glucose,Whole Blood 184 mg/dL (70-110)
[2024-07-18] MEDS: LACOSAMIDE 50 MG TABLET PO SCH (20:36)
--- NOTE | 2024-07-18 20:47 | EEG ---
ELECTROENCEPHALOGRAM REPORT CLINICAL HISTORY: This is a 64-year-old gentleman with reported memory issues and blackouts. The video EEG is obtained to evaluate for seizure epileptiform activity. RELEVANT MEDICATIONS: The patient is not on any antiseizure medication that is reported on the optometric technician report. EEG TYPE: This is a routine 21-channel EEG with video using the 10/20 electrode placement system. DESCRIPTION: Wakefulness is only obtained. During awake state, the posterior-dominant rhythm consists of mrd-bj-ldjraggy voltage of 8.5 to 9 hertz activity that is well modulated and well sustained. There is no physiological stage 2 sleep architecture. There is no focal slowing. Interictal and ictal is none. ACTIVATION PROCEDURE: Photic stimulation did not evoke a posterior driving response. There is no abnormality during the photic stimulation. Hyperventilation is not performed. CLINICAL INTERPRETATION: This is a normal routine EEG during awake state. There is no focal slowing, epileptiform discharge, or seizure on the EEG. A normal routine EEG does not rule out underlying epilepsy. Clinical correlation is recommended. MMJAKE / ROYCE: [id number] /
[2024-07-19 02:52] VITALS: RESP 16
[2024-07-19] MEDS: PANTOPRAZOLE 40 MG TABLET PO SCH (05:51)
[2024-07-19 05:54] LABS: Glucose,Whole Blood 145 mg/dL (70-110)
--- NOTE | 2024-07-19 08:26 | EEG ---
ELECTROENCEPHALOGRAM REPORT CLINICAL HISTORY: This is a 64-year-old gentleman with seizure-like activity. The video EEG is obtained to evaluate for seizure epileptiform activity. RELEVANT MEDICATIONS: 1. Keppra. 2. Ativan p.r.n. EEG TYPE: This is a routine 21-channel EEG with video using the 10/20 electrode placement system. DESCRIPTION: Wakefulness and brief drowsiness are obtained. During awake state, the posterior- dominant rhythm consists of rek-mx-ugwohhus voltage of 8.5 to 9 hertz activity that is well modulated, and well sustained. There is no physiological stage 2 sleep architecture. There is no focal slowing. Interictal and ictal is none. ACTIVATION PROCEDURE: Photic stimulation did not evoke a posterior driving response. There is no abnormality during the photic stimulation. Hyperventilation is not performed. CLINICAL INTERPRETATION: This is a normal routine EEG during awake and brief drowsiness. Otherwise, there is no focal slowing, epileptiform discharge, or seizure on the EEG. Normal routine EEG does not rule out underlying epilepsy. Clinical correlation is recommended. AMI / RONNYN: [id number] /
[2024-07-19] MEDS: MAGNESIUM SULFATE-D5W PMX 1 GM in DEXTROSE/WATER 1 100ML.BAG IVPB ONE (11:16)
[2024-07-19 12:27] LABS: Glucose,Whole Blood 243 mg/dL (70-110)
[2024-07-19 13:15] VITALS: BMI 22.3
[2024-07-19] MEDS: BUTALB/APAP/CAFF 50-325-40MG TAB PO PRN (13:31)
--- NOTE | 2024-07-19 13:38 | P.PN ---
Progress Note - Text Progress Note Date: 07/19/24 IDENTIFYING DATA: This patient is a 64-year-old male, recently homeless and unemployed REASON FOR REFERRAL: Psychiatry was consulted for depression, SI HISTORY OF PRESENT ILLNESS: The patient presented to the hospital with SI. Patient was started on Vimpat for seizures. Patient seen and evaluated in his room with sitter at bedside. He states within a few days he lost his job, his apartment, and had to give up his dog as a result. He states he is now homeless and had been staying at a park however it became too cold which caused him to come to the hospital. He no longer feels suicidal, stating his last suicidal thoughts were 2 days ago. He does report some sleep difficulties, or c oncentration and anhedonia but denied any appetite changes or low energy. He was interested in becoming connected with the counselor for therapy given his recent psychosocial stressors and this was encouraged. A list of local resources was already provided to him by staff. At this time patient denies any suicidal or homicidal ideations, intent or plan. Patient denies any auditory, visual hallucinations and denies any paranoia or delusions. Patients admits to using no substances, states he quit drinking 5 days ago and this was not daily. UDS was positive for cannabis despite him denying its use. PAST PSYCHIATRIC HISTORY: Patient has a history of MDD, generalized anxiety disorder, alcohol use disorder. Patient denies being on any psychiatric medications. Patient was last on the [facility] back in July 2021. Patient denies any psychiatric outpatient follow-up. She reports 1 previous suicide attempt in 2021. PAST MEDICAL HISTORY: Diabetes. ALLERGIES: as per EMR. CHEMICAL DEPENDENCY HISTORY: as per HPI. FAMILY PSYCHIATRIC/SUBSTANCE USE HISTORY: Patient states his brother had depression and abuse substances SOCIAL HISTORY: Patient is single and has no children. He completed college however was recently laid off from his job, currently unemployed and homeless. MENTAL STATUS EXAM: General Appearance: Patient appears to be stated age is alert, pleasant, and cooperative. Patient appears to have poor hygiene and grooming wearing hospital gown with fair eye contact. Behavior: Patient is calmly lying in bed without any agitated behavior. Speech: Patient's speech is fluent and nonpressured. Mood/Affect: Patient reports their mood is "depressed", affect is congruent Suicidality/Homicidality: Patient denies having any suicidal or homicidal ideation intent or plan. Perceptions: Patient denies any visual hallucinations and denies any auditory hallucinations Though content/process: There is no evidence of any delusional thought content and thought process is linear and logical. Memory and concentration: AOX3, grossly intact for the purposes of this session. Can spell "WORLD" backwards Judgment and insight: Poor IMPRESSIONS: Adjustment disorder with depressed and anxious mood Alcohol use disorder PLAN: -At this time patient DOES NOT meet criteria for inpatient psychiatric admission. -Would recommend the following medication changes/additions: Start Remeron 7.5 mg at bedtime for sleep/mood -CIWA protocol with PRN Ativan for alcohol withdrawal. Continue to monitor vital signs. -Can discontinue 1:1 sitter at this time as patient is not currently an imminent threat to themselves -channel worker to provide patient with outpatient mental health/psychiatry resources for appropriate follow up upon discharge -Communicated plan to patient's nurse -Psychiatry will sign off at this time -Please contact with any questions.
[2024-07-19 14:35] VITALS: BP 111/71; PULSE 71; TEMP 98.1
--- NOTE | 2024-07-19 15:43 | P.PN ---
Subjective Progress Note Date: 07/19/24 I am following-up with patient and no further seizure-like episode. He stated he had mild tremor but no seizures. Objective - Vital Signs Vital signs: Vital Signs Temp 98.1 F 07/19/24 14:35 Pulse 71 07/19/24 14:35 Resp 16 07/19/24 14:35 BP 111/71 07/19/24 14:35 Pulse Ox 100 07/19/24 14:35 FiO2 Intake & Output 07/18/24 07/19/24 07/19/24 18:59 06:59 18:59 Intake Total 221 Balance 221 Weight 58.967 kg Intake: Oral 221 Other: Voiding Method Toilet Toilet Toilet # Voids 2 2 2 - Exam GENERAL: The patient is lying in bed and is not in acute distress. NEUROLOGICAL: Higher mental function: The patient is awake, alert, oriented to self, place and time. Is mildly slow and following commands. Is following commands but sometimes I had to repeat to command more than once. No aphasia and no neglect. Cranial nerves: The pupils are round, equal and reactive to light and accommodation. Visual espinosa are full to confrontation throughout. Extraocular movement is intact no nystagmus is noted. Facial sensation is normal to touch throughout. The facial strength is normal throughout. Hearing is normal bilaterally to hand rub. Tongue is midline and moved [id number] without any difficulty. No dysarthria is noted. Shoulder shrug is normal bilaterally. Motor: The strength is limited in assessing individual muscle strength and felt there is effort related but is lifting all extremities and appears equal. Normal tone and bulk. Cerebellum: Normal finger to nose bilaterally. Sensation: Sensation is normal to touch throughout. Plantars are downgoing bilaterally. Some of the workup during this hospital visit consisted of: AST is 160 ALT is 77 Magnesium is 1.1, initial serum glucose is 177. Urine drug screen is positive for marijuana. Otherwise rest is not detected. Serum alcohol is less than 10 CT of the head is reported as no acute bleed or mass effect. Mild senescent changes. I personally reviewed the CT and agree no acute or subacute stroke. Patient does have hydrocephalus of the posterior lateral ventricles CT cervical spine is reported as no acute trauma. Advanced degenerative disc disease and osteoarthritis of the cervical spine. Routine EEG: Normal. - Labs CBC & Chem 7: 07/17/24 13:53 07/18/24 10:57 Labs: Abnormal Lab Results - Last 24 Hours (Table) 07/18/24 07/19/24 07/19/24 Range/Units 20:35 05:52 12:25 POC Glucose (mg/dL) 184 H 145 H 243 H (70-110) mg/dL Assessment and Plan Assessment: This is a 64-year-old gentleman who presented emergency department because of suicide ideation. Seems well he is a emergency department according to the nurse he had 2 seizure-like activity lasting for 2 minutes each. Patient states that he had bowel incontinence. He does drink alcohol but he states he drinks twice a week last drink was about 5 days ago. He denies any significant alcohol use. His AST is more than ALT as well as patient has hypomagnesemia. New onset seizure and likely provoked due to electrolyte imbalance in which the patient has hypomagnesemia of 1.1 as well as there is a concern for withdrawal seizure but he denies any severe alcohol use. AST is twice as much as ALT and unsure if that is due to alcohol use. His last drink was about 5 days ago. Suicidal ideation Hypomagnesemia Transaminitis Generalized weakness due to electrolyte imbalance. Plan: I started the patient on Keppra 500 mg every 12 hours yesterday I was not aware of his psychiatric issues therefore I stopped because and because worsening mood behavioral issue and I started the patient on Vimpat 50 mg twice daily. EEG: Normal. Seizure precautions seizure pads Per the [place] DMV because of seizure, to avoid driving for 6 months until seizure-free from last event. Recommend MRI Brain seizure protocol as outpatient. Psychiatry is consulted On thiamine. PT and OT are consulted. Will defer the rest of the medical management to primary other specialist Recommend the patient to follow-up with neurologist as outpatient within 2 wee ks. There is no further neurological work-up. Will sign off. Please reconsult if needed. Time with Patient: Less than 30
[2024-07-19] MEDS ORDERED: MIRTAZAPINE 15 MG TAB PO SCH (21:00)
--- NOTE | 2024-07-23 08:28 | P.DS ---
Providers Date of admission: 07/17/24 16:17 Attending physician: Flo Herrera MD Consults: 07/17/24 16:06 Consult Physician Routine Consulting Provider: Psychiatry - [facility] Psychiatry Consult Reason/Comments: depression, SI Do you want consulting provider notified?: Yes 07/17/24 18:22 Consult Physician Routine Consulting Provider: Venancio Wagoner Consult Reason/Comments: Seizure Do you want consulting provider notified?: Yes Primary care physician: Stated None Hospital Course: Final Diagnosis Generalized fall and weakness likely from chronic medical debility and alcoholism Seizure x 2 likely alcohol withdrawal seizure Thrombocytopenia from alcoholism Diabetes Mellitus type 2 Depression and suicidal ideations Hypomagnesemia Alcoholic hepatitis Chronic alcoholism Marijuana use Discharge Disposition Patient stable for discharge home. Patient will discharge homeless with resources given. He is recommended to follow-up with community mental health. Patient to follow-up with a neurologist on discharge. Patient notified per the [place] DMV because of seizure to avoid driving for 6 months until seizure-free from last event. Patient to have brain MRI on an outpatient basis after follow-up. He has to establish care with a primary care provider. Patient's hemoglobin A1c was found to be 5.9 and his blood glucose has been fairly well- controlled I would recommend no diabetic medication on discharge. Hospital Course This is a 64-year-old male with medical history significant for chronic alcoholism, diabetes mellitus, gout, depression patient comes to the hospital with complaints of suicidal ideations and worsening depression since becoming homeless earlier this week. He was evicted on Monday. He had a fall yesterday morning causing him to lose balance and hit his head. He presents to the ER for further evaluation. Patient was complaining of a moderate headache, without any visual changes. He has not been having any hallucinations or focal weakness. Reports elevated blood sugars states he was supposed to be on injection but he has been unable to get his medication. He has not been in to see a family doctor in a long time. Patient states that he has 1 family member who is unable to take him in. He states that he was kicked out of his house and lost all of his belongings and clothing etc. He since has been homeless. Patient does report to drinking alcohol about every other day. He was noted to have a 2-minute long seizure while in the emergency center, per nursing reports patient had a 2- minute long episode of shaking and rigid muscles. He was given as needed Ativan with cessation of the seizure. Patient was then noted to have a second seizure. Neurology was consulted and patient was started prophylactically on Keppra and loading dose was given. Initial labs reveal white blood cell count hemoglobin 12.5, platelet count of 70, sodium 137, BUN of 18, creatinine 0.72 magnesium 1.1, total bili 1.4, AST of 160 ALT of 77. Blood glucose is elevated in the 140s urinalysis was negative for infection. His urine drug toxicology shows positive for marijuana with a serum alcohol level less than 10. COVID was negative admitted to the hospital under internal medicine with a consult placed to neurology. Patient will need to see physical therapy. He continues to report suicidal thoughts and has a director medical safety at the bedside. Psychiatry was consulted. Patient underwent EEG with no seizure or epileptiform activity noted. Psychiatry has cleared the patient for discharge and not recommending inpatient psychiatric care. Patient was complaining of some allergic rhinitis as well as ear fullness and pain. He was discharged on 4 more days of Ciprodex eardrops as well as Claritin daily. At the recommendations of psychiatry patient was started on Remeron 7.5 mg at at bedtime. Patient was started on Vimpat 50 mg twice daily for seizure prophylaxis. Please see medication reconciliation for a list of current medications. Thank you for allowing us to participate in the care of this patient. The impression and plan of care has been dictated by Shirley Patiño, Nurse Practitioner as directed. Dr. Samantha MD I have performed a history and physical examination and medical decision making of this patient, discussed the same with the dictator, and agree with the dictators assessment and plan as written, documented as a scribe. Based on total visit time, I have performed more than 50% of this visit. Patient Condition at Discharge: Stable Plan - Discharge Summary Discharge Rx Participant: No New Discharge Prescriptions: New Ciprofloxacin-Dexameth [Ciprodex Otic Susp] 4 drops BOTH EARS BID 4 Days #2 ml Mirtazapine [Remeron] 7.5 mg PO HS 28 Days #14 tab Thiamine [Vitamin B-1] 100 mg PO DAILY #30 tab Loratadine [Claritin] 10 mg PO DAILY tab Pantoprazole [Protonix] 40 mg PO AC-BRKFST #30 tab Lacosamide [Vimpat] 50 mg PO BID 14 Days #28 tab Discharge Medication List Ciprofloxacin-Dexameth [Ciprodex Otic Susp] 4 drops BOTH EARS BID 4 Days #2 ml 07/19/24 [Rx] Lacosamide [Vimpat] 50 mg PO BID 14 Days #28 tab 07/19/24 [Rx] Loratadine [Claritin] 10 mg PO DAILY tab 07/19/24 [Rx] Mirtazapine [Remeron] 7.5 mg PO HS 28 Days #14 tab 07/19/24 [Rx] Pantoprazole [Protonix] 40 mg PO AC-BRKFST #30 tab 07/19/24 [Rx] Thiamine [Vitamin B-1] 100 mg PO DAILY #30 tab 07/19/24 [Rx] Follow up Appointment(s)/Referral(s): None,Stated [Primary Care Provider] - 1-2 days Jayleen Bowden MD [Medical Doctor] - 1 Week [facility] [NON-STAFF] - 1 Week Activity/Diet/Wound Care/Special Instructions: Follow up and establish care with a neurologist on discharge Follow up at [facility] Discharge/Stand Alone Forms: AA Meetings [place], [facility], [facility] Shelters, Who Do I Call?, Community Resources, Outpatient Counseling, Inp Substance Abuse Facilities, Area PCPs Discharge Disposition: HOME SELF-CARE
== END 2024-07-19 16:50 | disposition home or self-care (01) ==
LOC: EC 12:53 → 6NMEDSUR 16:17
PROVIDERS: ADMIT Internal Medicine; ATTEND Internal Medicine
DX: D69.59 Other secondary thrombocytopenia (principal); E11.65 Type 2 diabetes mellitus with hyperglycemia; E83.42 Hypomagnesemia; F10.239 Alcohol dependence with withdrawal, unspecified; F43.23 Adjustment disorder with mixed anxiety and depressed mood; F32.9 Major depressive disorder, single episode, unspecified; G91.9 Hydrocephalus, unspecified; F41.1 Generalized anxiety disorder; K70.10 Alcoholic hepatitis without ascites; M47.812 Spondylosis without myelopathy or radiculopathy, cervical region; R45.851 Suicidal ideations; R56.9 Unspecified convulsions; W19.XXXA Unspecified fall, initial encounter; J30.9 Allergic rhinitis, unspecified; M10.9 Gout, unspecified; Z56.0 Unemployment, unspecified; Z59.00 Homelessness unspecified; Z91.51 Personal history of suicidal behavior; Z79.899 Other long term (current) drug therapy; Z88.2 Allergy status to sulfonamides; Z86.19 Personal history of other infectious and parasitic diseases
CPT/HCPCS: 96376; 96366 ×4; 82075; 96361; 96365; 96375; 99285; 36415; 95816; 97110; 97161; 97165; 80053 ×2; 84443; 82607; 82140; 82746; 83735 ×3; 85025; 81001; 80306; 83036; 87635; 72125; 70450; G0378 ×3; G0480; J2060; J3475 ×3; J1953 ×2; 80320

== ENCOUNTER → 2024-08-07 | Outpatient (CLI) | payer OTHER ==
--- NOTE | 2024-08-07 09:25 | US ---
EXAMINATION TYPE: US abdomen complete DATE OF EXAM: 08/07/2024 COMPARISON: 09/26/2023 CLINICAL INDICATION: Male, 64 years old with history of F10.10 Chronic alcohol abuse; hx liver steato sis TECHNIQUE: Grayscale and color Doppler imaging of the abdomen was performed. FINDINGS: EXAM MEASUREMENTS: Liver Length: 11.3 cm Gallbladder Wall: 0.2 cm CBD: 0.7 cm, color Doppler imaging was utilized to isolate the common bile duct for measurement. Spleen: 9.3 cm Right Kidney: 10.8 x 5.2 x 4.2 cm Left Kidney: 11.2 x 4.2 x 4.6 cm Pancreas: head and partial tail obscured by overlying bowel gas, heterogenous Liver: wnl, no dilated ducts, masses or cysts. Gallbladder: wnl Evidence for sonographic Casas's sign: neg CBD: wnl Spleen: wnl Right Kidney: wnl, No hydronephrosis, calculi or masses seen Left Kidney: wnl, No hydronephrosis, calculi or masses seen Upper IVC: wnl Abd Aorta: No AAA visualized at time of scan The liver is homogenous. The intrahepatic portion of the IVC and proximal abdominal aorta are within normal limits. There is no evidence of cholelithiasis. Common bile duct is unremarkable. The visu alized portions of the pancreas are homogenous. The spleen is unremarkable. Kidneys are symmetric a nd free of hydronephrosis. No renal lesions are seen. IMPRESSION: No evidence for acute process. [facility], , 08/07/2024 9:23 AM
== END | disposition home or self-care (01) ==
LOC: RADUSWWP 08:44
PROVIDERS: ATTEND Family Medicine
DX: K76.0 Fatty (change of) liver, not elsewhere classified (principal); F10.10 Alcohol abuse, uncomplicated
CPT/HCPCS: 76700

== ENCOUNTER 2024-09-26 15:24 | Emergency (ER) | payer OTHER ==
--- NOTE | 2024-09-26 15:46 | ED ---
Fall HPI - General Stated Complaint: Fall/Head Injury Time Seen by Provider: 09/26/24 15:31 - History of Present Illness Initial Comments: This patient is a 64-year-old man who presents to have evaluation after a fall. The patient states that he had been drinking and must have lost his balance and fallen. He complains of striking the left frontal area of his head. He does not believe he lost consciousness. EMS was called and brought the patient here. He denies other injuries. Patient states that his tetanus shot is "good." MD Complaint: fall -: minutes(s) Fall From: standing When Fall Occurred: just prior to arrival Fall Witnessed: yes, by bystander Place Fall Occurred: street Loss of Consciousness: unsure Prolonged Down Time?: no Symptoms Prior to Fall: none Location: head Severity: mild Severity scale (1-10): 1 Context: tripped/slipped, alcohol use Associated Symptoms: headache - Related Data Previous Rx's Medication Instructions Recorded HYDROcodone/APAP 5-325MG [Rawlings 1 tab PO Q6HR PRN 2 Days #8 tab 10/05/24 5-325] Meloxicam [Mobic] 7.5 mg PO DAILY PRN 5 Days #5 tab 10/05/24 metFORMIN HCL [Glucophage] 1,000 mg PO BID #60 tab 10/05/24 Allergies Allergy/AdvReac Type Severity Reaction Status Date / Time Sulfa (Sulfonamide Allergy Rash/Hives Verified 10/02/24 15:47 Antibiotics) Review of Systems ROS Statement: Those systems with pertinent positive or pertinent negative responses have been documented in the HPI. ROS Other: All systems not noted in ROS Statement are negative. Constitutional: Denies: fever, chills, weakness Eyes: Denies: vision change ENT: Denies: epistaxis Respiratory: Denies: cough, dyspnea Cardiovascular: Denies: chest pain, syncope Gastrointestinal: Denies: abdominal pain, nausea, vomiting Genitourinary: Denies: dysuria Musculoskeletal: Denies: back pain Skin: Denies: rash Neurological: Reports: headache. Denies: weakness, numbness Hematological/Lymphatic: Denies: easy bleeding Past Medical History Past Medical History: Diabetes Mellitus Additional Past Medical History / Comment(s): gout, hep c (cured), ETOH, CHI History of Any Multi-Drug Resistant Organisms: MRSA Date of last positivie culture/infection: 1986 MDRO Source:: pinky Past Surgical History: Orthopedic Surgery Additional Past Surgical History / Comment(s): celsa knee Past Anesthesia/Blood Transfusion Reactions: No Reported Reaction Past Psychological History: Anxiety, Depression Smoking Status: Never smoker Past Alcohol Use History: Daily Additional Past Alcohol Use History / Comment(s): Pt states that he only drinks "a couple beers every day" Past Drug Use History: Marijuana General Exam General appearance: alert, in no apparent distress, appears intoxicated Head exam: Present: other (Left frontal abrasion. Mild swelling and tenderness. No obvious deformity) Eye exam: Present: normal appearance, PERRL, EOMI, nystagmus. Absent: scleral icterus, conjunctival injection ENT exam: Present: normal oropharynx Neck exam: Present: normal inspection, full ROM. Absent: tenderness, meningismus Respiratory exam: Present: normal lung sounds bilaterally. Absent: respiratory distress, wheezes, rales, rhonchi, stridor, chest wall tenderness, accessory muscle use Cardiovascular Exam: Present: regular rate, normal rhythm, normal heart sounds. Absent: systolic murmur, diastolic murmur, rubs, gallop GI/Abdominal exam: Present: soft. Absent: distended, tenderness, guarding, rebound, rigid, mass Extremities exam: Present: normal inspection, normal capillary refill. Absent: pedal edema, calf tenderness Back exam: Present: normal inspection. Absent: CVA tenderness (R), CVA tenderness (L), vertebral tenderness Neurological exam: Present: alert, oriented X3. Absent: motor sensory deficit Skin exam: Present: warm, dry, intact, normal color. Absent: rash Course Vital Signs 09/26/24 09/26/24 15:45 17:37 Temperature 94 F L 97.9 F Pulse Rate 94 91 Respiratory 16 16 Rate Blood Pressure 108/71 101/72 O2 Sat by Pulse 96 96 Oximetry Medical Decision Making - Medical Decision Making Patient had CT scan of the brain and C-spine that I interpreted as negative for acute intracranial hemorrhage, mass effect or midline shift. No acute bony injury. Was pt. sent in by a medical professional or institution (, PA, AUTOMATIC FURNACE OPERATOR, urgent care, hospital, or long term...) When possible be specific @ -[No] Did you speak to anyone other than the patient for history (EMS, parent, family, police, friend...)? What history was obtained from this source @ -[No] Did you review nursing and triage notes (agree or disagree)? Why? @ -[I reviewed and agree with nursing and triage notes] Were old charts reviewed (outside hosp., previous admission, EMS record, old EKG, old radiological studies, urgent care reports/EKG's, long term records)? Report findings @ -[No old charts were reviewed] Differential Diagnosis (chest pain, altered mental status, abdominal pain women, abdominal pain men, vaginal bleeding, weakness, fever, dyspnea, syncope, headache, dizziness, GI bleed, back pain, seizure, CVA, palpatations, mental health, musculoskeletal)? @ -[Differential Headache: Migraine, tension, cluster, carbon monoxide, central venous thrombosis, pension karma temporal arteritis, acute closure glaucoma, intercranial hemorrhage, mastoiditis, sinusitis, head injury, this is not meant to be an all-inclusive list. EKG interpreted by me (3pts min.). @ -[I interpreted as above] X-rays interpreted by me (1pt min.). @ -[None done] CT interpreted by me (1pt min.). @ -[I interpreted as above U/S interpreted by me (1pt. min.). @ -[None done] What testing was considered but not performed or refused? (CT, X-rays, U/S, labs)? Why? @ -[None] What meds were considered but not given or refused? Why? @ -[None] Did you discuss the management of the patient with other professionals (professionals i.e. , PA, AUTOMATIC FURNACE OPERATOR, lab, RT, psych nurse, social media marketing analyst, technical applications scientist, teacher, supervisory cbp officer, shoe parts caser)? Give summary @ -[No] Was smoking cessation discussed for >3mins.? @ -[No] Was critical care preformed (if so, how long)? @ -[No] Were there social determinants of health that impacted care today? How? (Homelessness, low income, unemployed, alcoholism, drug addiction, transportation, low edu. Level, literacy, decrease access to med. care, usp, rehab)? @ -[No] Was there de-escalation of care discussed even if they declined (Discuss DNR or withdrawal of care, Hospice)? DNR status @ -[No] What co-morbidities impacted this encounter? (DM, HTN, Smoking, COPD, CAD, Cancer, CVA, ARF, Chemo, Hep., AIDS, mental health diagnosis, sleep apnea, morbid obesity)? @ -[None] Was patient admitted / discharged? Hospital course, mention meds given and route, prescriptions, significant lab abnormalities, going to OR and other pertinent info. @ -[Patient is a 64-year-old man here to have evaluation after fall. The patient did have CT scan as he was intoxicated and not entirely reliable physical exam. Following that the patient expressed desire to go. He stated that there was someone he could stay with but he did not have someone to drive him. I did state that if he could take a cab he could go. Undiagnosed new problem with uncertain prognosis? @ -[No] Drug Therapy requiring intensive monitoring for toxicity (Heparin, Nitro, Insulin, Cardizem)? @ -[No] Were any procedures done? @ -[No] Diagnosis/symptom? @ -Acute alcohol intoxication Acute closed head injury Acute, or Chronic, or Acute on Chronic? @ -[Acute Uncomplicated (without systemic symptoms) or Complicated (systemic symptoms)? @ -[Uncomplicated Side effects of treatment? @ -[No] Exacerbation, Progression, or Severe Exacerbation? @ -[No] Poses a threat to life or bodily function? How? (Chest pain, USA, [place], pneumonia, PE, COPD, DKA, ARF, appy, cholecystitis, CVA, Diverticulitis, Homicidal, Suicidal, threat to staff... and all critical care pts) @ -[No] All treatments are based on ideal body weight as in ED triage Disposition Clinical Impression: Alcohol intoxication, Head injury Disposition: HOME SELF-CARE Condition: Good Instructions (If sedation given, give patient instructions): Head Injury (ED), Alcohol Intoxication (DC) Is patient prescribed a controlled substance at d/c from ED?: No Referrals: Alexa Ramirez MD [Primary Care Provider] - 1-2 days
[2024-09-26 15:54] VITALS: RESP 16
--- NOTE | 2024-09-26 16:38 | CT ---
EXAMINATION TYPE: CT brain cspine wo con DATE OF EXAM: 09/26/2024 COMPARISON: 07/17/2024 CLINICAL INDICATION: Male, 64 years old with history of fall injury; PHH, Fall, Head pain. TECHNIQUE: CT scan of the head and cervical spine are performed without contrast. CT DLP: 1332.[address] CTDI: mGy Automated exposure control for dose reduction was used. Findings: Head CT: The ventricles and basal cisterns and sulci over convexities are moderately enlarged consistent with moderate generalized atrophy. There is mild decreased density in the periventricular white matter con sistent with mild chronic ischemic white matter demyelination. There is no mass effect or shift of mi dline structures. There is no acute intra or extra-axial hemorrhage. Posterior fossa including the brainstem, fourth ventricle and cerebellar pontine angles are grossly n ormal. The intraorbital contents appear normal and symmetric. Visualized paranasal sinuses are well aerated. CT cervical spine: Craniovertebral junction relationships and prevertebral soft tissues are normal. The cervical vertebral segments are normal in height and alignment and there is no fracture subluxati on. There is moderate disc space narrowing and spondylosis from C3 through T1 consistent with moderate mu ltilevel degenerative disc disease. There is moderate degeneration of the uncovertebral joints from C3 through T1. There is no bony encroachment of the spinal canal. There is multilevel bony neural foraminal encroachment as follows; moderate to severe at C3-4 on the left, mild at C4-5 bilaterally, severe at C5-6 on the right, moderate C5-6 on the left, and severe at C6-7 on the left and moderate at C6-7 on the right. The paraspinal soft tissues unremarkable. IMPRESSION: 1. Head CT: No acute bleed or mass effect. Stable [id number] senescent changes 2. CT cervical spine: No acute trauma. Stable degenerative changes as described above. [facility], , 09/26/2024 4:36 PM
[2024-09-26 17:39] VITALS: BP 101/72; PULSE 91; TEMP 97.9
== END 2024-09-26 17:46 | disposition home or self-care (01) ==
LOC: EC 15:24
DX: S09.90XA Unspecified injury of head, initial encounter (principal); F10.129 Alcohol abuse with intoxication, unspecified; Z88.2 Allergy status to sulfonamides; W01.0XXA Fall on same level from slipping, tripping and stumbling without subsequent striking against object, initial encounter; Y92.410 Unspecified street and highway as the place of occurrence of the external cause
CPT/HCPCS: 70450; 72125; 99284